=== PATIENT | male | born 1955 | race Caucasian/White ===

== ENCOUNTER 2016-09-18 07:43 | Emergency (ER) | payer MEDICAID ==
[2016-09-18] MEDS ORDERED: IPRATROPIUM/ALBUTEROL 3 ML NEB INH STA (08:20)
[2016-09-18] MEDS ORDERED: DEXAMETHASONE 10 MG/ML VIAL IVP STA (08:21)
[2016-09-18] MEDS ORDERED: DEXAMETHASONE 10 MG/ML VIAL ONE (08:27)
== END 2016-09-18 09:59 | disposition home or self-care (01) ==
DX: J44.1 Chronic obstructive pulmonary disease with (acute) exacerbation (principal); J45.901 Unspecified asthma with (acute) exacerbation; F17.200 Nicotine dependence, unspecified, uncomplicated
CPT/HCPCS: 36415; 71020; 80053; 83690; 83735; 83880; 84484; 85025; 93005; 93010; 94640; 96374; 99283; 99284; J7620

== ENCOUNTER 2021-07-18 15:29 | Outpatient (CLI) | payer MEDICAID | END 2021-07-18 15:30 | disposition EMS.NT | LOC: EMS 15:29 | DX: R53.1 Weakness (principal) ==

== ENCOUNTER 2021-07-19 17:33 | Outpatient (CLI) | payer MEDICARE, MEDICAID | END 2021-07-19 17:34 | disposition critical access hospital (66) | LOC: EMS 17:33 | DX: R41.0 Disorientation, unspecified (principal); R60.0 Localized edema | CPT/HCPCS: A0425; A0429; A0999 ==

== ENCOUNTER 2021-07-19 17:57 | Inpatient (IN) | payer MEDICARE, MEDICAID ==
[2021-07-19] MEDS ORDERED: SODIUM CHLORIDE 0.9% 1,000 ML IV STA ×2 (19:08)
[2021-07-19] MEDS ORDERED: THIAMINE INJ 100 MG, MAGNESIUM SULFATE 2 GM, MULTIVITAMIN 10 ML, FOLIC ACID INJ 1 MG in... IV ONE ×5 (19:08)
--- NOTE | 2021-07-19 19:08 | ED Physician Documentation ---
History of Present Illness - Stated complaint Stated Complaint: WAITING ON PLACEMENT - Chief complaint Chief Complaint: General - History obtained from History obtained from: Patient, EMS - History of Present Illness Timing: Today Pain level max: 0 Pain level now: 0 - Additonal information Additional information: Patient is a 66-year-old male brought in by EMS tonight. He lives at home alone and his sister had called for a hospice consult. When the hospice nurse arrived, they noticed that the patient was too weak to stand and take care of himself. They did not feel safe leaving him at home and so brought him here for further evaluation. Reportedly the patient has not seen a doctor for many years. Has a history of COPD but does not use oxygen or any medications. He apparently has been living off of [employer] for the past week or so. His sister has been checking on him and has noted that he has become increasingly weak. Review of Systems Unable to obtain: Confused Constitutional: denies: Fever GI: denies: Vomiting PD PAST MEDICAL HISTORY - Past Medical History Cardiovascular: None Respiratory: None Endocrine/Autoimmune: None - Past Surgical History Ortho: Amputation - Present Medications Home Medications: Ambulatory Orders Medication Instructions Recorded Confirmed Albuterol Sulfate [Proair Hfa 2 puffs IH QID #1 hfa.aer.ad 09/18/16 Inhaler] Azithromycin [Zithromax] 250 mg PO DAILY #6 tablet 09/18/16 dexAMETHasone [Decadron] 4 mg PO DAILY #10 tablet 09/18/16 - Allergies Allergies/Adverse Reactions: Allergies Allergy/AdvReac Type Severity Reaction Status Date / Time Penicillins Allergy Anaphylaxis Verified 09/18/16 07:50 - Social History Does the pt smoke?: Yes Smoking Status: Current every day smoker Does the pt drink ETOH?: Yes Does the pt have substance abuse?: No - Immunizations Immunizations: TDAP >10years/unknown - POLST Patient has POLST: No PD ED PE NORMAL - Vitals Vital signs reviewed: Yes - General General: No acute distress, Other (Alert, oriented to person and place but not to time. Slow to respond to questions. Often will stare into space prior to answering any questions.) - HEENT HEENT: PERRL, Other (Dry lips and tongue) - Cardiac Cardiac: RRR, Strong equal pulses - Respiratory Respiratory: No respiratory distress, Clear bilaterally - Abdomen Abdomen: Soft, Non tender, Non distended, Other (Mild erythema to the umbilicus. No drainage. No abscess) - Back Back: No spinal TTP - Derm Derm: Warm and dry, No rash - Extremities Extremities: No calf tenderness / cord, Other (1+ bilateral peripheral edema) - Neuro Neuro: Alert and oriented X 3 - Psych Psych: Normal mood, Normal affect Results - Vitals Vitals: Vital Signs - 24 hr 07/19/21 07/19/21 07/19/21 18:06 18:11 20:11 Temperature 36.5 C Heart Rate 112 H 76 80 Respiratory 24 18 16 Rate Blood Pressure 117/84 H 134/76 H 128/80 O2 Saturation 100 99 98 07/19/21 20:48 Temperature Heart Rate 81 Respiratory 18 Rate Blood Pressure 141/71 H O2 Saturation 99 Oxygen O2 Source Room air - Labs Labs: Laboratory Tests 07/19/21 07/19/21 07/19/21 19:18 19:18 19:18 WBC 6.0 RBC 3.98 L Hgb 12.8 L Hct 35.6 L MCV 89.4 MCH 32.2 H MCHC 36.0 RDW 15.4 H Plt Count 286 MPV 10.8 Neut # (Auto) 4.6 Lymph # (Auto) 0.6 L [place] # (Auto) 0.7 Eos # (Auto) 0.0 Baso # (Auto) 0.0 Absolute Nucleated RBC 0.00 Nucleated RBC % 0.0 PT INR APTT Sodium 133 L Potassium 4.8 Chloride 99 L Carbon Dioxide 18 L Anion Gap 16.0 H BUN 58 H Creatinine 2.2 H Estimated GFR (MDRD) 30 L Glucose 108 H Calcium 9.7 Total Bilirubin 1.5 H AST 80 H ALT 80 H Alkaline Phosphatase 61 Total Protein 7.4 Albumin 4.1 Globulin 3.3 Albumin/Globulin Ratio 1.2 Lipase 118 H TSH 3.44 Salicylates < 6.0 Acetaminophen < 10 L Ethyl Alcohol < 5.0 07/19/21 19:18 WBC RBC Hgb Hct MCV MCH MCHC RDW Plt Count MPV Neut # (Auto) Lymph # (Auto) [place] # (Auto) Eos # (Auto) Baso # (Auto) Absolute Nucleated RBC Nucleated RBC % PT 9.6 L INR 0.9 APTT 29.0 Sodium Potassium Chloride Carbon Dioxide Anion Gap BUN Creatinine Estimated GFR (MDRD) Glucose Calcium Total Bilirubin AST ALT Alkaline Phosphatase Total Protein Albumin Globulin Albumin/Globulin Ratio Lipase TSH Salicylates Acetaminophen Ethyl Alcohol PD MEDICAL DECISION MAKING - ED course Complexity details: reviewed results, re-evaluated patient, considered differential, d/w patient, d/w [facility] consultant ED course: 66-year-old male with what appears to be failure to thrive and significant dehydration. He was given a banana bag as well as IV fluids. He has what is presumed to be acute renal failure, though no labs are available as he has not been to a doctor in many years. He does have confusion and some metabolic acidosis, unclear if this is from the alcohol use or the dehydration or some other cause. The patient is mentally improved after fluids, but still is having difficulty concentrating and following a conversation. He becomes intermittently confused at times. Possible metabolic encephalopathy versus alcohol related encephalopathy? We will place the patient in observation for continued IV hydration and further evaluation. Patient will also need to ensure that he can be fed and tolerate oral intake. Likely will need social work as well. Hospice will plan on consulting tomorrow. Discussed with Dr. Guillen, hospitalist who accepts This document was made in part using voice recognition software. While efforts are made to proofread this document, sound alike and grammatical errors may occur. Departure - Departure Disposition: ED Place in Observation Clinical Impression: Renal insufficiency, Dehydration, Protein-calorie malnutrition, severe, Ketoacidosis Failure to thrive Qualifiers: Failure to thrive age range: in adult Qualified Code(s): R62.7 - Adult failure to thrive Condition: Stable
[2021-07-19 19:25] LABS: BASOPHILS % (AUTO) 0.2 %; EOSINOPHILS % (AUTO) 0.2 %; HCT - HEMATOCRIT 35.6 % (42.0-52.0); HGB - HEMOGLOBIN 12.8 g/dL (14.0-18.0); LYMPHOCYTES # (AUTO) 0.6 10^3/uL (1.5-3.5); LYMPHOCYTES % (AUTO) 10.7 %; MEAN CORPUSCULAR HEMOGLOBIN 32.2 pg (27.0-31.0); MEAN CORPUSCULAR VOLUME 89.4 fL (80.0-94.0); MEAN PLATELET VOLUME 10.8 fL (7.4-11.4); MONOCYTES # (AUTO) 0.7 10^3/uL (0.0-1.0); NEUTROPHILS # (AUTO) 4.6 10^3/uL (1.5-6.6); NEUTROPHILS % (AUTO) 76.6 %; PLT - PLATELET COUNT 286 10^3/uL (130-450); RED BLOOD COUNT 3.98 10^6/uL (4.70-6.10); RED CELL DISTRIBUTION WIDTH 15.4 % (12.0-15.0)
[2021-07-19 19:31] LABS: INR 0.9 (0.8-1.2); PT - PROTHROMBIN TIME 9.6 secs (9.9-12.6)
[2021-07-19] MEDS ORDERED: THIAMINE 100 MG/1 ML 2 ML MDV ONE (19:33)
[2021-07-19] MEDS ORDERED: MAGNESIUM SULFATE 1 GM/2 ML VIAL ONE (19:33)
[2021-07-19 19:43] LABS: ACETAMINOPHEN < 10 ug/mL (10-30); ALBUMIN 4.1 g/dL (3.2-5.5); ALBUMIN/GLOBULIN RATIO 1.2 (1.0-2.2); ALKALINE PHOSPHATASE 61 IU/L (42-121); ALT ALANINE AMINOTRANSFERASE 80 IU/L (10-60); AST ASPARTATE AMINOTRANSFERASE 80 IU/L (10-42); BILIRUBIN,TOTAL 1.5 mg/dL (0.2-1.0); BUN - BLOOD UREA NITROGEN 58 mg/dL (6-20); CALCIUM 9.7 mg/dL (8.5-10.3); CARBON DIOXIDE - CO2 18 mmol/L (21-32); CHLORIDE 99 mmol/L (101-111); CREATININE 2.2 mg/dL (0.6-1.2); ETOH - ETHANOL < 5.0 mg/dL; GFR - MDRD 30 (>89); GLUCOSE 108 mg/dL (70-100); LIPASE 118 U/L (22-51); POTASSIUM 4.8 mmol/L (3.5-5.0); SALICYLATE < 6.0 mg/dL; SODIUM 133 mmol/L (135-145); TOTAL PROTEIN 7.4 g/dL (6.7-8.2)
[2021-07-19] MEDS ORDERED: ONDANSETRON ODT 4 MG TABLET TL PRN (21:41)
[2021-07-19] MEDS ORDERED: ONDANSETRON 4 MG/2 ML VIAL IVP PRN (21:41)
[2021-07-19] MEDS ORDERED: SODIUM CHLORIDE FLUSH 0.9% 10 ML SYRINGE IVP PRN (21:41)
--- NOTE | 2021-07-19 21:46 | HISTORY & PHYSICAL EXAMINATION ---
Chief Complaint - Chief Complaint Chief Complaint: Someone brought me here <Richy Guillen - Last Filed: 07/19/21 22:28> History of Present Illness - Admitted From Admitted From:: Home - History Obtained From Records Reviewed: Jacquelin History obtained from: Patient, ER Physician, EMR <Richy Guillen - Last Filed: 07/19/21 22:28> - History of Present Illness HPI Comment/Other: This is a 66-year-old male with a history of COPD but not on oxygen or inhaler therapy who presented today via EMS due to increasing weakness and poor appetite. The emergency department physician informed me that the patient's family had made a referral to hospice on an outpatient basis. When the hospice nurse arrived today, it was noted that the patient was quite weak and there was concern that he was unable to take care of himself. It was felt that he was not safe at home alone and so he was brought to the emergency department for further evaluation. The emergency department physician told me the patient had been living off of [facility] for the past week. The patient himself tells me he is in the hospital but he is not sure why he is here. He states that someone brought him here but he is unsure who it is. He states he lives out in the [facility]. He feels confused over the past few days and has had decreased appetite over the past week. Reports no nausea, vomiting, abdominal pain. He states he has lost over 65 pounds. He has gotten weaker over the past few days and has had difficulty walking. He denies feeling depressed. He cannot explain to me why he has had a lack of appetite. He complains of urgency and hesitancy but no dysuria or hematuria. He feels like his bladder is full and he cannot fully urinate. He takes no medications. We discussed goals of care and he would like to be a DNR. (Richy Guillen) History - Past Medical History Cardiovascular: reports: None Respiratory: reports: COPD Endocrine/Autoimmune: reports: None - Past Surgical History Ortho: reports: Amputation - Family & Social History Family History Comment/Other: He reports no family history to his knowledge. Living arrangement: At home Living Situation: Alone Social History Notes: He reportedly lives alone in the [facility]. He continues to smoke and has smoked over a pack a day for about 40 years. He previously drank alcohol but states he has not drank for a few days. He used to predominately drink beer. - POLST Patient has POLST: No <Richy Guillen - Last Filed: 07/19/21 22:28> - Past Medical History Cardiovascular: reports: High cholesterol Respiratory: reports: COPD (lifelong smoker, used albuterol, breo ellipta, prednisone. Seen once 2016 and once 2020. left AMA) Endocrine/Autoimmune: reports: Other (Vitamin D deficiency) Musculoskeletal: reports: Osteoarthritis (with R shoulder and L hip pain) Other Past Medical History: chronic alcohol abuse with elevated LFTs - Past Surgical History Ortho: reports: Amputation (finger amputations age 1 & 4, sking grafting age 4) <Criselda Roca - Last Filed: 07/20/21 14:46> Meds/Allgy <Richy Guillen - Last Filed: 07/19/21 22:28> <Criselda Roca - Last Filed: 07/20/21 14:46> - Home Medications Home Medications: Ambulatory Orders Medication Instructions Recorded Confirmed No Known Home Medications 07/20/21 07/20/21 - Allergies Allergies/Adverse Reactions: Allergies Allergy/AdvReac Type Severity Reaction Status Date / Time Penicillins Allergy Anaphylaxis Verified 09/18/16 07:50 Review of Systems - Constitutional Constitutional: reports: Weakness, Poor appetite, Weight loss. denies: Fatigue, Fever, Chills - Cardiovascular Cariovascular: denies: Chest pain, Edema, Exertional dyspnea, Decr. exercise tolerance - Respiratory Respiratory: denies: Cough, SOB at rest, SOB with exertion - Gastrointestinal Gastrointestinal: reports: Poor appetite. denies: Abdominal pain, Nausea, Vomiting - Genitourinary Genitourinary: reports: Urgency. denies: Dysuria, Frequency, Hematuria - Musculoskeletal Musculoskeletal: reports: Muscle weakness. denies: Limited range of motion - Integumentary Integumentary: denies: Rash - Neurological Neurological: reports: General weakness. denies: Focal weakness - All Other Systems All Other Systems: reports: Reviewed and negative <Richy Guillen - Last Filed: 07/19/21 22:28> <Richy Guillen - Last Filed: 07/19/21 22:28> Prior Level of Functionality: He was previously living alone. (UrsulaRichy lagunas) Exam - Vital Signs Reviewed Vital Signs: Yes - Physical Exam General Appearance: positive: Other (Appears frail, thin, and disheveled.) Eyes Bilateral: positive: Conjunctivae nml ENT: positive: Dry mucous membranes. negative: No signs of dehydration Neck: positive: Nml inspection Respiratory: positive: No respiratory distress. negative: Wheezes, Rales Cardiovascular: positive: Regular rate & rhythm. negative: Tachycardia Abdomen: positive: No distention, Tenderness (Mild tenderness in suprapubic region.). negative: Guarding, Rebound Skin: positive: Warm, Dry Extremities: positive: No pedal edema, Other (There is significant muscular atrophy in his bilateral upper and lower extremities. 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 He has partial rotation of the second digit of his right hand.) Neurologic/Psychiatric: positive: Disoriented to time, Other (No focal deficits.). negative: Disoriented to person, Disoriented to place <Richy Guillen - Last Filed: 07/19/21 22:28> - Vital Signs Vital Signs: Vital Signs x48h Temp Pulse Pulse Pulse Pulse Resp BP 07/20/21 14:01 92 85 78 123/87 H 07/20/21 11:35 92 85 78 123/87 H 07/20/21 11:30 36.4 C L 75 18 07/20/21 08:00 36.5 C 90 16 BP BP BP Pulse Ox 07/20/21 14:01 130/82 H 133/65 H 07/20/21 11:35 130/82 H 133/65 H 07/20/21 11:30 139/65 H 99 07/20/21 08:00 137/72 H 100 Conclusion/Plan - Problem List (1) Altered mental status Conclusion/Plan: He does appear somewhat altered. He is oriented to self and location but not to year or month. He is a poor historian and admits to feeling confused over the past few days. This may be secondary to urinary retention, infection, alcoholism or potentially dementia. He has no focal deficits to suggest a strok e. We will check a bladder scan given his urgency and hesitancy to ensure there is no urinary retention. We will check a urinalysis given his urinary symptoms. We will treat him with thiamine and IV fluids. Check an ammonia level, vitamin b12 and folate. If there is no improvement then we will look to obtain a CT of the head. Qualifiers: Altered mental status type: disorientation Qualified Code(s): R41.0 - Disorientation, unspecified (2) Acute kidney injury Conclusion/Plan: This is likely secondary to decreased oral intake and hypovolemia. Most recent labs available to us are from 2017 when he had normal renal function. We will check bladder scan for a post void residual to ensure there is no urinary retention as he does complain of urgency and hesitancy. Will consider renal ultrasound. We will hydrate him with D5/half-normal saline. Avoid nephrotoxins. (3) Ketoacidosis Conclusion/Plan: He has an elevated anion gap acidosis with positive ketones which I suspect is likely due to starvation ketoacidosis. Less likely to be alcoholic acidosis but this is also in the differential. We will place him on D5 half-normal saline and recheck labs in the morning. Liquid diet as tolerated. (4) Failure to thrive Conclusion/Plan: Etiology of this is not clear but concern is for underlying depression or malignancy. We will encourage oral intake and consult nutrition. We will look to obtain a CT of the chest/abdomen/pelvis tomorrow if his renal function improves to evaluate for occult malignancy. director data will also be meeting with the patient tomorrow to discuss what entails of hospice as there was an outpatient referral. Qualifiers: Failure to thrive age range: in adult Qualified Code(s): R62.7 - Adult failure to thrive (5) Protein-calorie malnutrition, severe Conclusion/Plan: He meets criteria for severe protein calorie malnutrition. We will encourage oral intake and ensure supplements with meals. Nutrition consult. - Lab Results Lab results reviewed: Yes Fish Bones: 07/19/21 19:18 07/19/21 19:18 <Richy Guillen - Last Filed: 07/19/21 22:28> - Lab Results Fish Bones: 07/20/21 05:10 07/20/21 05:10 <Criselda Roca - Last Filed: 07/20/21 14:46> Core Measures - Anticipated LOS I expect patient to be DC'd or transferred within 96 hours.: Yes - DVT/VTE - Prophylaxis VTE/DVT Device ordered at admit?: Yes VTE/DVT Prophylaxis med ordered at admit?: No <Richy Guillen - Last Filed: 07/19/21 22:28> - Issues Hospital Issues and Management Plan: This 66-year-old male presents due to decreased oral intake and failure to thriv e found to have acute kidney injury. Will place in observation for IV hydration and for consideration of imaging to evaluate for occult malignancy. Consult social work to assist with disposition. (Richy Guillen)
[2021-07-19 22:09] LABS: MAGNESIUM 3.2 mg/dL (1.7-2.8); PHOSPHORUS 4.9 mg/dL (2.5-4.6)
[2021-07-19 22:10] LABS: KETONES, SERUM (ACETEST) SMALL (NEGATIVE)
[2021-07-19] MEDS: D5.45NS W/20 MEQ KCL 1,000 ML IV SCH (23:20)
[2021-07-19 23:34] LABS: GLUCOSE, URINE (UA) NEGATIVE (NEGATIVE); KETONES,URINE (UA) TRACE mg/dL (NEGATIVE); LEUKOCYTE ESTERASE, URINE NEGATIVE (NEGATIVE); MUDS CUTOFF CONCENTRATIONS CUTOFF CONC BELOW:; NITRITE,URINE NEGATIVE (NEGATIVE); OCCULT BLOOD,URINE TRACE-LYSE (NEGATIVE); PROTEIN,URINE NEGATIVE (NEGATIVE); UROBILINOGEN,URINE 0.2 (NORMAL) E.U./dL (NORMAL)
[2021-07-19 23:41] LABS: BILIRUBIN,URINE NEGATIVE (NEGATIVE); CLARITY,URINE CLEAR (CLEAR); ICTOTEST,URINE NEGATIVE
[2021-07-19 23:44] LABS: AMPHETAMINE SCREEN,URINE NEGATIVE (NEGATIVE); BARBITURATE SCREEN,UR NEGATIVE (NEGATIVE); BENZODIAZEPINES SCREEN, URINE NEGATIVE (NEGATIVE); COCAINE SCREEN URINE NEGATIVE (NEGATIVE); METHADONE SCREEN, URINE NEGATIVE (NEGATIVE); METHAMPHETAMINES SCREEN, URINE NEGATIVE (NEGATIVE); OPIATE SCREEN, URINE NEGATIVE (NEGATIVE); OXYCODONE SCREEN, URINE NEGATIVE (NEGATIVE); PROPOXYPHENE SCREEN, URINE NEGATIVE (NEGATIVE); THC CANNABINOID SCREEN, URINE NEGATIVE (NEGATIVE); TRICYCLIC ANTIDEPRESSANT,URINE NEGATIVE (NEGATIVE)
[2021-07-19 23:52] LABS: B. PARAPERTUSSIS- RESP PCR PAN NOT DETECTED; B. PERTUSSIS- RESP PCR PANEL NOT DETECTED; C. PNEUMONIAE- RESP PCR PANEL NOT DETECTED; CORONAVIRUS 229E-RESP PCR NOT DETECTED; CORONAVIRUS HKU1-RESP PCR NOT DETECTED; CORONAVIRUS NL63-RESP PCR NOT DETECTED; CORONAVIRUS OC43-RESP PCR NOT DETECTED; HUMAN METAPNEUMOVIRUS NOT DETECTED; INFLUENZA A- RESP PCR PANEL NOT DETECTED; INFLUENZA B - RESP PCR PANEL NOT DETECTED; M. PNEUMONIAE- RESP PCR PANEL NOT DETECTED; PARAINFLUENZA VIRUS 1 NOT DETECTED; PARAINFLUENZA VIRUS 2 NOT DETECTED; PARAINFLUENZA VIRUS 3 NOT DETECTED; PARAINFLUENZA VIRUS 4 NOT DETECTED; RHINOVIRUS/ENTEROVIRUS NOT DETECTED; RSV- RESP PCR PANEL NOT DETECTED; SARS-CoV-2 -RESP PCR PANEL NOT DETECTED
[2021-07-20] MEDS: TAMSULOSIN 0.4 MG CAPSULE PO SCH ×2 (00:08→21:24)
[2021-07-20] MEDS: SODIUM CHLORIDE FLUSH 0.9% 10 ML SYRINGE IVP SCH ×3 (00:08→17:09)
[2021-07-20 05:47] LABS: BASOPHILS % (AUTO) 0.1 %; EOSINOPHILS % (AUTO) 0.4 %; HCT - HEMATOCRIT 30.4 % (42.0-52.0); HGB - HEMOGLOBIN 10.9 g/dL (14.0-18.0); LYMPHOCYTES # (AUTO) 0.6 10^3/uL (1.5-3.5); MEAN CORPUSCULAR HEMOGLOBIN 32.5 pg (27.0-31.0); MEAN CORPUSCULAR HGB CONC 35.9 g/dL (32.0-36.0); MEAN CORPUSCULAR VOLUME 90.7 fL (80.0-94.0); MEAN PLATELET VOLUME 10.8 fL (7.4-11.4); MONOCYTES # (AUTO) 0.9 10^3/uL (0.0-1.0); MONOCYTES % (AUTO) 12.6 %; NEUTROPHILS # (AUTO) 5.5 10^3/uL (1.5-6.6); NEUTROPHILS % (AUTO) 77.5 %; PLT - PLATELET COUNT 252 10^3/uL (130-450); RED BLOOD COUNT 3.35 10^6/uL (4.70-6.10); RED CELL DISTRIBUTION WIDTH 15.7 % (12.0-15.0); WHITE BLOOD COUNT 7.1 x10^3/uL (4.8-10.8)
[2021-07-20 05:57] LABS: CALCIUM 8.7 mg/dL (8.5-10.3); CREATININE 1.6 mg/dL (0.6-1.2); MAGNESIUM 2.8 mg/dL (1.7-2.8); PHOSPHORUS 3.6 mg/dL (2.5-4.6)
[2021-07-20 06:23] LABS: FOLATE 11.07 ng/mL (5.90 - >24.8)
[2021-07-20] MEDS: D5.45NS W/20 MEQ KCL 1,000 ML IV SCH (06:38)
[2021-07-20] MEDS: ACETAMINOPHEN 325 MG TABLET PO PRN (06:58)
[2021-07-20] MEDS ORDERED: LACTATED RINGERS 1,000 ML IV SCH (07:00)
[2021-07-20] MEDS: THIAMINE 100 MG TABLET PO SCH (09:44)
[2021-07-20] MEDS: NICOTINE 14 MG PATCH TOP SCH (09:45)
--- NOTE | 2021-07-20 10:50 | PROVIDER PROGRESS NOTE ---
Subjective - Prog Note Date Prog Note Date: 07/20/21 - Subjective Pt reports feeling: No change Subjective: Patient reports feeling well today. He has been eating and resting well. Denies pain or discomfort. He knows that he is in the hospital but is unsure why stating that he came here "to bring another man in." He believes that he is currently in [place]. Current Medications - Current Medications Current Medications: Active Medications Acetaminophen (Acetaminophen 325 Mg Tablet) 650 mg PO Q4HR PRN PRN Reason: Pain 1 to 4 Last Admin: 07/20/21 06:58 Dose: 650 mg Lactated Ringer's (Lr) 1,000 mls @ 125 mls/hr IV .Q8H [facility] Stop: 07/20/21 14:59 Last Admin: 07/20/21 09:05 Dose: 125 mls/hr Multivitamins/Minerals (Multivitamin W/Minerals Tablet) 1 tab PO DAILYWM [facility] Nicotine (Nicotine 14 Mg Patch) 1 patch TOP DAILY [facility] Last Admin: 07/20/21 09:45 Dose: 1 patch Ondansetron HCl (Ondansetron Odt 4 Mg Tablet) 4 mg TL Q6HR PRN PRN Reason: Nausea / Vomiting Ondansetron HCl (Ondansetron 4 Mg/2 Ml Vial) 4 mg IVP Q6HR PRN PRN Reason: Nausea / Vomiting Sodium Chloride (Sodium Chloride Flush 0.9% 10 Ml Syringe) 10 ml IVP PRN PRN PRN Reason: NEEDED PER PROVIDER ORDERS Sodium Chloride (Sodium Chloride Flush 0.9% 10 Ml Syringe) 10 ml IVP 0100,0900,1700 [facility] Last Admin: 07/20/21 09:05 Dose: 10 ml Tamsulosin HCl (Tamsulosin 0.4 Mg Capsule) 0.4 mg PO HS [facility] Last Admin: 07/20/21 00:08 Dose: 0.4 mg Thiamine HCl (Thiamine 100 Mg Tablet) 100 mg PO DAILY [facility] Last Admin: 07/20/21 09:44 Dose: 100 mg No Known Home Medications 07/20/21 Objective - Vital Signs/Intake & Output Reviewed Vital Signs: Yes Vital Signs: Vital Signs x48h Temp Pulse Resp BP Pulse Ox 07/20/21 08:00 36.5 C 90 16 137/72 H 100 07/20/21 05:10 36.5 C 99 16 118/67 99 Intake & Output: Intake & Output 07/17/21 07/18/21 07/19/21 07/20/21 23:59 23:59 23:59 23:59 Intake Total 2257.70 1808.5 Output Total 1550 150 Balance 707.70 1658.5 - Objective General Appearance: positive: No acute distress, Alert, Other (Thin, cachectic male who appears older than stated age) Eyes Bilateral: positive: Normal inspection, PERRL, EOMI ENT: positive: ENT inspection nml, No signs of dehydration, Other (No teeth) Neck: positive: Nml inspection, No JVD, Trachea midline Respiratory: positive: Chest non-tender, No respiratory distress, Breath sounds nml. 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 Atrophy of extremities.) Neurologic/Psychiatric: positive: CN's nml (2-12), Sensation nml, Disoriented to place, Disoriented to time, Weakness, Other (He is easily distracted and unable to finish most thoughts). negative: Disoriented to person - Lab Results Fish Bones: 07/20/21 05:10 07/20/21 05:10 Other Labs: Lab Results x24hrs 07/20/21 07/20/21 07/20/21 Range/Units 05:10 05:10 05:10 WBC 7.1 (4.8-10.8) x10^3/uL RBC 3.35 L (4.70-6.10) 10^6/uL Hgb 10.9 L (14.0-18.0) g/dL Hct 30.4 L (42.0-52.0) % MCV 90.7 (80.0-94.0) fL MCH 32.5 H (27.0-31.0) pg MCHC 35.9 (32.0-36.0) g/dL RDW 15.7 H (12.0-15.0) % Plt Count 252 (130-450) 10^3/uL MPV 10.8 (7.4-11.4) fL Neut # (Auto) 5.5 (1.5-6.6) 10^3/uL Lymph # (Auto) 0.6 L (1.5-3.5) 10^3/uL Brule # (Auto) 0.9 (0.0-1.0) 10^3/uL Eos # (Auto) 0.0 (0.0-0.7) 10^3/uL Baso # (Auto) 0.0 (0.0-0.1) 10^3/uL Absolute Nucleated RBC 0.00 x10^3/uL Nucleated RBC % 0.0 /100WBC PT (9.9-12.6) secs INR (0.8-1.2) APTT (24.9-33.3) secs Sodium 136 (135-145) mmol/L Potassium 4.0 (3.5-5.0) mmol/L Chloride 105 (101-111) mmol/L Carbon Dioxide 22 (21-32) mmol/L Anion Gap 9.0 (6-13) BUN 52 H (6-20) mg/dL Creatinine 1.6 H (0.6-1.2) mg/dL Estimated GFR (MDRD) 43 L (>89) Glucose 124 H (70-100) mg/dL Calcium 8.7 (8.5-10.3) mg/dL Phosphorus 3.6 (2.5-4.6) mg/dL Magnesium 2.8 (1.7-2.8) mg/dL Total Bilirubin (0.2-1.0) mg/dL AST (10-42) IU/L ALT (10-60) IU/L Alkaline Phosphatase (42-121) IU/L Ammonia (7-35) umol/L Total Protein (6.7-8.2) g/dL Albumin (3.2-5.5) g/dL Globulin (2.1-4.2) g/dL Albumin/Globulin Ratio (1.0-2.2) Lipase (22-51) U/L Vitamin B12 772 (180-914) pg/mL Folate 11.07 (5.90 - >24.8) ng/mL TSH (0.34-5.60) uIU/mL Urine Color Urine Clarity (CLEAR) Urine pH (5.0-7.5) PH Ur Specific [place] (1.002-1.030) Urine Protein (NEGATIVE) mg/dL Urine Glucose (UA) (NEGATIVE) mg/dL Urine Ketones (NEGATIVE) mg/dL Urine Occult Blood (NEGATIVE) Urine Nitrite (NEGATIVE) Urine Bilirubin (NEGATIVE) Urine Urobilinogen (NORMAL) E.U./dL Ur Leukocyte Esterase (NEGATIVE) Ur Microscopic Review Urine Culture Comments Nasal Adenovirus (PCR) Nasal B. parapertussis DNA (PCR) Nasal Coronavir 229E PCR Nasal Coronavir HKU1 PCR Nasal Coronavir NL63 PCR Nasal Coronavir OC43 PCR Nasal Enterovir/Rhinovir PCR Nasal Influenza B PCR Nasal Influenza A PCR Nasal Parainfluen 1 PCR Nasal Parainfluen 2 PCR Nasal Parainfluen 3 PCR Nasal Parainfluen 4 PCR Nasal RSV (PCR) Nasal B.pertussis DNA PCR Nasal C.pneumoniae (PCR) [place] Human Metapneumo PCR Nasal M.pneumoniae (PCR) Nasal SARS-CoV-2 (PCR) Salicylates mg/dL Urine Opiates Screen (NEGATIVE) Ur Oxycodone Screen (NEGATIVE) Urine Methadone Screen (NEGATIVE) Ur Propoxyphene Screen (NEGATIVE) Acetaminophen (10-30) ug/mL Ur Barbiturates Screen (NEGATIVE) Ur Tricyclics Screen (NEGATIVE) Ur Phencyclidine Scrn (NEGATIVE) Ur Amphetamine Screen (NEGATIVE) U Methamphetamines Scrn (NEGATIVE) U Benzodiazepines Scrn (NEGATIVE) Urine Cocaine Screen (NEGATIVE) U Cannabinoids Screen (NEGATIVE) Ethyl Alcohol mg/dL Serum Ketones (NEGATIVE) 07/19/21 07/19/21 07/19/21 Range/Units 23:35 22:35 21:52 WBC (4.8-10.8) x10^3/uL RBC (4.70-6.10) 10^6/uL Hgb (14.0-18.0) g/dL Hct (42.0-52.0) % MCV (80.0-94.0) fL MCH (27.0-31.0) pg MCHC (32.0-36.0) g/dL RDW (12.0-15.0) % Plt Count (130-450) 10^3/uL MPV (7.4-11.4) fL Neut # (Auto) (1.5-6.6) 10^3/uL Lymph # (Auto) (1.5-3.5) 10^3/uL Brule # (Auto) (0.0-1.0) 10^3/uL Eos # (Auto) (0.0-0.7) 10^3/uL Baso # (Auto) (0.0-0.1) 10^3/uL Absolute Nucleated RBC x10^3/uL Nucleated RBC % /100WBC PT (9.9-12.6) secs INR (0.8-1.2) APTT (24.9-33.3) secs Sodium (135-145) mmol/L Potassium (3.5-5.0) mmol/L Chloride (101-111) mmol/L Carbon Dioxide (21-32) mmol/L Anion Gap (6-13) BUN (6-20) mg/dL Creatinine (0.6-1.2) mg/dL Estimated GFR (MDRD) (>89) Glucose (70-100) mg/dL Calcium (8.5-10.3) mg/dL Phosphorus (2.5-4.6) mg/dL Magnesium (1.7-2.8) mg/dL Total Bilirubin (0.2-1.0) mg/dL AST (10-42) IU/L ALT (10-60) IU/L Alkaline Phosphatase (42-121) IU/L Ammonia < 10.0 (7-35) umol/L Total Protein (6.7-8.2) g/dL Albumin (3.2-5.5) g/dL Globulin (2.1-4.2) g/dL Albumin/Globulin Ratio (1.0-2.2) Lipase (22-51) U/L Vitamin B12 (180-914) pg/mL Folate (5.90 - >24.8) ng/mL TSH (0.34-5.60) uIU/mL Urine Color DARK YELLOW Urine Clarity CLEAR (CLEAR) Urine pH 5.0 (5.0-7.5) PH Ur Specific [place] >=1.030 H (1.002-1.030) Urine Protein NEGATIVE (NEGATIVE) mg/dL Urine Glucose (UA) NEGATIVE (NEGATIVE) mg/dL Urine Ketones TRACE (NEGATIVE) mg/dL Urine Occult Blood TRACE-LYSE (NEGATIVE) Urine Nitrite NEGATIVE (NEGATIVE) Urine Bilirubin NEGATIVE (NEGATIVE) Urine Urobilinogen 0.2 (NORMAL) (NORMAL) E.U./dL Ur Leukocyte Esterase NEGATIVE (NEGATIVE) Ur Microscopic Review NOT INDICATED Urine Culture Comments NOT INDICATED Nasal Adenovirus (PCR) NOT DETECTED Nasal B. parapertussis DNA (PCR) NOT DETECTED Nasal Coronavir 229E PCR NOT DETECTED Nasal Coronavir HKU1 PCR NOT DETECTED Nasal Coronavir NL63 PCR NOT DETECTED Nasal Coronavir OC43 PCR NOT DETECTED Nasal Enterovir/Rhinovir PCR NOT DETECTED Nasal Influenza B PCR NOT DETECTED Nasal Influenza A PCR NOT DETECTED Nasal Parainfluen 1 PCR NOT DETECTED Nasal Parainfluen 2 PCR NOT DETECTED Nasal Parainfluen 3 PCR NOT DETECTED Nasal Parainfluen 4 PCR NOT DETECTED Nasal RSV (PCR) NOT DETECTED Nasal B.pertussis DNA PCR NOT DETECTED Nasal C.pneumoniae (PCR) NOT DETECTED [place] Human Metapneumo PCR NOT DETECTED Nasal M.pneumoniae (PCR) NOT DETECTED Nasal SARS-CoV-2 (PCR) NOT DETECTED Salicylates mg/dL Urine Opiates Screen NEGATIVE (NEGATIVE) Ur Oxycodone Screen NEGATIVE (NEGATIVE) Urine Methadone Screen NEGATIVE (NEGATIVE) Ur Propoxyphene Screen NEGATIVE (NEGATIVE) Acetaminophen (10-30) ug/mL Ur Barbiturates Screen NEGATIVE (NEGATIVE) Ur Tricyclics Screen NEGATIVE (NEGATIVE) Ur Phencyclidine Scrn NEGATIVE (NEGATIVE) Ur Amphetamine Screen NEGATIVE (NEGATIVE) U Methamphetamines Scrn NEGATIVE (NEGATIVE) U Benzodiazepines Scrn NEGATIVE (NEGATIVE) Urine Cocaine Screen NEGATIVE (NEGATIVE) U Cannabinoids Screen NEGATIVE (NEGATIVE) Ethyl Alcohol mg/dL Serum Ketones (NEGATIVE) 07/19/21 07/19/21 07/19/21 Range/Units 21:52 19:18 19:18 WBC (4.8-10.8) x10^3/uL RBC (4.70-6.10) 10^6/uL Hgb (14.0-18.0) g/dL Hct (42.0-52.0) % MCV (80.0-94.0) fL MCH (27.0-31.0) pg MCHC (32.0-36.0) g/dL RDW (12.0-15.0) % Plt Count (130-450) 10^3/uL MPV (7.4-11.4) fL Neut # (Auto) (1.5-6.6) 10^3/uL Lymph # (Auto) (1.5-3.5) 10^3/uL Brule # (Auto) (0.0-1.0) 10^3/uL Eos # (Auto) (0.0-0.7) 10^3/uL Baso # (Auto) (0.0-0.1) 10^3/uL Absolute Nucleated RBC x10^3/uL Nucleated RBC % /100WBC PT 9.6 L (9.9-12.6) secs INR 0.9 (0.8-1.2) APTT 29.0 (24.9-33.3) secs Sodium (135-145) mmol/L Potassium (3.5-5.0) mmol/L Chloride (101-111) mmol/L Carbon Dioxide (21-32) mmol/L Anion Gap (6-13) BUN (6-20) mg/dL Creatinine (0.6-1.2) mg/dL Estimated GFR (MDRD) (>89) Glucose (70-100) mg/dL Calcium (8.5-10.3) mg/dL Phosphorus 4.9 H (2.5-4.6) mg/dL Magnesium 3.2 H (1.7-2.8) mg/dL Total Bilirubin (0.2-1.0) mg/dL AST (10-42) IU/L ALT (10-60) IU/L Alkaline Phosphatase (42-121) IU/L Ammonia (7-35) umol/L Total Protein (6.7-8.2) g/dL Albumin (3.2-5.5) g/dL Globulin (2.1-4.2) g/dL Albumin/Globulin Ratio (1.0-2.2) Lipase (22-51) U/L Vitamin B12 (180-914) pg/mL Folate (5.90 - >24.8) ng/mL TSH 3.44 (0.34-5.60) uIU/mL Urine Color Urine Clarity (CLEAR) Urine pH (5.0-7.5) PH Ur Specific [place] (1.002-1.030) Urine Protein (NEGATIVE) mg/dL Urine Glucose (UA) (NEGATIVE) mg/dL Urine Ketones (NEGATIVE) mg/dL Urine Occult Blood (NEGATIVE) Urine Nitrite (NEGATIVE) Urine Bilirubin (NEGATIVE) Urine Urobilinogen (NORMAL) E.U./dL Ur Leukocyte Esterase (NEGATIVE) Ur Microscopic Review Urine Culture Comments Nasal Adenovirus (PCR) Nasal B. parapertussis DNA (PCR) Nasal Coronavir 229E PCR Nasal Coronavir HKU1 PCR Nasal Coronavir NL63 PCR Nasal Coronavir OC43 PCR Nasal Enterovir/Rhinovir PCR Nasal Influenza B PCR Nasal Influenza A PCR Nasal Parainfluen 1 PCR Nasal Parainfluen 2 PCR Nasal Parainfluen 3 PCR Nasal Parainfluen 4 PCR Nasal RSV (PCR) Nasal B.pertussis DNA PCR Nasal C.pneumoniae (PCR) [place] Human Metapneumo PCR Nasal M.pneumoniae (PCR) Nasal SARS-CoV-2 (PCR) Salicylates mg/dL Urine Opiates Screen (NEGATIVE) Ur Oxycodone Screen (NEGATIVE) Urine Methadone Screen (NEGATIVE) Ur Propoxyphene Screen (NEGATIVE) Acetaminophen (10-30) ug/mL Ur Barbiturates Screen (NEGATIVE) Ur Tricyclics Screen (NEGATIVE) Ur Phencyclidine Scrn (NEGATIVE) Ur Amphetamine Screen (NEGATIVE) U Methamphetamines Scrn (NEGATIVE) U Benzodiazepines Scrn (NEGATIVE) Urine Cocaine Screen (NEGATIVE) U Cannabinoids Screen (NEGATIVE) Ethyl Alcohol mg/dL Serum Ketones SMALL H (NEGATIVE) 07/19/21 07/19/21 Range/Units 19:18 19:18 WBC 6.0 (4.8-10.8) x10^3/uL RBC 3.98 L (4.70-6.10) 10^6/uL Hgb 12.8 L (14.0-18.0) g/dL Hct 35.6 L (42.0-52.0) % MCV 89.4 (80.0-94.0) fL MCH 32.2 H (27.0-31.0) pg MCHC 36.0 (32.0-36.0) g/dL RDW 15.4 H (12.0-15.0) % Plt Count 286 (130-450) 10^3/uL MPV 10.8 (7.4-11.4) fL Neut # (Auto) 4.6 (1.5-6.6) 10^3/uL Lymph # (Auto) 0.6 L (1.5-3.5) 10^3/uL Brule # (Auto) 0.7 (0.0-1.0) 10^3/uL Eos # (Auto) 0.0 (0.0-0.7) 10^3/uL Baso # (Auto) 0.0 (0.0-0.1) 10^3/uL Absolute Nucleated RBC 0.00 x10^3/uL Nucleated RBC % 0.0 /100WBC PT (9.9-12.6) secs INR (0.8-1.2) APTT (24.9-33.3) secs Sodium 133 L (135-145) mmol/L Potassium 4.8 (3.5-5.0) mmol/L Chloride 99 L (101-111) mmol/L Carbon Dioxide 18 L (21-32) mmol/L Anion Gap 16.0 H (6-13) BUN 58 H (6-20) mg/dL Creatinine 2.2 H (0.6-1.2) mg/dL Estimated GFR (MDRD) 30 L (>89) Glucose 108 H (70-100) mg/dL Calcium 9.7 (8.5-10.3) mg/dL Phosphorus (2.5-4.6) mg/dL Magnesium (1.7-2.8) mg/dL Total Bilirubin 1.5 H (0.2-1.0) mg/dL AST 80 H (10-42) IU/L ALT 80 H (10-60) IU/L Alkaline Phosphatase 61 (42-121) IU/L Ammonia (7-35) umol/L Total Protein 7.4 (6.7-8.2) g/dL Albumin 4.1 (3.2-5.5) g/dL Globulin 3.3 (2.1-4.2) g/dL Albumin/Globulin Ratio 1.2 (1.0-2.2) Lipase 118 H (22-51) U/L Vitamin B12 (180-914) pg/mL Folate (5.90 - >24.8) ng/mL TSH (0.34-5.60) uIU/mL Urine Color Urine Clarity (CLEAR) Urine pH (5.0-7.5) PH Ur Specific [place] (1.002-1.030) Urine Protein (NEGATIVE) mg/dL Urine Glucose (UA) (NEGATIVE) mg/dL Urine Ketones (NEGATIVE) mg/dL Urine Occult Blood (NEGATIVE) Urine Nitrite (NEGATIVE) Urine Bilirubin (NEGATIVE) Urine Urobilinogen (NORMAL) E.U./dL Ur Leukocyte Esterase (NEGATIVE) Ur Microscopic Review Urine Culture Comments Nasal Adenovirus (PCR) Nasal B. parapertussis DNA (PCR) Nasal Coronavir 229E PCR Nasal Coronavir HKU1 PCR Nasal Coronavir NL63 PCR Nasal Coronavir OC43 PCR Nasal Enterovir/Rhinovir PCR Nasal Influenza B PCR Nasal Influenza A PCR Nasal Parainfluen 1 PCR Nasal Parainfluen 2 PCR Nasal Parainfluen 3 PCR Nasal Parainfluen 4 PCR Nasal RSV (PCR) Nasal B.pertussis DNA PCR Nasal C.pneumoniae (PCR) [place] Human Metapneumo PCR Nasal M.pneumoniae (PCR) Nasal SARS-CoV-2 (PCR) Salicylates < 6.0 mg/dL Urine Opiates Screen (NEGATIVE) Ur Oxycodone Screen (NEGATIVE) Urine Methadone Screen (NEGATIVE) Ur Propoxyphene Screen (NEGATIVE) Acetaminophen < 10 L (10-30) ug/mL Ur Barbiturates Screen (NEGATIVE) Ur Tricyclics Screen (NEGATIVE) Ur Phencyclidine Scrn (NEGATIVE) Ur Amphetamine Screen (NEGATIVE) U Methamphetamines Scrn (NEGATIVE) U Benzodiazepines Scrn (NEGATIVE) Urine Cocaine Screen (NEGATIVE) U Cannabinoids Screen (NEGATIVE) Ethyl Alcohol < 5.0 mg/dL Serum Ketones (NEGATIVE) ABX Reporting Has patient been on IV antibiotics over the past 48 hours?: No Sepsis Event Note (H) - Evaluation Current Stage of Sepsis: Ruled out Assessment/Plan - Problem List (1) Altered mental status Impression: He continues to be confused today, oriented to self only. He knows that he is in the hospital but does not know the city. He is disoriented to time and event. This may be secondary to urinary retention, infection, alcoholism, or potentially dementia. He has no focal deficits to suggest a stroke. His ammonia, B12 and folate levels were normal. He has no significant electrolyte derangements. Toxicology screen unremarkable. He is afebrile, WBC normal and UA shows no signs of infection. He currently has a spangler and we will continue to hydrate him with IV fluids and monitor I/Os. He is also receiving tamsulosin for urinary retention. He has also received a multivitamin with thiamine as well as a potassium/dextrose/sodium chloride infusion If there is no improvement then we will consider a head CT Qualifiers: Altered mental status type: disorientation Qualified Code(s): R41.0 - Disorientation, unspecified (2) Acute kidney injury Impression: This is likely secondary to decreased oral intake and hypovolemia. His renal function is improving today, BUN 52, Cr 1.6, GFR 43. However, he is still having minimal urine output in his spangler. We will administer sodium bicarbonate 100 meq in dextrose 1,100 mls at 100 mls/hr IV to improver his kidney function so that we can give contrast dye for CT study tomorrow. Hydrated with 1000 mL LR at 125 mL/hr IV today Continue to monitor BMP and I/Os (3) Ketoacidosis Impression: He presented with an elevated anion gap acidosis with positive ketones, likely due to starvation ketoacidosis, possibly alcoholic ketoacidosis. He received D5 half-normal saline over night and anion gap has normalized at 9.0. Presently tolerating a normal diet. (4) Failure to thrive Impression: Etiology of this is not clear but concern is for underlying depression or malignancy. PT/OT consult today to assess mobility and level of function Continue to encourage oral intake. We will look to obtain a CT of the chest/abdomen/pelvis tomorrow if his renal function improves to evaluate for occult malignancy. We will work with social work and the family today to get a better history and formulate a plan for his care moving forward. director life insurance will also be meeting with the patient to discuss what entails of hospice as there was an outpatient referral. Qualifiers: Failure to thrive age range: in adult Qualified Code(s): R62.7 - Adult failure to thrive (5) Protein-calorie malnutrition, severe Impression: He meets criteria for severe protein calorie malnutrition. He is tolerating a normal diet. We will continue to administer PO multivitamin and thiamine. (6) Dehydration Impression: Patient presented with severe dehydration. This appears to be resolving after receiving IV fluids and PO intake, kidney function is improving but urine output is still low. Continue to receive IV fluids
--- NOTE | 2021-07-20 12:11 | PHARMACY PROGRESS NOTE ---
- Best Possible Medication History Admit Date and Time: 07/19/212140 Processed by: Pharmacy Medication History completed: Yes Patient Interview: Pt unable to participate Secondary Source(s): Physician records, Insurance records As the person ultimately responsible for medication therapy, providers are able to order a medication from an existing home medication list in [facility] via the "Reconcile Routine" prior to Confirmation of that medication by application support intern. Such practice is discouraged except when the physician, in their clinical judgment, deems that a medical need exists for a medication without regard to previous use.
[2021-07-20] MEDS ORDERED: SODIUM BICARBONATE 8.4% 50 MEQ/50 ML VIAL ONE (15:56)
[2021-07-20] MEDS: SODIUM BICARBONATE 100 MEQ in DEXTROSE 5% 1,000 ML IV SCH (15:57)
--- NOTE | 2021-07-20 16:21 | XRAY Report ---
PROCEDURE: Chest 1 View X-Ray INDICATIONS: weight loss, smoker TECHNIQUE: One view of the chest was acquired. COMPARISON: Chest x-ray 09/18/2016 FINDINGS: Surgical changes and devices: None. Lungs and pleura: No pneumothorax. Lungs are clear. Lungs are hyperinflated with flattening of the hemidiaphragms. Costophrenic angles are present. Mediastinum: Mediastinal contours appear normal. Heart size is normal. Bones and chest wall: No suspicious bony lesions. Overlying soft tissues appear unremarkable. IMPRESSION: Hyperinflation with costophrenic angle blunting and hemidiaphragm flattening most suggestive of COPD. No consolidations. Costophrenic angle blunting is likely manufacturers service representative of trace scarring versus min imal effusions. Reviewed by: Tyesha Delvalle MD on 07/20/2021 4:20 PM PST Approved by: Tyesha Delvalle MD on 07/20/2021 4:20 PM [facility] Station ID: [id number]
[2021-07-21] MEDS: SODIUM CHLORIDE FLUSH 0.9% 10 ML SYRINGE IVP SCH ×3 (02:33→18:45)
[2021-07-21] MEDS: SODIUM BICARBONATE 100 MEQ in DEXTROSE 5% 1,000 ML IV SCH ×2 (03:13→16:24)
[2021-07-21 05:41] LABS: BASOPHILS % (AUTO) 0.2 %; EOSINOPHILS # (AUTO) 0.1 10^3/uL (0.0-0.7); EOSINOPHILS % (AUTO) 1.1 %; HCT - HEMATOCRIT 29.3 % (42.0-52.0); HGB - HEMOGLOBIN 10.2 g/dL (14.0-18.0); LYMPHOCYTES # (AUTO) 0.5 10^3/uL (1.5-3.5); LYMPHOCYTES % (AUTO) 9.2 %; MEAN CORPUSCULAR HEMOGLOBIN 31.8 pg (27.0-31.0); MEAN CORPUSCULAR HGB CONC 34.8 g/dL (32.0-36.0); MEAN CORPUSCULAR VOLUME 91.3 fL (80.0-94.0); MEAN PLATELET VOLUME 10.5 fL (7.4-11.4); MONOCYTES # (AUTO) 0.8 10^3/uL (0.0-1.0); NEUTROPHILS % (AUTO) 75.1 %; PLT - PLATELET COUNT 230 10^3/uL (130-450); RED BLOOD COUNT 3.21 10^6/uL (4.70-6.10); RED CELL DISTRIBUTION WIDTH 15.9 % (12.0-15.0); WHITE BLOOD COUNT 5.4 x10^3/uL (4.8-10.8)
[2021-07-21 05:52] LABS: CALCIUM 8.3 mg/dL (8.5-10.3); CREATININE 1.1 mg/dL (0.6-1.2); PHOSPHORUS 2.8 mg/dL (2.5-4.6); POTASSIUM 4.3 mmol/L (3.5-5.0)
[2021-07-21] MEDS: THIAMINE 100 MG TABLET PO SCH (08:01)
[2021-07-21] MEDS: polyethylene glycoL 3350 17 GM PACKET PO SCH (08:01)
[2021-07-21] MEDS: MULTIVITAMIN W/MINERALS TABLET PO SCH (08:01)
[2021-07-21] MEDS: NICOTINE 14 MG PATCH TOP SCH (08:02)
[2021-07-21] MEDS ORDERED: IOVERSOL 320 100 ML VIAL IVP ONE ×2 (08:18→11:51)
[2021-07-21] MEDS ORDERED: IOPAMIDOL-300 50 ML VIAL ONE (08:20)
--- NOTE | 2021-07-21 08:44 | PROVIDER PROGRESS NOTE ---
Subjective - Prog Note Date Prog Note Date: 07/21/21 Prog Note Time: 11:00 - Subjective Pt reports feeling: Improved Subjective: Patient reports that he is feeling better today. He reports feeling a little short of breath and stressed out about being here but denies chest or abdominal pain. He says that he "just found out about this bullshit" and realized that he is in the hospital. He would like to go home. He says that his mom is walking around the halls looking for him. He does not know what city he is in or what month it is. He does not know how he ended up here. He reports the he had egg noodles for breakfast and they were very good. Current Medications - Current Medications Current Medications: Active Medications Acetaminophen (Acetaminophen 325 Mg Tablet) 650 mg PO Q4HR PRN PRN Reason: Pain 1 to 4 Last Admin: 07/20/21 06:58 Dose: 650 mg Sodium Bicarbonate 100 meq/ (Dextrose) 1,100 mls @ 100 mls/hr IV .Q11H [facility] Last Admin: 07/21/21 03:13 Dose: 100 mls/hr Multivitamins/Minerals (Multivitamin W/Minerals Tablet) 1 tab PO DAILYWM [facility] Last Admin: 07/21/21 08:01 Dose: 1 tab Nicotine (Nicotine 14 Mg Patch) 1 patch TOP DAILY [facility] Last Admin: 07/21/21 08:02 Dose: 1 patch Ondansetron HCl (Ondansetron Odt 4 Mg Tablet) 4 mg TL Q6HR PRN PRN Reason: Nausea / Vomiting Ondansetron HCl (Ondansetron 4 Mg/2 Ml Vial) 4 mg IVP Q6HR PRN PRN Reason: Nausea / Vomiting Polyethylene Glycol (Polyethylene Glycol 3350 17 Gm Packet) 17 gm PO DAILY [facility] Last Admin: 07/21/21 08:01 Dose: 17 gm Sodium Chloride (Sodium Chloride Flush 0.9% 10 Ml Syringe) 10 ml IVP PRN PRN PRN Reason: NEEDED PER PROVIDER ORDERS Sodium Chloride (Sodium Chloride Flush 0.9% 10 Ml Syringe) 10 ml IVP 0100,0900,1700 [facility] Last Admin: 07/21/21 08:02 Dose: Not Given Tamsulosin HCl (Tamsulosin 0.4 Mg Capsule) 0.4 mg PO HS [facility] Last Admin: 07/20/21 21:24 Dose: 0.4 mg Thiamine HCl (Thiamine 100 Mg Tablet) 100 mg PO DAILY [facility] Last Admin: 07/21/21 08:01 Dose: 100 mg No Known Home Medications 07/20/21 Objective - Vital Signs/Intake & Output Vital Signs: Vital Signs x48h Temp Pulse Resp BP BP Pulse Ox 07/21/21 07:51 36.4 C L 87 19 120/68 95 07/21/21 02:33 38.1 C H 07/21/21 01:19 36.3 C L 93 16 118/72 99 Intake & Output: Intake & Output 07/18/21 07/19/21 07/20/21 07/21/21 23:59 23:59 23:59 23:59 Intake Total 2257.70 3755.500 1100 Output Total 1550 375 250 Balance 707.70 3380.500 850 - Objective General Appearance: positive: Alert, Mild distress, Other (Cachectic, mildly short of breath male with severe atrophy who appears older than stated age. He glances down the humphries periodically.) Eyes Bilateral: positive: Normal inspection, PERRL, EOMI ENT: positive: ENT inspection nml, No signs of dehydration, Other (No teeth) Neck: positive: Nml inspection, No JVD, Trachea midline Respiratory: positive: Chest non-tender, Breath sounds nml. negative: Wheezes, Rales, Rhonchi Cardiovascular: positive: Regular rate & rhythm, No murmur, No gallop Peripheral Pulses: 2+ Radial (R), 2+ Radial (L), 2+ Dorsalis pedis (R), 2+ Dorsalis pedis (L) Abdomen: positive: Non-tender, Nml bowel sounds, No distention Skin: positive: Color nml, Warm, Dry, Other (Ecchymosis on bilateral upper extremities. He has a non-tender, firm mobile mass on his forhead, approx 2 cm. He also has an abraision on his left knee.). negative: Decubitus Extremities: positive: Pedal edema, Other (Severe atrophy of all extremities. 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 negative: Disoriented to person - Lab Results Fish Bones: 07/21/21 05:15 07/21/21 05:15 Other Labs: Lab Results x24hrs 07/21/21 07/21/21 Range/Units 05:15 05:15 WBC 5.4 (4.8-10.8) x10^3/uL RBC 3.21 L (4.70-6.10) 10^6/uL Hgb 10.2 L (14.0-18.0) g/dL Hct 29.3 L (42.0-52.0) % MCV 91.3 (80.0-94.0) fL MCH 31.8 H (27.0-31.0) pg MCHC 34.8 (32.0-36.0) g/dL RDW 15.9 H (12.0-15.0) % Plt Count 230 (130-450) 10^3/uL MPV 10.5 (7.4-11.4) fL Neut # (Auto) 4.0 (1.5-6.6) 10^3/uL Lymph # (Auto) 0.5 L (1.5-3.5) 10^3/uL [place] # (Auto) 0.8 (0.0-1.0) 10^3/uL Eos # (Auto) 0.1 (0.0-0.7) 10^3/uL Baso # (Auto) 0.0 (0.0-0.1) 10^3/uL Absolute Nucleated RBC 0.00 x10^3/uL Nucleated RBC % 0.0 /100WBC Sodium 134 L (135-145) mmol/L Potassium 4.3 (3.5-5.0) mmol/L Chloride 100 L (101-111) mmol/L Carbon Dioxide 26 (21-32) mmol/L Anion Gap 8.0 (6-13) BUN 48 H (6-20) mg/dL Creatinine 1.1 (0.6-1.2) mg/dL Estimated GFR (MDRD) 67 L (>89) Glucose 107 H (70-100) mg/dL Calcium 8.3 L (8.5-10.3) mg/dL Phosphorus 2.8 (2.5-4.6) mg/dL Magnesium 2.0 (1.7-2.8) mg/dL - Diagnostic Imaging Diagnostic Imaging Results: positive: See rad report ABX Reporting Has patient been on IV antibiotics over the past 48 hours?: No Sepsis Event Note (H) - Evaluation Current Stage of Sepsis: Ruled out Assessment/Plan - Problem List (1) Altered mental status Impression: He continues to be confused today with poor short term memory, oriented to self only. He knows that he is in the hospital but does not know the city. He is disoriented to time and event. He also seems to be slightly paranoid today. He has a family history of mental health issues and substance abuse. His sister reports that he has been living in a trailer in the [facility] eating sardines and drinking alcohol. His altered mental status may be secondary to urinary retention, infection, alcoholism, dementia or an underlying mental health disorder. He has generalized weakness but no focal deficits to suggest a stroke. His ammonia, B12 and folate levels were normal. He has no significant el ectrolyte derangements. Toxicology screen unremarkable. He is afebrile, WBC normal and UA shows no signs of infection. He currently has a spangler and we will continue to hydrate him with IV fluids and monitor I/Os. He is also receiving tamsulosin for urinary retention. Continue to administer multivitamin with thiamine Consider psych consult. Qualifiers: Altered mental status type: disorientation Qualified Code(s): R41.0 - Disorientation, unspecified (2) Failure to thrive Impression: Etiology of this is not clear but concern is for underlying depression or malignancy. He is non-ambulatory with severe weakness and atrophy His mother reports that he has been having issues with his hips so X-ray obtained, no acute process. Renal function has improved so CT of the abdomen/pelvis today to evaluate for occult malignancy, none found. Continue to encourage oral intake. We will continue to work with the patient, his family and social work today to come up with a plan for care following this admission. SNF recommended but patient is refusing despite being unable to care for self. Hospice consult today. Qualifiers: Failure to thrive age range: in adult Qualified Code(s): R62.7 - Adult failure to thrive (3) Acute kidney injury Impression: This is likely secondary to decreased oral intake and hypovolemia. His renal function is improving today after D5 and sodium bicarbonate administration yesterday, BUN 48, Cr 1.1, GFR 67. This is adequate to receive contrast dye for a CT study today. He is still having minimal urine output in his spangler. Continue to administer sodium bicarbonate 100 meq in D5 today Continue to monitor BMP and I/Os (4) Ketoacidosis Impression: He initially presented with an elevated anion gap acidosis with positive ketones, likely due to starvation ketoacidosis. This has resolved, anion gap 8.0 today. He is tolerating a normal diet. (5) Protein-calorie malnutrition, severe Impression: He meets criteria for severe protein calorie malnutrition. He is tolerating a normal diet. We will continue to administer PO multivitamin and thiamine. (6) Dehydration Impression: Resolved, kidney function improving although spangler output is still minimal, patient has received IV fluids and is tolerating a normal PO diet. (7) COPD (chronic obstructive pulmonary disease) Impression: Patient has a previous diagnosis of COPD. He is not on oxygen or medications. His chest x-ray shows evidence of emphysema. O2 saturation 95% on room air. He is mildly short of breath but does not appear to be in an acute exacerbation. Qualifiers: COPD type: emphysema
--- NOTE | 2021-07-21 09:39 | XRAY Report ---
PROCEDURE: Hips 2V BILAT INDICATIONS: bilateral hip pain, can't walk TECHNIQUE: AP view of the pelvis. Lateral views of the both hips were acquired. COMPARISON: August 22, 2013 FINDINGS: BONES/JOINTS: No acute, displaced fracture. No widening of the pubic symphysis. The sacroiliac joints are symmetric. The femoral heads are normal ly seated within the acetabulum. SOFT TISSUES: No focal abnormality. A urinary bladder catheter projects over the central pelvis. IMPRESSION: 1.No acute osseous abnormality. If the patient is unable to bear weight, consider CT imaging. Reviewed by: Judson Benitez MD on 07/21/2021 9:38 AM [facility] Approved by: Judson Benitez MD on 07/21/2021 9:38 AM [facility] Station ID: [id number]
[2021-07-21] MEDS ORDERED: IOPAMIDOL-300 50 ML VIAL PO ONE (11:51)
--- NOTE | 2021-07-21 12:33 | CT Report ---
PROCEDURE: Abdomen/Pelvis W INDICATIONS: abnormal weight loss CONTRAST: IV CONTRAST: Optiray 320 ml: 100 PO CONTRAST: Isovue 300 ml50 TECHNIQUE: After the administration of oral and intravenous contrast, 5 mm thick sections acquired from the diap hragms to the symphysis. 5 mm thick coronal and sagittal reformats were acquired. For radiation dos e reduction, the following was used: automated exposure control, adjustment of mA and/or kV accordin g to patient size. COMPARISON: None. FINDINGS: Image quality: Excellent. ABDOMEN: Lung bases: Emphysematous changes are seen bilaterally. Small bilateral pleural effusions with atelec tasis of the adjacent lung bases. Heart size is normal. Solid organs: Focal fatty infiltration is seen adjacent to the falciform ligament. A low-attenuation in the right hepatic lobe is most likely a cyst. Numerous small calcified gallstones are seen in the dependent portions of the gallbladder. No acute pericholecystic inflammatory changes. Biliary system is non dilated. Pancreas enhances normally. Spleen appears mildly small. No adrenal nodules. Kidn eys demonstrate normal size and enhancement, without hydronephrosis. Peritoneum and bowel: Bowel loops demonstrate normal wall thickness and caliber. Mild stool burden i s seen throughout the colon. A small amount of ascites is seen throughout the abdomen and pelvis. No pneumoperitoneum. Nodes and vessels: No retroperitoneal or mesenteric adenopathy by size criteria. Aorta and inferior vena cava are normal in size. Moderate aortic atherosclerotic calcifications. Miscellaneous: No ventral hernias. Diffuse soft tissue anasarca is seen. PELVIS: Genitourinary: The bladder is compressed by Hopper catheter and contains air. The bladder bledsoe appear diffusely thickened, which may be partially related to underdistention, but chronic bilateral obstru ction or cystitis could appear similarly. Miscellaneous: No inguinal hernias or adenopathy. Bones: No suspicious bony lesions. No vertebral body compression fractures. Chronic healed fractur e of the left inferior pubic ramus and left superior pubic ramus. IMPRESSION: 1.Cholelithiasis without signs of acute cholecystitis. 2.Bladder is decompressed by a Hopper catheter. Diffuse bladder wall thickening may be secondary to un derdistention versus possibly chronic bladder outlet obstruction or cystitis. 3.Signs of volume overload including diffuse soft tissue anasarca, small bilateral pleural effusions, and a small volume of ascites throughout the abdomen and pelvis. 4.Emphysematous changes in the included lung bases. Reviewed by: Torey Currie MD on 07/21/2021 12:32 PM PST Approved by: Torey Currie MD on 07/21/2021 12:32 PM PST Station ID: [id number]
[2021-07-21] MEDS: IPRATROPIUM/ALBUTEROL 3 ML NEB INH SCH (19:09)
[2021-07-21] MEDS: TAMSULOSIN 0.4 MG CAPSULE PO SCH (20:39)
[2021-07-22] MEDS: SODIUM BICARBONATE 100 MEQ in DEXTROSE 5% 1,000 ML IV SCH (00:12)
[2021-07-22] MEDS: SODIUM CHLORIDE FLUSH 0.9% 10 ML SYRINGE IVP SCH ×3 (00:25→20:14)
[2021-07-22 05:43] LABS: BASOPHILS % (AUTO) 0.2 %; EOSINOPHILS # (AUTO) 0.1 10^3/uL (0.0-0.7); EOSINOPHILS % (AUTO) 1.2 %; HCT - HEMATOCRIT 30.1 % (42.0-52.0); HGB - HEMOGLOBIN 10.5 g/dL (14.0-18.0); LYMPHOCYTES # (AUTO) 0.8 10^3/uL (1.5-3.5); LYMPHOCYTES % (AUTO) 16.3 %; MEAN CORPUSCULAR HEMOGLOBIN 31.3 pg (27.0-31.0); MEAN CORPUSCULAR HGB CONC 34.9 g/dL (32.0-36.0); MEAN CORPUSCULAR VOLUME 89.6 fL (80.0-94.0); MEAN PLATELET VOLUME 10.6 fL (7.4-11.4); MONOCYTES # (AUTO) 0.9 10^3/uL (0.0-1.0); MONOCYTES % (AUTO) 17.5 %; NEUTROPHILS # (AUTO) 3.3 10^3/uL (1.5-6.6); NEUTROPHILS % (AUTO) 64.6 %; PLT - PLATELET COUNT 240 10^3/uL (130-450); RED BLOOD COUNT 3.36 10^6/uL (4.70-6.10); RED CELL DISTRIBUTION WIDTH 15.9 % (12.0-15.0); WHITE BLOOD COUNT 5.1 x10^3/uL (4.8-10.8)
[2021-07-22 05:56] LABS: CALCIUM 8.5 mg/dL (8.5-10.3); CREATININE 0.7 mg/dL (0.6-1.2); MAGNESIUM 1.6 mg/dL (1.7-2.8); PHOSPHORUS 2.5 mg/dL (2.5-4.6)
[2021-07-22] MEDS: DOCUSATE SODIUM 250 MG CAPSULE PO SCH (08:26)
[2021-07-22] MEDS: SENNA 8.6 MG TABLET PO SCH (08:26)
[2021-07-22] MEDS: polyethylene glycoL 3350 17 GM PACKET PO SCH (08:26)
[2021-07-22] MEDS: THIAMINE 100 MG TABLET PO SCH (08:26)
[2021-07-22] MEDS: MULTIVITAMIN W/MINERALS TABLET PO SCH (08:26)
[2021-07-22] MEDS: NICOTINE 14 MG PATCH TOP SCH (08:26)
[2021-07-22] MEDS: IPRATROPIUM/ALBUTEROL 3 ML NEB INH SCH ×4 (08:30→19:38)
[2021-07-22] MEDS: ACETAMINOPHEN 325 MG TABLET PO PRN (13:32)
[2021-07-22] MEDS: MAGNESIUM OXIDE 400 MG TABLET PO SCH (13:33)
--- NOTE | 2021-07-22 13:56 | PROVIDER PROGRESS NOTE ---
Subjective - Prog Note Date Prog Note Date: 07/22/21 Prog Note Time: 13:54 - Subjective Pt reports feeling: Improved Subjective: He is cheerful, alert. Knows that he is in a healthcare facility but not which one. Eating 100% of his meals. He is cooperating with physical therapy but is profoundly weak. He does not have the truncal stability to sit up on his own, transfer his legs to the side of the bed or to stand. But he is working with PT and getting better. He does not have any insight and stoutly maintains that he was getting up all night long to urinate. Nursing confirms that he does not have the strength to do that. He denies any abdominal pain, cough, and the shortness of breath he had yesterday has resolved. I started him on DuoNeb. Current Medications - Current Medications Current Medications: Active Medications Acetaminophen (Acetaminophen 325 Mg Tablet) 650 mg PO Q4HR PRN PRN Reason: Pain 1 to 4 Last Admin: 07/22/21 13:32 Dose: 650 mg Albuterol/Ipratropium (Ipratropium/Albuterol 3 Ml Neb) 3 ml INH RTQID [facility] Last Admin: 07/22/21 13:12 Dose: 3 ml Docusate Sodium (Docusate Sodium 250 Mg Capsule) 250 - 500 mg PO DAILY [facility] Last Admin: 07/22/21 08:26 Dose: 250 mg Magnesium Oxide (Magnesium Oxide 400 Mg Tablet) 400 mg PO DAILYWM [facility] Last Admin: 07/22/21 13:33 Dose: 400 mg Multivitamins/Minerals (Multivitamin W/Minerals Tablet) 1 tab PO DAILYWM [facility] Last Admin: 07/22/21 08:26 Dose: 1 tab Nicotine (Nicotine 14 Mg Patch) 1 patch TOP DAILY [facility] Last Admin: 07/22/21 08:26 Dose: 1 patch Ondansetron HCl (Ondansetron Odt 4 Mg Tablet) 4 mg TL Q6HR PRN PRN Reason: Nausea / Vomiting Ondansetron HCl (Ondansetron 4 Mg/2 Ml Vial) 4 mg IVP Q6HR PRN PRN Reason: Nausea / Vomiting Polyethylene Glycol (Polyethylene Glycol 3350 17 Gm Packet) 17 gm PO DAILY [facility] Last Admin: 07/22/21 08:26 Dose: 17 gm Senna (Senna 8.6 Mg Tablet) 8.6 - 17.2 mg PO DAILY [facility] Last Admin: 07/22/21 08:26 Dose: 8.6 mg Sodium Chloride (Sodium Chloride Flush 0.9% 10 Ml Syringe) 10 ml IVP PRN PRN PRN Reason: NEEDED PER PROVIDER ORDERS Sodium Chloride (Sodium Chloride Flush 0.9% 10 Ml Syringe) 10 ml IVP 0100,0900,1700 [facility] Last Admin: 07/22/21 08:27 Dose: Not Given Tamsulosin HCl (Tamsulosin 0.4 Mg Capsule) 0.4 mg PO HS [facility] Last Admin: 07/21/21 20:39 Dose: 0.4 mg Thiamine HCl (Thiamine 100 Mg Tablet) 100 mg PO DAILY [facility] Last Admin: 07/22/21 08:26 Dose: 100 mg No Known Home Medications 07/20/21 Objective - Vital Signs/Intake & Output Reviewed Vital Signs: Yes Vital Signs: Vital Signs x48h Temp Pulse Pulse Resp BP Pulse Ox 07/22/21 13:00 112 H 18 07/22/21 11:29 121 H 92 07/22/21 08:30 102 H 18 07/22/21 07:45 36.5 C 90 20 145/82 H 97 Intake & Output: Intake & Output 07/19/21 07/20/21 07/21/21 07/22/21 23:59 23:59 23:59 23:59 Intake Total 2257.70 3755.500 3370.000 3001.66 Output Total 3042 832 3155 1125 Balance 707.70 3380.500 7824.037 5578.66 - Objective General Appearance: positive: No acute distress, Alert, Other (43 kg male who is 5 foot 9 inches tall, long torres roman, lanky long torres hair in a male pattern baldness patient with cachexia) Eyes Bilateral: positive: PERRL, EOMI ENT: positive: Other (No teeth. No dentures. He is eating a mechanical soft diet) Neck: positive: No JVD. negative: Stiff neck Respiratory: positive: No respiratory distress, Other (Yesterday he was mildly tachypneic with the effort speaking during the exam, today he is laughing spontaneously without shortness of breath and speaking normally without shortness of breath). negative: Wheezes, Rales, Rhonchi Cardiovascular: positive: Regular rate & rhythm, Systolic murmur. negative: Gallop/S4, Friction rub Abdomen: positive: Non-tender, No organomegaly, Nml bowel sounds, No distention Skin: positive: Warm, Dry Extremities: positive: Full ROM, No pedal edema, Other (Yesterday his left heel pad was quite tender. Lifting the heel off the bed relieves the pain. There is no skin breakdown. Today he says that the pain is better but he cannot say why) Neurologic/Psychiatric: positive: CN's nml (2-12), Disoriented to place (At times), Disoriented to time (all the time). negative: Motor nml (profound bilateral leg weakness. he can move his legs on the bed but can't lift them.) - Lab Results Fish Bones: 07/22/21 04:48 07/22/21 04:48 Other Labs: Lab Results x24hrs 07/22/21 07/22/21 Range/Units 04:48 04:48 WBC 5.1 (4.8-10.8) x10^3/uL RBC 3.36 L (4.70-6.10) 10^6/uL Hgb 10.5 L (14.0-18.0) g/dL Hct 30.1 L (42.0-52.0) % MCV 89.6 (80.0-94.0) fL MCH 31.3 H (27.0-31.0) pg MCHC 34.9 (32.0-36.0) g/dL RDW 15.9 H (12.0-15.0) % Plt Count 240 (130-450) 10^3/uL MPV 10.6 (7.4-11.4) fL Neut # (Auto) 3.3 (1.5-6.6) 10^3/uL Lymph # (Auto) 0.8 L (1.5-3.5) 10^3/uL [place] # (Auto) 0.9 (0.0-1.0) 10^3/uL Eos # (Auto) 0.1 (0.0-0.7) 10^3/uL Baso # (Auto) 0.0 (0.0-0.1) 10^3/uL Absolute Nucleated RBC 0.00 x10^3/uL Nucleated RBC % 0.0 /100WBC Sodium 133 L (135-145) mmol/L Potassium 4.0 (3.5-5.0) mmol/L Chloride 93 L (101-111) mmol/L Carbon Dioxide 31 (21-32) mmol/L Anion Gap 9.0 (6-13) BUN 33 H (6-20) mg/dL Creatinine 0.7 (0.6-1.2) mg/dL Estimated GFR (MDRD) 112 (>89) Glucose 108 H (70-100) mg/dL Calcium 8.5 (8.5-10.3) mg/dL Phosphorus 2.5 (2.5-4.6) mg/dL Magnesium 1.6 L (1.7-2.8) mg/dL ABX Reporting Has patient been on IV antibiotics over the past 48 hours?: No Sepsis Event Note (H) - Evaluation Current Stage of Sepsis: Ruled out Assessment/Plan - Problem List (1) Failure to thrive Impression: Impression: Etiology of this is not clear but concern was for underlying depression or malignancy. We have found no cancer, only COPD with normal RA sats and responds to simple duoneb. He did have bladder retention requiring spangler and CT confirms chronic bladder changes from retention. He continues to be non-ambulatory with severe weakness and atrophy on exam. Mentally he is slightly paranoid and feels his family is conspiring against him, even his mom. He wants to be left alone and wants to at home at the end but has no terminal illness that would cause soon. His mother reports that he has been having issues with his hips so X-ray obtained, no acute process. Renal function has improved so CT of the abdomen/pelvis to evaluate for occult malignancy done and none found. 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 Plan: Continue to encourage oral intake. We will continue to work with the patient, his family and social work today to come up with a plan for care following this admission. SNF recommended but patient is refusing despite being unable to care for self. He is wanting to work w PT just not at a SNF. We are meeting with his mom and sister Nolvia tomorrow to go over future plan for him. assistant center director reviewed his case and feels he is not a candidate for hospice right now. Maybe start with Palliative care and transition when needed. He is medically stable now as of today and we need to move forward with the correct discharge disposition for him. Qualifiers: Failure to thrive age range: in adult Qualified Code(s): R62.7 - Adult failure to thrive (3) Acute kidney injury resolved. Impression: This is likely secondary to decreased oral intake and hypovolemia. His renal function is improving after D5 and sodium bicarbonate administration to help prevent dye related RADHA Laboratory Tests 07/20/21 07/21/21 07/22/21 05:10 05:15 04:48 Creatinine 1.6 H 1.1 0.7 IVF stopped last night. Continue to monitor BMP and I/Os (4) Ketoacidosis resolved. Impression: He initially presented with an elevated anion gap acidosis with positive keton es, likely due to starvation ketoacidosis. This has resolved, anion gap 8.0 today. He is tolerating a normal diet. (5) Protein-calorie malnutrition, severe Impression: He meets criteria for severe protein calorie malnutrition. He is tolerating a normal diet. We will continue to administer PO multivitamin and thiamine. He is doing well here in that eating 100% of food. Social work trying to tease out why he wasn't eating at home. Lack of access to food? Did RADHA cause anorexia? Alcoholism? (6) Dehydration resolved Impression: Resolved, kidney function improving although spangler output is still minimal, patient has received IV fluids and is tolerating a normal PO diet. (7) COPD (chronic obstructive pulmonary disease) Impression: Patient has a previous diagnosis of COPD. He is not on oxygen or medications. His chest x-ray shows evidence of emphysema. O2 saturation 95% on room air. He is mildly short of breath but does not appear to be in an acute exacerbation. Duoneb started yesterday with good results. Less wheezing and less tachypnea today. Qualifiers: COPD type: emphysema (8) Cognitive deficit He remains mildly confused with poor short term memory, oriented to self only. Occasionally now knows he's in the hospital which makes him mad. he doesn't want to be here but then he forgets and he's fine for hours. He has a family history of mental health issues and substance abuse. His sister reports that he has been living in a trailer that does not have running water, in the [place], eating sardines and drinking alcohol. He walks about 25 feet to a [facility]. His altered mental status may be secondary to urinary retention, infection, alcoholism, dementia or an underlying mental health disorder. He has generalized weakness but no focal deficits to suggest a stroke. His ammonia, B12 and folate levels were normal. He has no significant electrolyte derangements. Toxicology screen unremarkable. He is afebrile, WBC normal and UA shows no signs of infection. On exam, very weak. he can't sit up on his own. Will as for cognitive eval with speech therapy since occupational therapy is not available right now. Qualifiers: Altered mental status type: disorientation Qualified Code(s): R41.0 - Disorientation, unspecified Qualifiers: Qualified Code(s): R62.7 - Adult failure to thrive
[2021-07-22] MEDS: TAMSULOSIN 0.4 MG CAPSULE PO SCH (20:14)
[2021-07-23] MEDS: SODIUM CHLORIDE FLUSH 0.9% 10 ML SYRINGE IVP SCH ×4 (01:15→23:52)
[2021-07-23 05:20] LABS: BASOPHILS % (AUTO) 0.4 %; EOSINOPHILS % (AUTO) 0.8 %; HCT - HEMATOCRIT 30.1 % (42.0-52.0); HGB - HEMOGLOBIN 10.5 g/dL (14.0-18.0); LYMPHOCYTES # (AUTO) 0.9 10^3/uL (1.5-3.5); LYMPHOCYTES % (AUTO) 18.1 %; MEAN CORPUSCULAR HEMOGLOBIN 31.9 pg (27.0-31.0); MEAN CORPUSCULAR HGB CONC 34.9 g/dL (32.0-36.0); MEAN CORPUSCULAR VOLUME 91.5 fL (80.0-94.0); MEAN PLATELET VOLUME 10.6 fL (7.4-11.4); MONOCYTES # (AUTO) 1.1 10^3/uL (0.0-1.0); MONOCYTES % (AUTO) 21.2 %; NEUTROPHILS % (AUTO) 59.1 %; PLT - PLATELET COUNT 232 10^3/uL (130-450); RED BLOOD COUNT 3.29 10^6/uL (4.70-6.10); WHITE BLOOD COUNT 5.1 x10^3/uL (4.8-10.8)
[2021-07-23 05:41] LABS: CALCIUM 8.8 mg/dL (8.5-10.3); CREATININE 0.8 mg/dL (0.6-1.2); MAGNESIUM 1.6 mg/dL (1.7-2.8); PHOSPHORUS 2.5 mg/dL (2.5-4.6); POTASSIUM 3.9 mmol/L (3.5-5.0)
[2021-07-23] MEDS: IPRATROPIUM/ALBUTEROL 3 ML NEB INH SCH ×3 (07:31→15:14)
[2021-07-23] MEDS: DOCUSATE SODIUM 250 MG CAPSULE PO SCH (08:01)
[2021-07-23] MEDS: MULTIVITAMIN W/MINERALS TABLET PO SCH (08:01)
[2021-07-23] MEDS: NICOTINE 14 MG PATCH TOP SCH (08:01)
[2021-07-23] MEDS: SENNA 8.6 MG TABLET PO SCH (08:01)
[2021-07-23] MEDS: polyethylene glycoL 3350 17 GM PACKET PO SCH (08:01)
[2021-07-23] MEDS: THIAMINE 100 MG TABLET PO SCH (08:02)
[2021-07-23] MEDS: MAGNESIUM OXIDE 400 MG TABLET PO SCH (08:02)
--- NOTE | 2021-07-23 08:46 | PROVIDER PROGRESS NOTE ---
Subjective - Prog Note Date Prog Note Date: 07/23/21 Prog Note Time: 17:00 - Subjective Pt reports feeling: Improved (Feeling stronger), Worse (More SOB this afternoon) Subjective: Around noon, Mr. Monroy stated he was feeling better. At 16:30 he stated he was feeling short of breath and said, "this happens now and then. Let me catch my breath a minute." He described it as not being able to get enough air. He is also achy all over. When asked about specific sites he said, "you name it, I got it," but denies headache. He "ate pretty good" today. He had a bowel movement today that he described as hard and painful. Nursing staff affirmed he has had two very small, hard BMs today, with stool visible in the vault. He denies cu rrent abdominal pain. He does not know where he is and could not name the location of his home. He does not know the current year. Current Medications - Current Medications Current Medications: Active Medications Acetaminophen (Acetaminophen 325 Mg Tablet) 650 mg PO Q4HR PRN PRN Reason: Pain 1 to 4 Last Admin: 07/22/21 13:32 Dose: 650 mg Albuterol (Albuterol Neb 2.5 Mg/3 Ml) 2.5 mg INH RTQ4H PRN PRN Reason: Wheezing Albuterol/Ipratropium (Ipratropium/Albuterol 3 Ml Neb) 3 ml INH RTQID [facility] Last Admin: 07/23/21 15:14 Dose: Not Given Azithromycin (Azithromycin 250 Mg Tablet) 250 mg PO DAILY [facility] Docusate Sodium (Docusate Sodium 250 Mg Capsule) 250 - 500 mg PO DAILY [facility] Last Admin: 07/23/21 08:01 Dose: 250 mg Guaifenesin (Guaifenesin 600 Mg Tablet) 600 mg PO BID [facility] Magnesium Oxide (Magnesium Oxide 400 Mg Tablet) 400 mg PO DAILYWM [facility] Last Admin: 07/23/21 08:02 Dose: 400 mg Methylprednisolone (Methylprednisolone 4 Mg Tablet) 20 mg PO ONCE ONE Stop: 07/24/21 12:01 Methylprednisolone (Methylprednisolone 4 Mg Tablet) 16 mg PO ONCE ONE Stop: 07/25/21 09:01 Methylprednisolone (Methylprednisolone 4 Mg Tablet) 12 mg PO ONCE ONE Stop: 07/26/21 08:01 Methylprednisolone (Methylprednisolone 4 Mg Tablet) 8 mg PO ONCE ONE Stop: 07/27/21 08:01 Methylprednisolone (Methylprednisolone 4 Mg Tablet) 4 mg PO ONCE ONE Stop: 07/28/21 08:01 Multivitamins/Minerals (Multivitamin W/Minerals Tablet) 1 tab PO DAILYWM [facility] Last Admin: 07/23/21 08:01 Dose: 1 tab Nicotine (Nicotine 14 Mg Patch) 1 patch TOP DAILY [facility] Last Admin: 07/23/21 08:01 Dose: 1 patch Ondansetron HCl (Ondansetron Odt 4 Mg Tablet) 4 mg TL Q6HR PRN PRN Reason: Nausea / Vomiting Ondansetron HCl (Ondansetron 4 Mg/2 Ml Vial) 4 mg IVP Q6HR PRN PRN Reason: Nausea / Vomiting Polyethylene Glycol (Polyethylene Glycol 3350 17 Gm Packet) 17 gm PO DAILY [facility] Last Admin: 07/23/21 08:01 Dose: 17 gm Senna (Senna 8.6 Mg Tablet) 8.6 - 17.2 mg PO DAILY [facility] Last Admin: 07/23/21 08:01 Dose: 8.6 mg Sodium Chloride (Sodium Chloride Flush 0.9% 10 Ml Syringe) 10 ml IVP PRN PRN PRN Reason: NEEDED PER PROVIDER ORDERS Sodium Chloride (Sodium Chloride Flush 0.9% 10 Ml Syringe) 10 ml IVP 0100,0900 ,1700 [facility] Last Admin: 07/23/21 17:17 Dose: 10 ml Tamsulosin HCl (Tamsulosin 0.4 Mg Capsule) 0.4 mg PO HS [facility] Last Admin: 07/22/21 20:14 Dose: 0.4 mg Thiamine HCl (Thiamine 100 Mg Tablet) 100 mg PO DAILY [facility] Last Admin: 07/23/21 08:02 Dose: 100 mg No Known Home Medications 07/20/21 Objective - Vital Signs/Intake & Output Reviewed Vital Signs: Yes Vital Signs: Vital Signs x48h Temp Pulse Pulse Resp BP Pulse Ox 07/23/21 07:47 36.4 C L 100 18 124/81 H 94 07/23/21 07:32 101 H 14 Intake & Output: Intake & Output 07/20/21 07/21/21 07/22/21 07/23/21 23:59 23:59 23:59 23:59 Intake Total 3755.500 3370.000 3521.66 730 Output Total 375 6121 7803 8930 Balance 3380.500 7803.951 9603.66 -345 - Objective General Appearance: positive: Mild distress, Other (thin cachectic white male lo oks much older than stated age.) Eyes Bilateral: positive: Normal inspection, PERRL, EOMI ENT: positive: Other (edentulous) Neck: positive: No JVD, Trachea midline. negative: Stiff neck Respiratory: positive: Rhonchi, Other (Increased work of breathing. Breath sounds diminished throughout on inspiration. Deep rattling on expiration throughout.). negative: Wheezes, Rales Cardiovascular: positive: Regular rate & rhythm, No murmur, No gallop Peripheral Pulses: 2+ Radial (R), 2+ Radial (L) Abdomen: positive: Non-tender, No organomegaly, Nml bowel sounds, No distention Skin: positive: Color nml, No rash, Warm, Dry, Other (Small, painless, non- erythematous lump on forehead.) Extremities: positive: No pedal edema Neurologic/Psychiatric: positive: CN's nml (2-12) (Grossly), Mood/affect nml, Disoriented to place, Disoriented to time, Weakness (Unable to stand without assistance.). negative: Facial droop, Slurred/abnml speech - Lab Results Fish Bones: 07/23/21 04:32 07/23/21 04:32 Other Labs: Lab Results x24hrs 07/23/21 07/23/21 Range/Units 04:32 04:32 WBC 5.1 (4.8-10.8) x10^3/uL RBC 3.29 L (4.70-6.10) 10^6/uL Hgb 10.5 L (14.0-18.0) g/dL Hct 30.1 L (42.0-52.0) % MCV 91.5 (80.0-94.0) fL MCH 31.9 H (27.0-31.0) pg MCHC 34.9 (32.0-36.0) g/dL RDW 16.0 H (12.0-15.0) % Plt Count 232 (130-450) 10^3/uL MPV 10.6 (7.4-11.4) fL Neut # (Auto) 3.0 (1.5-6.6) 10^3/uL Lymph # (Auto) 0.9 L (1.5-3.5) 10^3/uL [place] # (Auto) 1.1 H (0.0-1.0) 10^3/uL Eos # (Auto) 0.0 (0.0-0.7) 10^3/uL Baso # (Auto) 0.0 (0.0-0.1) 10^3/uL Absolute Nucleated RBC 0.00 x10^3/uL Nucleated RBC % 0.0 /100WBC Sodium 134 L (135-145) mmol/L Potassium 3.9 (3.5-5.0) mmol/L Chloride 93 L (101-111) mmol/L Carbon Dioxide 33 H (21-32) mmol/L Anion Gap 8.0 (6-13) BUN 29 H (6-20) mg/dL Creatinine 0.8 (0.6-1.2) mg/dL Estimated GFR (MDRD) 96 (>89) Glucose 100 (70-100) mg/dL Calcium 8.8 (8.5-10.3) mg/dL Phosphorus 2.5 (2.5-4.6) mg/dL Magnesium 1.6 L (1.7-2.8) mg/dL Sepsis Event Note (H) - Evaluation Current Stage of Sepsis: Ruled out Assessment/Plan - Problem List (1) Failure to thrive Impression: Plan: Mother and sister visited today and spoke with patient and provider about Mr. Monroy's wishes and ultimately signed a POLST form stating patient is DNR with comfort care only. Patient is amenable to rehabbing at a SNF to regain strength, which is being handled by social work. Qualifiers: Failure to thrive age range: in adult Qualified Code(s): R62.7 - Adult failure to thrive Qualifiers: Failure to thrive age range: in adult Qualified Code(s): R62.7 - Adult failure to thrive (2) COPD (chronic obstructive pulmonary disease) Impression: He experienced an exacerbation for a couple hours today, with diminished breath sounds and diffuse rhonchi. Refused nebulizer treatment and SOB resolved. Duonebs and albuterol ordered, along with medrol dose pack and azithromycin. Will continue to monitor and give nebs as tolerated. Qualifiers: COPD type: emphysema Emphysema type: unspecified Qualified Code(s): J43.9 - Emphysema, unspecified (3) Altered mental status Impression: He is still very confused, unable to give details about where he lives, what the current year is, and other details about his current admission. He does not remember meeting me prior to today. 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 This may be his baseline. Qualifiers: Altered mental status type: disorientation Qualified Code(s): R41.0 - Disorientation, unspecified (4) Acute kidney injury Impression: resolved. Impression: This is likely secondary to decreased oral intake and hypovolemia. His renal function is improving after D5 and sodium bicarbonate administration to help prevent dye related RADHA Laboratory Tests 07/20/21 07/21/21 07/22/21 07/23/21 05:10 05:15 04:48 Creatinine 1.6 H 1.1 0.7 0.8 IVF stopped last night. Continue to monitor BMP and I/Os (5) Protein-calorie malnutrition, severe Impression: Impression: He meets criteria for severe protein calorie malnutrition. He is tolerating a normal diet. We will continue to administer PO multivitamin and thiamine. He is doing well here in that eating 100% of food. Social work trying to tease out why he wasn't eating at home. Lack of access to food? Did RADHA cause anorexia? Alcoholism? (6) Dehydration Impression: resolved (7) Ketoacidosis Impression: resolved
--- NOTE | 2021-07-23 13:23 | PROVIDER PROGRESS NOTE ---
Subjective - Prog Note Date Prog Note Date: 07/23/21 Prog Note Time: 13:20 - Subjective Pt reports feeling: Improved Objective - Vital Signs/Intake & Output Vital Signs: Vital Signs x48h Temp Pulse Pulse Resp BP Pulse Ox 07/23/21 11:20 114 H 18 07/23/21 07:47 36.4 C L 100 18 124/81 H 94 07/23/21 07:32 101 H 14 Intake & Output: Intake & Output 07/20/21 07/21/21 07/22/21 07/23/21 23:59 23:59 23:59 23:59 Intake Total 3755.500 3370.000 3521.66 730 Output Total 375 1375 2175 1075 Balance 3380.500 6558.516 5865.66 -345 - Lab Results Fish Bones: 07/23/21 04:32 07/23/21 04:32 Other Labs: Lab Results x24hrs 07/23/21 07/23/21 Range/Units 04:32 04:32 WBC 5.1 (4.8-10.8) x10^3/uL RBC 3.29 L (4.70-6.10) 10^6/uL Hgb 10.5 L (14.0-18.0) g/dL Hct 30.1 L (42.0-52.0) % MCV 91.5 (80.0-94.0) fL MCH 31.9 H (27.0-31.0) pg MCHC 34.9 (32.0-36.0) g/dL RDW 16.0 H (12.0-15.0) % Plt Count 232 (130-450) 10^3/uL MPV 10.6 (7.4-11.4) fL Neut # (Auto) 3.0 (1.5-6.6) 10^3/uL Lymph # (Auto) 0.9 L (1.5-3.5) 10^3/uL [place] # (Auto) 1.1 H (0.0-1.0) 10^3/uL Eos # (Auto) 0.0 (0.0-0.7) 10^3/uL Baso # (Auto) 0.0 (0.0-0.1) 10^3/uL Absolute Nucleated RBC 0.00 x10^3/uL Nucleated RBC % 0.0 /100WBC Sodium 134 L (135-145) mmol/L Potassium 3.9 (3.5-5.0) mmol/L Chloride 93 L (101-111) mmol/L Carbon Dioxide 33 H (21-32) mmol/L Anion Gap 8.0 (6-13) BUN 29 H (6-20) mg/dL Creatinine 0.8 (0.6-1.2) mg/dL Estimated GFR (MDRD) 96 (>89) Glucose 100 (70-100) mg/dL Calcium 8.8 (8.5-10.3) mg/dL Phosphorus 2.5 (2.5-4.6) mg/dL Magnesium 1.6 L (1.7-2.8) mg/dL Sepsis Event Note (H) - Evaluation Current Stage of Sepsis: Ruled out Assessment/Plan - Problem List (1) Failure to thrive Qualifiers: Qualified Code(s): R62.7 - Adult failure to thrive
[2021-07-23] MEDS ORDERED: ALBUTEROL NEB 2.5 MG/3 ML INH ONE (16:52)
[2021-07-23] MEDS ORDERED: ALBUTEROL NEB 2.5 MG/3 ML INH PRN (16:52)
[2021-07-23] MEDS ORDERED: methylPREDNISolone 4 MG TABLET PO ONE (17:00)
--- NOTE | 2021-07-23 17:00 | ADVANCE CARE PLANNING NOTE ---
Advance Care Planning - Planning Encounter Date: 07/23/21 Time: 12:30 Purpose: Confirm care goals and CODE STATUS with his DURABLE POWER OF MOTORBOAT MECHANIC INBOARD, mom Parties in Attendance: Mother Jean Varner at [phone], Sister Nolvia Pedro at [phone], Hospitalist Patient Decisional Capacity of the Patient: MOCA Evaluation done shows 05/19. He is oriented to person, place 50% of the time, and not oriented to date universally. - Diagnosis for Encounter (1) Failure to thrive Qualifiers: Failure to thrive age range: in adult Qualified Code(s): R62.7 - Adult failure to thrive Summary: 66-year-old male with slight paranoid and delusional thought process (he is convinced his family is out to hurt him, and that his mom is out to control him) that lives alone in his own one-room trailer/camper. No running water. Sejal wise is about 25 feet away from home. Severe alcoholic, has chronic pelvic pain since a work-related injury many years ago. Walks very slowly. In the last few months has deteriorated with increasing alcohol intake, and been refusing to eat. Has been very insistent that people leave alone and that "he wants to ". This resulted in a severely malnourished, cachectic, disoriented, dehydrated elderly gentleman. Hospice has been consulted and when the hospice nurse came to the home she called ambulance and he was brought to the hospital. - Encounter Subjective/Patient's Story: This gentleman lives on his mother's property in a 1 room "camper" that has no running water. A sejal potty is about 25 feet away from the front door. He is a alcoholic of longstanding duration. 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 Mom states that he was not insured at that time, and the learning and development officer of the business was not insured as well. As such the patient could not get much medical help. It was too onerous to come up with payment. He did get his right shoulder fixed. But ever since then he walks slowly and carefully with bilateral hip pain and low back pain. He has always been a very fiercely independent individual. Has consistently stated to his mom, and sisters that he wants to be left alone. He never wants to live in an assisted living facility. He states that if it is "my time to , it is my time to and let me go". In the last few months he has been spending more more time at home. Was drinking quite a bit. Refusing to eat well. Was living on cans of sardines and crackers. It got to the point that he could not leave his trailer. Other people were having to go to the grocery store form and bring him food. In the last few weeks has not drank at all. He does not recall going through withdrawal. But he was getting weaker and weaker. Getting harder and harder for him to ambulate and leave the camper. He was also not getting any baths. In the week before admission he could not get out of bed at all. Was confused, delirious, combative. Angry at his sisters and telling them to "leave him alone". To stop "telling me what to do". In March of last year, mom did try and get a formal power of claims attorney but he would have nothing to do with it. He does designate her as his DURABLE POWER OF MOTORBOAT MECHANIC INBOARD and that she is allowed to help him make medical decisions and to make medical decisions for him when he cannot stay conscious. But he does not want her or anyone to have power of claims attorney. He is situation was finally so dire, that his sisters were desperate. They wanted to honor his wishes of DO NOT RESUSCITATE. But at the same time they knew that they could not take care of him. Mom is frail and elderly and even though she lives on the property, needs her own help as well. She recently returned from rehab at a [facility] facility for care due to shingles. One of his sisters, Nolvia, finally asked for a hospice consult. When the hospice nurse came to the nurse to do his first evaluation she found him living in poor conditions. There was no formal diagnosis of what his terminal illness was. He had not seen a primary care provider in years. I have looked at his medical record and noted that he went to the walk-in clinic for COPD exacerbation but he would leave AMA because he did not want to wait. Hospice felt that they could not do an adequate intake and that the situation was not safe to this gentleman and as such called an ambulance and he was brought to our ER. Sister Nolvia, and mom are here today to have a family conference. They are very clear that they want to honor his wishes of minimal medical procedures. The patient has also told them that he never wants to be admitted to the hospital. He tells me today that he likes it here, that he likes the nurses, he likes to care, but he does not want to be in the hospital ever again. Mom and sister are also clearly communicating to me and social service coordinator that they cannot take care of him in his camper, nor does any family member have the finances to contribute to his care at a half-way. Objective/Medical Story: This is a 66-year-old male with a history of COPD but not on oxygen or inhaler therapy who presented today via EMS due to increasing weakness and poor appetite. The emergency department physician informed me that the patient's family had made a referral to hospice on an outpatient basis. When the hospice nurse arrived today, it was noted that the patient was quite weak and there was concern that he was unable to take care of himself. It was felt that he was not safe at home alone and so he was brought to the emergency department for further evaluation. The emergency department physician told me the patient had been living off of [facility] for the past week. The patient himself tells me he is in the hospital but he is not sure why he is here. He states that someone brought him here but he is unsure who it is. He states he lives out in the [facility] near [place]. He feels confused over the past few days and has had decreased appetite over the past week. Reports no nausea, vomiting, abdominal pain. He states he has lost over 65 pounds. He has gotten weaker over the past few days and has had difficulty walking. He denies feeling depressed. He cannot explain to me why he has had a lack of appetite. He complains of urgency and hesitancy but no dysuria or hematuria. He feels like his bladder is full and he cannot fully urinate. He takes no medications. We discussed goals of care and he would like to be a DNR. - Past Medical History Cardiovascular: reports: None Respiratory: reports: COPD Endocrine/Autoimmune: reports: None - Past Surgical History Ortho: reports: Amputation The patient had a Hopper catheter placed in his bladder was decompressed. He was started on IV fluids for dehydration and acute kidney injury and his BUN and creatinine have really returned to normal. Since the moment he has been in [facility] he is eating 100% of his food, 3 times a day. Gradually improving alertness. He was severely disheveled, dirty, malodorous. With food and a bath he has much improved his appearance. He continues to be a cachectic, slender elderly gentleman. Edentulous. Occasionally wheezing and occasional respiratory distress from COPD that responds to albuterol. He is so weak that he could not sit up nor did he have truncal stability. In the last 2 days he has now been able to sit up in bed with the help of physical therapy. Yesterday he was able to stand to pivot to turn into a chair. For the last week prior to admission he was not able to get out of bed at all. Mom states the had a fall on the job many years ago which resulted in pelvic fractures and chronic hip, sacral pain. He agrees with the history as stated by mom and sister. But gets lost in time frames and thinks some things happened last week but happened years ago. He is also suspicious of having to sign anything. Goals of Care: His goal is to remain as independent as possible in his own home. However family feels that is not a realistic goal. His second goal is to minimize hospitalizations, procedures, interventions by any medical dosimetrist, and not to be resuscitated. They feel they can honor that. Plan: 1. A POLST form was filled out for him today. His mom has included him in the conversation as a point of respect for him. She has signed his POLST form for DO NOT RESUSCITATE with focus on comfort measures treatment as verbally stated and reiterated by him with this visit. He says that he agrees with all of this but refuses to sign the POLST form. He says he just does not understand what is in this paper and he does not want to sign it in case he cannot understand it. 2. Mom and sister are in agreement for a plan for discharge to [facility] facility for physical rehabilitation. The patient, at this moment in time, is supportive of this idea as well. He states that he is already gotten better in the few days he has been here and would like to continue to get better and feel better. 3. In order for us to transfer him to a fpc facility, social work feels that we need to plan for a discharge from the fpc facility for rehab. We need to plan for long-term stay in a fpc facility due to his disabilities and lack cognitive abilities. Both mom and sister are amenable to this. The patient is not sure and is again getting suspicious of this conversation. 4. Social work will meet with home and community services on July 25 to evaluate him for possible Medicaid bed placement and funds availability. Family is agreeable to this. We have warned him that sometimes it comes down to negotiated rates. [place] this but understand that this may be his only option. Code Status: Do Not Attempt Resuscitation Time spent on advance care plannin minutes
[2021-07-23] MEDS ORDERED: MAGNESIUM HYDROXIDE 2,400 MG/30 ML UDC PO ONE (19:16)
[2021-07-23] MEDS: TAMSULOSIN 0.4 MG CAPSULE PO SCH (20:10)
[2021-07-23] MEDS: guaiFENesin 600 MG TABLET PO SCH (20:10)
[2021-07-23] MEDS ORDERED: ZINC OXIDE 20% OINT 30 GM TUBE TOP PRN (22:37)
[2021-07-24 05:14] LABS: HCT - HEMATOCRIT 29.2 % (42.0-52.0); HGB - HEMOGLOBIN 10.2 g/dL (14.0-18.0); LYMPHOCYTES # (AUTO) 0.3 10^3/uL (1.5-3.5); LYMPHOCYTES % (AUTO) 6.8 %; MEAN CORPUSCULAR HEMOGLOBIN 32.1 pg (27.0-31.0); MEAN CORPUSCULAR HGB CONC 34.9 g/dL (32.0-36.0); MEAN CORPUSCULAR VOLUME 91.8 fL (80.0-94.0); MEAN PLATELET VOLUME 10.8 fL (7.4-11.4); MONOCYTES # (AUTO) 0.4 10^3/uL (0.0-1.0); MONOCYTES % (AUTO) 9.1 %; NEUTROPHILS % (AUTO) 83.7 %; PLT - PLATELET COUNT 267 10^3/uL (130-450); RED BLOOD COUNT 3.18 10^6/uL (4.70-6.10); RED CELL DISTRIBUTION WIDTH 16.4 % (12.0-15.0); WHITE BLOOD COUNT 4.7 x10^3/uL (4.8-10.8)
[2021-07-24 05:31] LABS: CREATININE 0.8 mg/dL (0.6-1.2); MAGNESIUM 1.7 mg/dL (1.7-2.8); PHOSPHORUS 3.5 mg/dL (2.5-4.6); POTASSIUM 4.1 mmol/L (3.5-5.0)
[2021-07-24] MEDS: IPRATROPIUM/ALBUTEROL 3 ML NEB INH SCH ×3 (07:17→16:09)
[2021-07-24] MEDS: polyethylene glycoL 3350 17 GM PACKET PO SCH (07:50)
[2021-07-24] MEDS: NICOTINE 14 MG PATCH TOP SCH (07:50)
[2021-07-24] MEDS: MULTIVITAMIN W/MINERALS TABLET PO SCH (07:51)
[2021-07-24] MEDS: MAGNESIUM OXIDE 400 MG TABLET PO SCH (07:51)
[2021-07-24] MEDS: guaiFENesin 600 MG TABLET PO SCH ×2 (07:51→20:32)
[2021-07-24] MEDS: DOCUSATE SODIUM 250 MG CAPSULE PO SCH (07:51)
[2021-07-24] MEDS: THIAMINE 100 MG TABLET PO SCH (07:52)
[2021-07-24] MEDS: SENNA 8.6 MG TABLET PO SCH (07:52)
[2021-07-24] MEDS: SODIUM CHLORIDE FLUSH 0.9% 10 ML SYRINGE IVP SCH ×2 (07:52→16:48)
[2021-07-24] MEDS: AZITHROMYCIN 250 MG TABLET PO SCH (08:06)
[2021-07-24] MEDS ORDERED: methylPREDNISolone 4 MG TABLET PO ONE (12:00)
--- NOTE | 2021-07-24 14:14 | PROVIDER PROGRESS NOTE ---
Subjective - Prog Note Date Prog Note Date: 07/24/21 Prog Note Time: 14:13 - Subjective Pt reports feeling: Worse (Experiencing new substernal chest pain) Subjective: Per nursing staff, this morning Mr. Monroy was agitated and confused, saying, "I'm gonna kill him." (Shiavm - a friend). He could not elaborate why. He states he did not sleep well. He endorses mild shortness of breath and new substernal chest pain. Current Medications - Current Medications Current Medications: Active Medications Acetaminophen (Acetaminophen 325 Mg Tablet) 650 mg PO Q4HR PRN PRN Reason: Pain 1 to 4 Last Admin: 07/22/21 13:32 Dose: 650 mg Albuterol (Albuterol Neb 2.5 Mg/3 Ml) 2.5 mg INH RTQ4H PRN PRN Reason: Wheezing Albuterol/Ipratropium (Ipratropium/Albuterol 3 Ml Neb) 3 ml INH RTQID [facility] Last Admin: 07/24/21 11:23 Dose: 3 ml Azithromycin (Azithromycin 250 Mg Tablet) 250 mg PO DAILY [facility] Last Admin: 07/24/21 08:06 Dose: 250 mg Docusate Sodium (Docusate Sodium 250 Mg Capsule) 250 - 500 mg PO DAILY [facility] Last Admin: 07/24/21 07:51 Dose: 250 mg Guaifenesin (Guaifenesin 600 Mg Tablet) 600 mg PO BID [facility] Last Admin: 07/24/21 07:51 Dose: 600 mg Magnesium Oxide (Magnesium Oxide 400 Mg Tablet) 400 mg PO DAILYWM [facility] Last Admin: 07/24/21 07:51 Dose: 400 mg Methylprednisolone (Methylprednisolone 4 Mg Tablet) 16 mg PO ONCE ONE Stop: 07/25/21 08:01 Methylprednisolone (Methylprednisolone 4 Mg Tablet) 12 mg PO ONCE ONE Stop: 07/26/21 08:01 Methylprednisolone (Methylprednisolone 4 Mg Tablet) 8 mg PO ONCE ONE Stop: 07/27/21 08:01 Methylprednisolone (Methylprednisolone 4 Mg Tablet) 4 mg PO ONCE ONE Stop: 07/28/21 08:01 Multi-Ingredient Ointment (Zinc Oxide 20% Oint 30 Gm Tube) 1 applic TOP PRN PRN PRN Reason: Skin Care Last Admin: 07/23/21 23:52 Dose: 1 applic Multivitamins/Minerals (Multivitamin W/Minerals Tablet) 1 tab PO DAILYWM [facility] Last Admin: 07/24/21 07:51 Dose: 1 tab Nicotine (Nicotine 14 Mg Patch) 1 patch TOP DAILY [facility] Last Admin: 07/24/21 07:50 Dose: 1 patch Ondansetron HCl (Ondansetron Odt 4 Mg Tablet) 4 mg TL Q6HR PRN PRN Reason: Nausea / Vomiting Ondansetron HCl (Ondansetron 4 Mg/2 Ml Vial) 4 mg IVP Q6HR PRN PRN Reason: Nausea / Vomiting Polyethylene Glycol (Polyethylene Glycol 3350 17 Gm Packet) 17 gm PO DAILY [facility] Last Admin: 07/24/21 07:50 Dose: 17 gm Senna (Senna 8.6 Mg Tablet) 8.6 - 17.2 mg PO DAILY [facility] Last Admin: 07/24/21 07:52 Dose: 8.6 mg Sodium Chloride (Sodium Chloride Flush 0.9% 10 Ml Syringe) 10 ml IVP PRN PRN PRN Reason: NEEDED PER PROVIDER ORDERS Sodium Chloride (Sodium Chloride Flush 0.9% 10 Ml Syringe) 10 ml IVP 0100,0900,1700 [facility] Last Admin: 07/24/21 07:52 Dose: 10 ml Tamsulosin HCl (Tamsulosin 0.4 Mg Capsule) 0.4 mg PO HS [facility] Last Admin: 07/23/21 20:10 Dose: 0.4 mg Thiamine HCl (Thiamine 100 Mg Tablet) 100 mg PO DAILY [facility] Last Admin: 07/24/21 07:52 Dose: 100 mg No Known Home Medications 07/20/21 Objective - Vital Signs/Intake & Output Reviewed Vital Signs: Yes Vital Signs: Vital Signs x48h Temp Pulse Pulse Resp BP Pulse Ox 07/24/21 11:23 100 16 07/24/21 07:30 36.4 C L 119 H 20 154/84 H 95 07/24/21 07:18 114 H 20 Intake & Output: Intake & Output 07/21/21 07/22/21 07/23/21 07/24/21 23:59 23:59 23:59 23:59 Intake Total 3370.000 3521.66 2030 1740 Output Total 1375 2175 2275 1200 Balance 0937.233 7031.66 245 540 - Objective General Appearance: positive: No acute distress, Anxious Eyes Bilateral: positive: PERRL, EOMI, Conjunctivae nml, No scleral icterus ENT: positive: No signs of dehydration Neck: positive: No JVD, Trachea midline. negative: Stiff neck Respiratory: positive: No respiratory distress, Other (Nose breathing with decreased breath sounds bilaterally with extended expiration.). negative: Wheezes, Rales, Rhonchi Cardiovascular: positive: Regular rate & rhythm, No murmur, No gallop Peripheral Pulses: 2+ Radial (R), 2+ Radial (L) Abdomen: positive: Non-tender, Nml bowel sounds, No distention Back: positive: Nml inspection Skin: positive: No rash, Warm, Dry, Pallor (Likely due to lack of recent sun exposure.) Extremities: positive: Nml appearance (Missing L 3rd and 4th fingers and distal R 2nd finger.), No pedal edema Neurologic/Psychiatric: positive: CN's nml (2-12) (Grossly), Disoriented to place, Disoriented to time, Weakness. negative: Facial droop, Slurred/abnml speech Comments/Other: Hopper catheter in place. - Lab Results Fish Bones: 07/24/21 04:26 07/24/21 04:26 Other Labs: Lab Results x24hrs 07/24/21 07/24/21 Range/Units 04:26 04:26 WBC 4.7 L (4.8-10.8) x10^3/uL RBC 3.18 L (4.70-6.10) 10^6/uL Hgb 10.2 L (14.0-18.0) g/dL Hct 29.2 L (42.0-52.0) % MCV 91.8 (80.0-94.0) fL MCH 32.1 H (27.0-31.0) pg MCHC 34.9 (32.0-36.0) g/dL RDW 16.4 H (12.0-15.0) % Plt Count 267 (130-450) 10^3/uL MPV 10.8 (7.4-11.4) fL Neut # (Auto) 4.0 (1.5-6.6) 10^3/uL Lymph # (Auto) 0.3 L (1.5-3.5) 10^3/uL [place] # (Auto) 0.4 (0.0-1.0) 10^3/uL Eos # (Auto) 0.0 (0.0-0.7) 10^3/uL Baso # (Auto) 0.0 (0.0-0.1) 10^3/uL Absolute Nucleated RBC 0.00 x10^3/uL Nucleated RBC % 0.0 /100WBC Sodium 136 (135-145) mmol/L Potassium 4.1 (3.5-5.0) mmol/L Chloride 95 L (101-111) mmol/L Carbon Dioxide 31 (21-32) mmol/L Anion Gap 10.0 (6-13) BUN 30 H (6-20) mg/dL Creatinine 0.8 (0.6-1.2) mg/dL Estimated GFR (MDRD) 96 (>89) Glucose 137 H (70-100) mg/dL Calcium 9.0 (8.5-10.3) mg/dL Phosphorus 3.5 (2.5-4.6) mg/dL Magnesium 1.7 (1.7-2.8) mg/dL Sepsis Event Note (H) - Evaluation Current Stage of Sepsis: Ruled out Assessment/Plan - Problem List (1) Failure to thrive Impression: Mr. Monroy is still eating 100% of his meals and spending extended time sitting up in his chair. Social work still planning discharge to rehab facility. Qualifiers: Failure to thrive age range: in adult Qualified Code(s): R62.7 - Adult failure to thrive (2) COPD (chronic obstructive pulmonary disease) Impression: Breath sounds much better today without obvious rhonchi. Still complaining of mild shortness of breath. Receiving medrol and duonebs with albuterol prn. O2 sats. maintaining above 95% on room air. Will continue the same and monitor of exacerbation. Qualifiers: COPD type: emphysema Emphysema type: unspecified Qualified Code(s): J43.9 - Emphysema, unspecified (3) Chest pain at rest Impression: At 10:00, Mr. Monroy endorsed substernal chest pain. Unable to determine character, intensity, radiation, secondary to pt. getting distracted. He has been tachy, as high as 120, improving to 96 in the afternoon. EKG read was sinus tachycardia without evidence of current ischemia/infarction. Pain resolved with 650 mg acetaminophen. Will continue to monitor HR, BP and pain. Need to determine patient's wishes in event of acute PA. 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 He could be hallucinating. He does not recognize my student who has spoken with him several times today. Today, Mr. Monroy was able to state his full name and day and month of , but missed his year by one. Will continue to monitor. Qualifiers: Altered mental status type: disorientation Qualified Code(s): R41.0 - Disorientation, unspecified (5) Acute kidney injury Impression: Resolved (6) Protein-calorie malnutrition, severe Impression: He meets criteria for severe protein calorie malnutrition. He is tolerating a normal diet. We will continue to administer PO multivitamin and thiamine. He is doing well here in that eating 100% of food. Social work still trying to tease out why he wasn't eating at home. (7) Dehydration Impression: Resolved (8) Ketoacidosis Impression: Resolved
[2021-07-24] MEDS: ACETAMINOPHEN 325 MG TABLET PO PRN (16:35)
[2021-07-24] MEDS: TAMSULOSIN 0.4 MG CAPSULE PO SCH (20:31)
[2021-07-25] MEDS ORDERED: methylPREDNISolone 4 MG TABLET PO ONE (08:00)
[2021-07-25] MEDS: IPRATROPIUM/ALBUTEROL 3 ML NEB INH SCH ×4 (08:33→18:52)
[2021-07-25] MEDS: SODIUM CHLORIDE FLUSH 0.9% 10 ML SYRINGE IVP SCH ×3 (08:33→17:00)
[2021-07-25] MEDS: polyethylene glycoL 3350 17 GM PACKET PO SCH (08:34)
[2021-07-25] MEDS: THIAMINE 100 MG TABLET PO SCH (08:34)
[2021-07-25] MEDS: guaiFENesin 600 MG TABLET PO SCH ×2 (08:34→21:12)
[2021-07-25] MEDS: MAGNESIUM OXIDE 400 MG TABLET PO SCH (08:34)
[2021-07-25] MEDS: MULTIVITAMIN W/MINERALS TABLET PO SCH (08:34)
[2021-07-25] MEDS: DOCUSATE SODIUM 250 MG CAPSULE PO SCH (08:34)
[2021-07-25] MEDS: SENNA 8.6 MG TABLET PO SCH (08:34)
[2021-07-25] MEDS: AZITHROMYCIN 250 MG TABLET PO SCH (08:34)
[2021-07-25] MEDS: NICOTINE 14 MG PATCH TOP SCH (08:35)
--- NOTE | 2021-07-25 13:44 | PROVIDER PROGRESS NOTE ---
Subjective - Prog Note Date Prog Note Date: 07/25/21 Prog Note Time: 13:28 - Subjective Pt reports feeling: Improved Subjective: Mr. Monroy is a 66-year-old male with a history of COPD who is now day 7 of admission after ED arrival via EMS. Hospice had been called by family for a consult on him and found him too weak and confused to take care of himself, but without a terminal diagnosis and need for their services. He had been living in a trailer in the [facility] without running water subsisting on [employer]. Today he is feeling better. He states he slept well and is feeling a little stronger every day. He is breathing well and has refused nebulizer treatments today because "I don't need 'em". He initially endorsed substernal chest pain, but denied it five minutes later and refused acetaminophen for the same. He had a small, hard bowel movement today. He notes it was difficult and painful to pass. We spoke about removing his spangler catheter and he believes he will be able to manage urinal use tomorrow and prefers to wait to pull it until then. He endorses slight dizziness and lightheadedness. He denies shortness of breath, abdominal pain, vision changes, fever, chills. Current Medications - Current Medications Current Medications: Active Medications Acetaminophen (Acetaminophen 325 Mg Tablet) 650 mg PO Q4HR PRN PRN Reason: Pain 1 to 4 Last Admin: 07/24/21 16:35 Dose: 650 mg Albuterol (Albuterol Neb 2.5 Mg/3 Ml) 2.5 mg INH RTQ4H PRN PRN Reason: Wheezing Albuterol/Ipratropium (Ipratropium/Albuterol 3 Ml Neb) 3 ml INH RTQID [facility] Last Admin: 07/25/21 08:33 Dose: Not Given Azithromycin (Azithromycin 250 Mg Tablet) 250 mg PO DAILY [facility] Last Admin: 07/25/21 08:34 Dose: 250 mg Docusate Sodium (Docusate Sodium 250 Mg Capsule) 250 - 500 mg PO DAILY [facility] Last Admin: 07/25/21 08:34 Dose: 250 mg Guaifenesin (Guaifenesin 600 Mg Tablet) 600 mg PO BID [facility] Last Admin: 07/25/21 08:34 Dose: 600 mg Magnesium Oxide (Magnesium Oxide 400 Mg Tablet) 400 mg PO DAILYWM [facility] Last Admin: 07/25/21 08:34 Dose: 400 mg Methylprednisolone (Methylprednisolone 4 Mg Tablet) 12 mg PO ONCE ONE Stop: 07/26/21 08:01 Methylprednisolone (Methylprednisolone 4 Mg Tablet) 8 mg PO ONCE ONE Stop: 07/27/21 08:01 Methylprednisolone (Methylprednisolone 4 Mg Tablet) 4 mg PO ONCE ONE Stop: 07/28/21 08:01 Multi-Ingredient Ointment (Zinc Oxide 20% Oint 30 Gm Tube) 1 applic TOP PRN PRN PRN Reason: Skin Care Last Admin: 07/23/21 23:52 Dose: 1 applic Multivitamins/Minerals (Multivitamin W/Minerals Tablet) 1 tab PO DAILYWM [facility] Last Admin: 07/25/21 08:34 Dose: 1 tab Nicotine (Nicotine 14 Mg Patch) 1 patch TOP DAILY [facility] Last Admin: 07/25/21 08:35 Dose: 1 patch Ondansetron HCl (Ondansetron Odt 4 Mg Tablet) 4 mg TL Q6HR PRN PRN Reason: Nausea / Vomiting Ondansetron HCl (Ondansetron 4 Mg/2 Ml Vial) 4 mg IVP Q6HR PRN PRN Reason: Nausea / Vomiting Polyethylene Glycol (Polyethylene Glycol 3350 17 Gm Packet) 17 gm PO DAILY [facility] Last Admin: 07/25/21 08:34 Dose: 17 gm Senna (Senna 8.6 Mg Tablet) 8.6 - 17.2 mg PO DAILY [facility] Last Admin: 07/25/21 08:34 Dose: 8.6 mg Sodium Chloride (Sodium Chloride Flush 0.9% 10 Ml Syringe) 10 ml IVP PRN PRN PRN Reason: NEEDED PER PROVIDER ORDERS Sodium Chloride (Sodium Chloride Flush 0.9% 10 Ml Syringe) 10 ml IVP 0100,0900,1700 [facility] Last Admin: 07/25/21 08:37 Dose: 10 ml Tamsulosin HCl (Tamsulosin 0.4 Mg Capsule) 0.4 mg PO [facility] Last Admin: 07/24/21 20:31 Dose: 0.4 mg Thiamine HCl (Thiamine 100 Mg Tablet) 100 mg PO DAILY [facility] Last Admin: 07/25/21 08:34 Dose: 100 mg No Known Home Medications 07/20/21 Objective - Vital Signs/Intake & Output Reviewed Vital Signs: Yes Vital Signs: Vital Signs x48h Temp Pulse Resp BP Pulse Ox 07/25/21 08:00 36.8 C 95 18 144/81 H 92 Intake & Output: Intake & Output 07/22/21 07/23/21 07/24/21 07/25/21 23:59 23:59 23:59 23:59 Intake Total 3521.66 2030 2450 600 Output Total 2175 2275 1950 915 Balance 1346.66 -245 500 -315 - Objective General Appearance: positive: No acute distress, Alert Eyes Bilateral: positive: Normal inspection, PERRL, EOMI ENT: positive: No signs of dehydration Neck: positive: No JVD, Trachea midline. negative: Stiff neck Respiratory: positive: No respiratory distress, Other (Breath sounds diminished throughout without adventitious sounds.) Cardiovascular: positive: No murmur, No gallop, Tachycardia Abdomen: positive: Non-tender, Nml bowel sounds, No distention. negative: Guarding Back: positive: Nml inspection Skin: positive: No rash, Warm, Dry, Pallor (Likely from lack of sun exposure.) Extremities: positive: Full ROM, No pedal edema, Other (Globally atrophic. Missing 3rd and 4th fingers L hand.). negative: Joint swelling Neurologic/Psychiatric: positive: CN's nml (2-12) (Grossly), Mood/affect nml, Disoriented to place, Disoriented to time. negative: Facial droop, Slurred/abnml speech - Lab Results Fish Bones: 07/24/21 04:26 07/24/21 04:26 Sepsis Event Note (H) - Evaluation Current Stage of Sepsis: Ruled out Assessment/Plan - Problem List (1) Failure to thrive Impression: Mr. Monroy is still eating 100% of his meals and spending extended time sitting up in his chair. Social work still planning discharge to rehab facility. Qualifiers: Failure to thrive age range: in adult Qualified Code(s): R62.7 - Adult failure to thrive (2) COPD (chronic obstructive pulmonary disease) Impression: Denies SOB today and refusing duonebs. Continuing medrol dose pack duonebs with albuterol prn. O2 sats. maintaining above 92% on room air. Will continue the same and monitor for exacerbation. Qualifiers: COPD type: emphysema Emphysema type: unspecified Qualified Code(s): J43.9 - Emphysema, unspecified (3) Altered mental status Impression: He remains confused but now answering appropriately to more questions. He has not been agitated or paranoid today. Today, Mr. Monroy was able to state his full name and birthday without mistakes. Will continue to monitor. Qualifiers: Altered mental status type: disorientation Qualified Code(s): R41.0 - Disor ientation, unspecified (4) Chest pain at rest Impression: Endorsed then denied chest pain 5 minutes later. Refused acetaminophen. Not associated with SOB. He remains tachy, as high as 117. EKG yesterday showed sinus tach without evidence of ischemia or infarction. Will continue to monitor. (5) Acute kidney injury Impression: Resolved
[2021-07-25] MEDS: TAMSULOSIN 0.4 MG CAPSULE PO SCH (21:12)
[2021-07-26] MEDS: SODIUM CHLORIDE FLUSH 0.9% 10 ML SYRINGE IVP SCH ×3 (01:46→17:08)
[2021-07-26] MEDS: IPRATROPIUM/ALBUTEROL 3 ML NEB INH SCH ×4 (07:06→19:09)
[2021-07-26] MEDS ORDERED: methylPREDNISolone 4 MG TABLET PO ONE (08:00)
[2021-07-26 08:06] LABS: BASOPHILS % (AUTO) 0.2 %; EOSINOPHILS # (AUTO) 0.1 10^3/uL (0.0-0.7); EOSINOPHILS % (AUTO) 0.9 %; HCT - HEMATOCRIT 28.9 % (42.0-52.0); HGB - HEMOGLOBIN 10.2 g/dL (14.0-18.0); LYMPHOCYTES # (AUTO) 1.1 10^3/uL (1.5-3.5); LYMPHOCYTES % (AUTO) 12.1 %; MEAN CORPUSCULAR HEMOGLOBIN 32.4 pg (27.0-31.0); MEAN CORPUSCULAR HGB CONC 35.3 g/dL (32.0-36.0); MEAN CORPUSCULAR VOLUME 91.7 fL (80.0-94.0); MEAN PLATELET VOLUME 9.6 fL (7.4-11.4); MONOCYTES # (AUTO) 1.7 10^3/uL (0.0-1.0); MONOCYTES % (AUTO) 18.7 %; NEUTROPHILS # (AUTO) 6.2 10^3/uL (1.5-6.6); NEUTROPHILS % (AUTO) 67.8 %; PLT - PLATELET COUNT 260 10^3/uL (130-450); RED BLOOD COUNT 3.15 10^6/uL (4.70-6.10); RED CELL DISTRIBUTION WIDTH 17.1 % (12.0-15.0); WHITE BLOOD COUNT 9.1 x10^3/uL (4.8-10.8)
[2021-07-26 08:13] LABS: CALCIUM 8.7 mg/dL (8.5-10.3); CREATININE 0.8 mg/dL (0.6-1.2); POTASSIUM 3.6 mmol/L (3.5-5.0)
[2021-07-26 08:37] LABS: PLATELET ESTIMATE, MANUAL NORMAL (130-450,000) (NORMAL); PLATELET MORPHOLOGY NORMAL APPEARANCE (NORMAL); RBC MORPHOLOGY (MULTIPLE) NORMAL APPEARANCE (NORMAL); SLIDE REVIEW? Indicated; WBC MORPHOLOGY (MULTIPLE) NORMAL APPEARANCE (NORMAL)
[2021-07-26] MEDS: polyethylene glycoL 3350 17 GM PACKET PO SCH (10:03)
[2021-07-26] MEDS: THIAMINE 100 MG TABLET PO SCH (10:04)
[2021-07-26] MEDS: ACETAMINOPHEN 325 MG TABLET PO PRN ×2 (10:04→20:32)
[2021-07-26] MEDS: MAGNESIUM OXIDE 400 MG TABLET PO SCH (10:04)
[2021-07-26] MEDS: DOCUSATE SODIUM 250 MG CAPSULE PO SCH (10:05)
[2021-07-26] MEDS: AZITHROMYCIN 250 MG TABLET PO SCH (10:05)
[2021-07-26] MEDS: SENNA 8.6 MG TABLET PO SCH (10:05)
[2021-07-26] MEDS: guaiFENesin 600 MG TABLET PO SCH ×2 (10:05→20:28)
[2021-07-26] MEDS: PANTOPRAZOLE 40 MG TABLET PO SCH (10:06)
[2021-07-26] MEDS: MULTIVITAMIN W/MINERALS TABLET PO SCH (10:06)
[2021-07-26] MEDS: NICOTINE 14 MG PATCH TOP SCH (10:07)
--- NOTE | 2021-07-26 10:36 | XRAY Report ---
PROCEDURE: Chest 1 View X-Ray INDICATIONS: sob TECHNIQUE: One view of the chest was acquired. COMPARISON: and 09/18/2016 FINDINGS: Surgical changes and devices: None. Lungs and pleura: Persistent hyperaeration. Increased blunting of the bilateral costophrenic angles l ikely representing small bilateral pleural effusions. No focal consolidations. No pneumothorax. Mediastinum: Mediastinal contours appear normal. Heart size is normal. Bones and chest wall: No suspicious bony lesions. Overlying soft tissues appear unremarkable. IMPRESSION: Small bilateral pleural effusions. Redemonstration of chronic obstructive pulmonary physiology. No fo quinten consolidation. Reviewed by: Gómez Lu MD on 07/26/2021 10:34 AM [facility] Approved by: Gómez Lu MD on 07/26/2021 10:34 AM [facility] Station ID: [id number]
--- NOTE | 2021-07-26 10:44 | PROVIDER PROGRESS NOTE ---
Assessment/Plan - Problem List (1) Failure to thrive Qualifiers: Failure to thrive age range: in adult Qualified Code(s): R62.7 - Adult failure to thrive Assessment/Plan: 07/26 Improved, patient continue to eat 100% of his meals. Patient has no comp laints. Continue PT and OT for patient, continue consult with social work for disposition planning. Social work still planning discharge to rehab facility. social media editor hope pt have Covid 19 vaccination for d/c planning. Called pt's sibling Nolvia, she report pt has no COVID-19 vaccination, she think pt might have Covid 19 vaccination at ER "because my brother had needle point at his arm." I called pharmacy, check if pt had Covid 19 vaccination, otherwise pt may have Cade Covid 19 vaccination. (2) COPD (chronic obstructive pulmonary disease) Impression: 07/26 Patient has 92% oxygen saturation on room air, patient did show mild shortness of breathing When he answered questions. Unfortunately patient still declined to have treatment for his COPD. Repeated chest x-ray show COPD without significant acute process. continue taper Of steroid. continue duonebs with albuterol. For O2 sats, maintaining above 92% on room air. (3) Altered mental status Impression: stable, He remains confused but now answering appropriately to more questions. He has not been agitated or paranoid today Today. (4) Chest pain at rest resolved. pt denies any chest pain or discomfortable. (5) Acute kidney injury Impression: Resolved - Current Meds Current Meds: Current Medications Generic Name Dose Route Start Last Admin Trade Name Tomiq PRN Reason Stop Dose Admin Acetaminophen 650 mg 07/19/21 21:41 07/26/21 10:04 Acetaminophen 325 Mg Tablet PO 650 mg Q4HR PRN Administration Pain 1 to 4 Albuterol/Ipratropium 3 ml 07/21/21 19:00 07/26/21 07:06 Ipratropium/Albuterol 3 Ml Neb INH Not Given RTQID PACO Azithromycin 250 mg 07/24/21 09:00 07/26/21 10:05 Azithromycin 250 Mg Tablet PO 250 mg DAILY [facility] Administration Docusate Sodium 250 - 500 mg 07/22/21 09:00 07/26/21 10:05 Docusate Sodium 250 Mg Capsule PO 250 mg DAILY [facility] Administration Guaifenesin 600 mg 07/23/21 21:00 07/26/21 10:05 Guaifenesin 600 Mg Tablet PO 600 mg BID PACO Administration Magnesium Oxide 400 mg 07/22/21 13:00 07/26/21 10:04 Magnesium Oxide 400 Mg Tablet PO 400 mg DAILYWM [facility] Administration Multi-Ingredient Ointment 1 applic 07/23/21 22:37 07/23/21 23:52 Zinc Oxide 20% Oint 30 Gm Tube TOP 1 applic PRN PRN Administration Skin Care Multivitamins/Minerals 1 tab 07/21/21 08:00 07/26/21 10:06 Multivitamin W/Minerals Tablet PO 1 tab DAILYWM [facility] Administration Nicotine 1 patch 07/20/21 09:00 07/26/21 10:07 Nicotine 14 Mg Patch TOP 1 patch DAILY [facility] Administration Pantoprazole Sodium 40 mg 07/26/21 08:00 07/26/21 10:06 Pantoprazole 40 Mg Tablet PO 40 mg QDAC [facility] Administration Polyethylene Glycol 17 gm 07/21/21 09:00 07/26/21 10:03 Polyethylene Glycol 3350 17 Gm Packet PO 17 gm DAILY [facility] Administration Senna 8.6 - 17.2 mg 07/22/21 09:00 07/26/21 10:05 Senna 8.6 Mg Tablet PO 8.6 mg DAILY [facility] Administration Sodium Chloride 10 ml 07/20/21 01:00 07/26/21 10:07 Sodium Chloride Flush 0.9% 10 Ml Syringe IVP 10 ml 0100,0900,1700 [facility] Administration Tamsulosin HCl 0.4 mg 07/19/21 23:45 07/25/21 21:12 Tamsulosin 0.4 Mg Capsule PO 0.4 mg HS [facility] Administration Thiamine HCl 100 mg 07/20/21 09:00 07/26/21 10:04 Thiamine 100 Mg Tablet PO 100 mg DAILY [facility] Administration - Lab Result Fish Bone Diagrams: 07/26/21 07:59 07/26/21 07:59 - Additional Planning My Orders: My Active Orders 07/26/21 Pharmacy Consult [CONS] Routine 07/26/21 08:00 Pantoprazole [Protonix] 40 mg PO QDAC 07/26/21 10:04 Hopper Discontinuation [RC] ONCE 07/26/21 11:00 Enoxaparin [Lovenox] 40 mg SUBQ DAILY Subjective - Subjective Patient Reports: Resting Comfortably Objective Vital Signs: Vital Signs - 24 hr 07/25/21 07/25/21 07/25/21 15:50 16:44 23:49 Temperature 36.6 C 36.6 C Heart Rate 104 H Heart Rate [ 121 H 112 H Brachial] Respiratory 20 18 18 Rate Blood Pressure 148/86 H 144/76 H [Right Brachial artery] O2 Saturation 95 92 07/26/21 08:10 Temperature 37.1 C Heart Rate Heart Rate [ 99 Brachial] Respiratory 18 Rate Blood Pressure 135/78 H [Right Brachial artery] O2 Saturation 92 Oxygen O2 Source Room air I&O (Last 24 Hrs): Intake and Output Totals x24h 07/24/21 07/25/21 07/26/21 23:59 23:59 23:59 Intake Total 2450 1430 1090 Output Total 1950 1915 975 Balance 500 -485 115 General: Alert, Cooperative, No acute distress HEENT: Atraumatic Neck: Supple Lymphatic: no adenopathy Neuro: Alert, Non Focal Cardiovascular: Regular rate, Normal S1, Normal S2 Respiratory: Chest non-tender, No respiratory distress Abdomen: Normal bowel sounds, Soft Extremities: Normal pulses - Results Results: Laboratory Results WBC 9.1 x10^3/uL (4.8-10.8) 07/26/21 07:59 RBC 3.15 10^6/uL (4.70-6.10) L 07/26/21 07:59 Hgb 10.2 g/dL (14.0-18.0) L 07/26/21 07:59 Hct 28.9 % (42.0-52.0) L 07/26/21 07:59 MCV 91.7 fL (80.0-94.0) 07/26/21 07:59 MCH 32.4 pg (27.0-31.0) H 07/26/21 07:59 MCHC 35.3 g/dL (32.0-36.0) 07/26/21 07:59 RDW 17.1 % (12.0-15.0) H 07/26/21 07:59 Plt Count 260 10^3/uL (130-450) 07/26/21 07:59 MPV 9.6 fL (7.4-11.4) 07/26/21 07:59 Neut # (Auto) 6.2 10^3/uL (1.5-6.6) 07/26/21 07:59 Lymph # (Auto) 1.1 10^3/uL (1.5-3.5) L 07/26/21 07:59 [place] # (Auto) 1.7 10^3/uL (0.0-1.0) H 07/26/21 07:59 Eos # (Auto) 0.1 10^3/uL (0.0-0.7) 07/26/21 07:59 Baso # (Auto) 0.0 10^3/uL (0.0-0.1) 07/26/21 07:59 Absolute Nucleated RBC 0.00 x10^3/uL 07/26/21 07:59 Nucleated RBC % 0.0 /100WBC 07/26/21 07:59 Manual Slide Review Indicated 07/26/21 07:59 WBC Morphology NORMAL APPEARANCE (NORMAL) 07/26/21 07:59 Platelet Estimate NORMAL (130-450,000) (NORMAL) 07/26/21 07:59 Platelet Morphology NORMAL APPEARANCE (NORMAL) 07/26/21 07:59 RBC Morph Micro Appear NORMAL APPEARANCE (NORMAL) 07/26/21 07:59 PT 9.6 secs (9.9-12.6) L 07/19/21 19:18 INR 0.9 (0.8-1.2) 07/19/21 19:18 APTT 29.0 secs (24.9-33.3) 07/19/21 19:18 Sodium 135 mmol/L (135-145) 07/26/21 07:59 Potassium 3.6 mmol/L (3.5-5.0) 07/26/21 07:59 Chloride 97 mmol/L (101-111) L 07/26/21 07:59 Carbon Dioxide 30 mmol/L (21-32) 07/26/21 07:59 Anion Gap 8.0 (6-13) 07/26/21 07:59 BUN 28 mg/dL (6-20) H 07/26/21 07:59 Creatinine 0.8 mg/dL (0.6-1.2) 07/26/21 07:59 Estimated GFR (MDRD) 96 (>89) 07/26/21 07:59 Glucose 92 mg/dL (70-100) 07/26/21 07:59 Calcium 8.7 mg/dL (8.5-10.3) 07/26/21 07:59 Phosphorus 3.5 mg/dL (2.5-4.6) 07/24/21 04:26 Magnesium 1.7 mg/dL (1.7-2.8) 07/24/21 04:26 Total Bilirubin 1.5 mg/dL (0.2-1.0) H 07/19/21 19:18 AST 80 IU/L (10-42) H 07/19/21 19:18 ALT 80 IU/L (10-60) H 07/19/21 19:18 Alkaline Phosphatase 61 IU/L (42-121) 07/19/21 19:18 Ammonia < 10.0 umol/L (7-35) 07/19/21 21:52 Total Protein 7.4 g/dL (6.7-8.2) 07/19/21 19:18 Albumin 4.1 g/dL (3.2-5.5) 07/19/21 19:18 Globulin 3.3 g/dL (2.1-4.2) 07/19/21 19:18 Albumin/Globulin Ratio 1.2 (1.0-2.2) 07/19/21 19:18 Lipase 118 U/L (22-51) H 07/19/21 19:18 Vitamin B12 772 pg/mL (180-914) 07/20/21 05:10 Folate 11.07 ng/mL (5.90 - >24.8) 07/20/21 05:10 TSH 3.44 uIU/mL (0.34-5.60) 07/19/21 19:18 Urine Color DARK YELLOW 07/19/21 23:35 Urine Clarity CLEAR (CLEAR) 07/19/21 23:35 Urine pH 5.0 PH (5.0-7.5) 07/19/21 23:35 Ur Specific Switzer >=1.030 (1.002-1.030) H 07/19/21 23:35 Urine Protein NEGATIVE mg/dL (NEGATIVE) 07/19/21 23:35 Urine Glucose (UA) NEGATIVE mg/dL (NEGATIVE) 07/19/21 23:35 Urine Ketones TRACE mg/dL (NEGATIVE) 07/19/21 23:35 Urine Occult Blood TRACE-LYSE (NEGATIVE) 07/19/21 23:35 Urine Nitrite NEGATIVE (NEGATIVE) 07/19/21 23:35 Urine Bilirubin NEGATIVE (NEGATIVE) 07/19/21 23:35 Urine Urobilinogen 0.2 (NORMAL) E.U./dL (NORMAL) 07/19/21 23:35 Ur Leukocyte Esterase NEGATIVE (NEGATIVE) 07/19/21 23:35 Ur Microscopic Review NOT INDICATED 07/19/21 23:35 Urine Culture Comments NOT INDICATED 07/19/21 23:35 Nasal Adenovirus (PCR) NOT DETECTED 07/19/21 22:35 Nasal B. parapertussis DNA (PCR) NOT DETECTED 07/19/21 22:35 Nasal Coronavir 229E PCR NOT DETECTED 07/19/21 22:35 Nasal Coronavir HKU1 PCR NOT DETECTED 07/19/21 22:35 Nasal Coronavir NL63 PCR NOT DETECTED 07/19/21 22:35 Nasal Coronavir OC43 PCR NOT DETECTED 07/19/21 22:35 Nasal Enterovir/Rhinovir PCR NOT DETECTED 07/19/21 22:35 Nasal Influenza B PCR NOT DETECTED 07/19/21 22:35 Nasal Influenza A PCR NOT DETECTED 07/19/21 22:35 Nasal Parainfluen 1 PCR NOT DETECTED 07/19/21 22:35 Nasal Parainfluen 2 PCR NOT DETECTED 07/19/21 22:35 Nasal Parainfluen 3 PCR NOT DETECTED 07/19/21 22:35 Nasal Parainfluen 4 PCR NOT DETECTED 07/19/21 22:35 Nasal RSV (PCR) NOT DETECTED 07/19/21 22:35 Nasal B.pertussis DNA PCR NOT DETECTED 07/19/21 22:35 Nasal C.pneumoniae (PCR) NOT DETECTED 07/19/21 22:35 Ky Human Metapneumo PCR NOT DETECTED 07/19/21 22:35 Nasal M.pneumoniae (PCR) NOT DETECTED 07/19/21 22:35 Nasal SARS-CoV-2 (PCR) NOT DETECTED 07/19/21 22:35 Salicylates < 6.0 mg/dL 07/19/21 19:18 Urine Opiates Screen NEGATIVE (NEGATIVE) 07/19/21 23:35 Ur Oxycodone Screen NEGATIVE (NEGATIVE) 07/19/21 23:35 Urine Methadone Screen NEGATIVE (NEGATIVE) 07/19/21 23:35 Ur Propoxyphene Screen NEGATIVE (NEGATIVE) 07/19/21 23:35 Acetaminophen < 10 ug/mL (10-30) L 07/19/21 19:18 Ur Barbiturates Screen NEGATIVE (NEGATIVE) 07/19/21 23:35 Ur Tricyclics Screen NEGATIVE (NEGATIVE) 07/19/21 23:35 Ur Phencyclidine Scrn NEGATIVE (NEGATIVE) 07/19/21 23:35 Ur Amphetamine Screen NEGATIVE (NEGATIVE) 07/19/21 23:35 U Methamphetamines Scrn NEGATIVE (NEGATIVE) 07/19/21 23:35 U Benzodiazepines Scrn NEGATIVE (NEGATIVE) 07/19/21 23:35 Urine Cocaine Screen NEGATIVE (NEGATIVE) 07/19/21 23:35 U Cannabinoids Screen NEGATIVE (NEGATIVE) 07/19/21 23:35 Ethyl Alcohol < 5.0 mg/dL 07/19/21 19:18 Serum Ketones SMALL (NEGATIVE) H 07/19/21 21:52 Sepsis Event Note (H) - Evaluation Current Stage of Sepsis: Ruled out ABX Reporting Has patient been on IV antibiotics over the past 48 hours?: Yes Current Medications - Current Medications Current Medications: Active Medications Acetaminophen (Acetaminophen 325 Mg Tablet) 650 mg PO Q4HR PRN PRN Reason: Pain 1 to 4 Last Admin: 07/26/21 10:04 Dose: 650 mg Albuterol (Albuterol Neb 2.5 Mg/3 Ml) 2.5 mg INH RTQ4H PRN PRN Reason: Wheezing Albuterol/Ipratropium (Ipratropium/Albuterol 3 Ml Neb) 3 ml INH RTQID [facility] Last Admin: 07/26/21 07:06 Dose: Not Given Azithromycin (Azithromycin 250 Mg Tablet) 250 mg PO DAILY [facility] Last Admin: 07/26/21 10:05 Dose: 250 mg Docusate Sodium (Docusate Sodium 250 Mg Capsule) 250 - 500 mg PO DAILY [facility] Last Admin: 07/26/21 10:05 Dose: 250 mg Enoxaparin Sodium (Enoxaparin 40 Mg/0.4 Ml Syringe) 40 mg SUBQ DAILY [facility] Guaifenesin (Guaifenesin 600 Mg Tablet) 600 mg PO BID [facility] Last Admin: 07/26/21 10:05 Dose: 600 mg Magnesium Oxide (Magnesium Oxide 400 Mg Tablet) 400 mg PO DAILYWM [facility] Last Admin: 07/26/21 10:04 Dose: 400 mg Methylprednisolone (Methylprednisolone 4 Mg Tablet) 8 mg PO ONCE ONE Stop: 07/27/21 08:01 Methylprednisolone (Methylprednisolone 4 Mg Tablet) 4 mg PO ONCE ONE Stop: 07/28/21 08:01 Multi-Ingredient Ointment (Zinc Oxide 20% Oint 30 Gm Tube) 1 applic TOP PRN PRN PRN Reason: Skin Care Last Admin: 07/23/21 23:52 Dose: 1 applic Multivitamins/Minerals (Multivitamin W/Minerals Tablet) 1 tab PO DAILYWM [facility] Last Admin: 07/26/21 10:06 Dose: 1 tab Nicotine (Nicotine 14 Mg Patch) 1 patch TOP DAILY [facility] Last Admin: 07/26/21 10:07 Dose: 1 patch Ondansetron HCl (Ondansetron Odt 4 Mg Tablet) 4 mg TL Q6HR PRN PRN Reason: Nausea / Vomiting Ondansetron HCl (Ondansetron 4 Mg/2 Ml Vial) 4 mg IVP Q6HR PRN PRN Reason: Nausea / Vomiting Pantoprazole Sodium (Pantoprazole 40 Mg Tablet) 40 mg PO QDAC [facility] Last Admin: 07/26/21 10:06 Dose: 40 mg Polyethylene Glycol (Polyethylene Glycol 3350 17 Gm Packet) 17 gm PO DAILY [facility] Last Admin: 07/26/21 10:03 Dose: 17 gm Senna (Senna 8.6 Mg Tablet) 8.6 - 17.2 mg PO DAILY [facility] Last Admin: 07/26/21 10:05 Dose: 8.6 mg Sodium Chloride (Sodium Chloride Flush 0.9% 10 Ml Syringe) 10 ml IVP PRN PRN PRN Reason: NEEDED PER PROVIDER ORDERS Sodium Chloride (Sodium Chloride Flush 0.9% 10 Ml Syringe) 10 ml IVP 0100,0900,1700 [facility] Last Admin: 07/26/21 10:07 Dose: 10 ml Tamsulosin HCl (Tamsulosin 0.4 Mg Capsule) 0.4 mg PO HS [facility] Last Admin: 07/25/21 21:12 Dose: 0.4 mg Thiamine HCl (Thiamine 100 Mg Tablet) 100 mg PO DAILY [facility] Last Admin: 07/26/21 10:04 Dose: 100 mg No Known Home Medications 07/20/21
[2021-07-26] MEDS: ENOXAPARIN 40 MG/0.4 ML SYRINGE SUBQ SCH (11:53)
[2021-07-26] MEDS ORDERED: COVID-19 VAC,AD26(JANSSEN)/PF 0.5 ML SYRINGE IM ONE (13:00)
[2021-07-26 17:22] LABS: B. PARAPERTUSSIS- RESP PCR PAN NOT DETECTED; B. PERTUSSIS- RESP PCR PANEL NOT DETECTED; C. PNEUMONIAE- RESP PCR PANEL NOT DETECTED; CORONAVIRUS 229E-RESP PCR NOT DETECTED; CORONAVIRUS HKU1-RESP PCR NOT DETECTED; CORONAVIRUS NL63-RESP PCR NOT DETECTED; CORONAVIRUS OC43-RESP PCR NOT DETECTED; HUMAN METAPNEUMOVIRUS NOT DETECTED; INFLUENZA A- RESP PCR PANEL NOT DETECTED; INFLUENZA B - RESP PCR PANEL NOT DETECTED; M. PNEUMONIAE- RESP PCR PANEL NOT DETECTED; PARAINFLUENZA VIRUS 1 NOT DETECTED; PARAINFLUENZA VIRUS 2 NOT DETECTED; PARAINFLUENZA VIRUS 3 NOT DETECTED; PARAINFLUENZA VIRUS 4 NOT DETECTED; RHINOVIRUS/ENTEROVIRUS NOT DETECTED; RSV- RESP PCR PANEL NOT DETECTED; SARS-CoV-2 -RESP PCR PANEL NOT DETECTED
[2021-07-26] MEDS: TAMSULOSIN 0.4 MG CAPSULE PO SCH (20:28)
[2021-07-27] MEDS: ACETAMINOPHEN 325 MG TABLET PO PRN (00:45)
[2021-07-27] MEDS: IPRATROPIUM/ALBUTEROL 3 ML NEB INH SCH ×2 (07:08→11:33)
[2021-07-27 07:24] VITALS: BP 149/90
--- NOTE | 2021-07-27 07:34 | Discharge Plan ---
"Discharge Plan for SNF / [facility] - Discharge Plan And Transition Orders Problem Reviewed?: Yes Disposition: 03 SNF DC/Xfer Condition: Stable Allergies and Adverse Reactions: Allergies Allergy/AdvReac Type Severity Reaction Status Date / Time Penicillins Allergy Anaphylaxis Verified 09/18/16 07:50 Health Concerns: failure to thrive/dehydration, COPD, dementia/confused, urinary retention Plan of Treatment: pt can eat by himself and ate 100% his Glaze Carrier soft diet in hospital, please keep hydration for pt as well. pt has hx of COPD, pt is prescribed taper of medrol and another two dosage of Azithromycin, Albuterol and Ipratropium PRN. Pt has 100% O2 sats on room air now. Pt has hx of dementia and chronic confusion. pt may continue to have nurse care and skin care as well. Pt still present urinary retention. Now pt has Hopper. Pt may have Hopper care, and followup with urologist. Pt is prescribed Flomax. pt had Cade's Covid 19 vaccination on 07/26/21 Care Goals: Stabilization and improvement of patient's medical conditions Assessment: Medical team and I called pt's sister on yesterday for pt's care plan, answered her questions. - SNF / [facility] Transition Orders Admit to (Facility): [facility] Under the care of (Name): Medical Provider of [facility] Discharge Diagnosis: failure to thrive, COPD, dementia/altered mental status, RADHA, urinary retention. Medicare Certification Statement: I certify that [facility] care is medically necessary on a continuing basis for any of the conditions for which she/he is receiving care during hospitalization. Notify PCP of admission and forward orders to primary provider for signature. Weight on admission and: Weekly Call PCP immediately if weight increases by: 2 kg Other Notification Orders: Call PCP immediately if patient develops dyspnea, chest pain/tightness or edema. House Bowel Program: Yes Additional Bowel Program Orders: If no BM after 2 days, nurse may give M.O.M. 30ml PO PRN and/or ducolax Supp 1 ID and/or IQRA 250mg P.O., and/or senna 1-2 tabs PO. On day 3 nurse may give repeat above order until residents constipation is resolved. Annual Influenza Vaccine (between Jan 19 and August 18): Yes Two-step PPD per [place] [id number] or approved exception documents: Yes Treatments & Other Orders: pt can eat by himself and ate 100% his Glaze Carrier soft diet in hospital, please keep hydration for pt as well. pt has hx of COPD, pt is prescribed taper of medrol and another two dosage of Azithromycin, Albuterol and Ipratropium PRN. Pt has 100% O2 sats on room air now. Pt has hx of dementia and chronic confusion. pt may continue to have nurse care and skin care as well. Pt still present urinary retention. Now pt has Hopper. Pt may have Hopper care, and followup with urologist. Pt is prescribed Flomax. pt had Cade's Covid 19 vaccination on 07/26/21 Medication Orders: PLEASE REFER TO THE DISCHARGE MEDICATION LIST. Insulin Orders?: No - Medications New Prescriptions: Ipratropium [Atrovent] 1 puffs INH Q6H PRN #1 inh PRN Reason: Shortness Of Air/Wheezing Tamsulosin [Flomax] 0.4 mg PO HS #30 cap Albuterol Sulfate [Proair Hfa Inhaler] 2 puffs INH Q4H PRN #1 inh PRN Reason: Shortness Of Air/Wheezing Multivitamin W/Minerals [Theragran M] 1 tab PO DAILYWM #30 tablet Thiamine [Vitamin B-1] 100 mg PO DAILY #30 tablet Azithromycin [Zithromax] 250 mg PO DAILY #2 tablet - Diet Type: Geriatric Texture: Regular Liquids: Thin May have monthly special meal: Yes - Therapies | Activity Therapy: Evaluation | Treat if indicated: PT, OT Rehabilitation Potential: Maximize functional status Activity: Activity as Tolerated"
[2021-07-27] MEDS: MULTIVITAMIN W/MINERALS TABLET PO SCH (07:48)
[2021-07-27] MEDS: MAGNESIUM OXIDE 400 MG TABLET PO SCH (07:48)
[2021-07-27] MEDS: PANTOPRAZOLE 40 MG TABLET PO SCH (07:48)
[2021-07-27] MEDS: THIAMINE 100 MG TABLET PO SCH (07:49)
[2021-07-27] MEDS: guaiFENesin 600 MG TABLET PO SCH (07:49)
[2021-07-27] MEDS: AZITHROMYCIN 250 MG TABLET PO SCH (07:49)
[2021-07-27] MEDS: ENOXAPARIN 40 MG/0.4 ML SYRINGE SUBQ SCH (07:51)
[2021-07-27] MEDS: DOCUSATE SODIUM 250 MG CAPSULE PO SCH (07:52)
[2021-07-27] MEDS: NICOTINE 14 MG PATCH TOP SCH (07:52)
[2021-07-27] MEDS: SENNA 8.6 MG TABLET PO SCH (07:53)
[2021-07-27] MEDS: polyethylene glycoL 3350 17 GM PACKET PO SCH (07:53)
[2021-07-27] MEDS ORDERED: methylPREDNISolone 4 MG TABLET PO ONE ×2 (08:00→12:00)
--- NOTE | 2021-07-27 09:19 | DISCHARGE SUMMARY ---
Discharge Summary Admit Date: 07/19/21 Discharge Date: 07/27/21 Discharging Provider: Nigel Krishna Primary Care Provider: Yunior Head Condition at Discharge: Stable Discharge Disposition: SNF DC/Xfer Discharge [facility] Name: [facility] - DIAGNOSES Discharge Diagnoses with Status of Each Condition: (1) Failure to thrive improved. pt ate 100% of his meal at hospital. (2) COPD (chronic obstructive pulmonary disease) pt has 100% O2 sat on room air without acute respiratory distress. pt is prescribed Albuterol, Atrovent PRN, taper down of Medrol, and two dosage of Azithromycin to finish the treatment course. Patient may follow-up with regional driver as outpatient. (3) dementia with confused stable, pt remains confused but now answering appropriately to more questions. He has not been agitated or paranoid. (4) urinary retention Patient had Hopper catheter now, patient is a prescript of Flomax, patient may follow-up with urologist as outpatient (5) Acute kidney injury Resolved. Patient may keep hydration at SNF (6)weakness Patient had PT and OT evaluation and treatment, patient is to DC to the SNF per recommendation. - HPI History of Present Illness: refer from Dr. Guillen's HPI on 07/19/21 This is a 66-year-old male with a history of COPD but not on oxygen or inhaler therapy who presented today via EMS due to increasing weakness and poor appetite. The emergency department physician informed me that the patient's family had made a referral to hospice on an outpatient basis. When the hospice nurse arrived today, it was noted that the patient was quite weak and there was concern that he was unable to take care of himself. It was felt that he was not safe at home alone and so he was brought to the emergency department for further evaluation. The emergency department physician told me the patient had been living off of [employer] and [employer] for the past week. The patient himself tells me he is in the hospital but he is not sure why he is here. He states that someone brought him here but he is unsure who it is. He states he lives out in the [facility] near [place]. He feels confused over the past few days and has had decreased appetite over the past week. Reports no nausea, vomiting, abdominal pain. He states he has lost over 65 pounds. He has gotten weaker over the past few days and has had difficulty walking. He denies feeling depressed. He cannot explain to me why he has had a lack of appetite. He complains of urgency and hesitancy but no dysuria or hematuria. He feels like his bladder is full and he cannot fully urinate. He takes no medications. We discussed goals of care and he would like to be a DNR. (Richy Guillen) - ALLERGIES Allergies/Adverse Reactions: Allergies Allergy/AdvReac Type Severity Reaction Status Date / Time Penicillins Allergy Anaphylaxis Verified 09/18/16 07:50 - MEDICATIONS Home Medications: Ambulatory Orders Medication Instructions Recorded Confirmed Albuterol Sulfate [Proair Hfa 2 puffs INH Q4H PRN #1 inh 07/27/21 Inhaler] Azithromycin [Zithromax] 250 mg PO DAILY #2 tablet 07/27/21 Ipratropium [Atrovent] 1 puffs INH Q6H PRN #1 inh 07/27/21 Multivitamin W/Minerals [Theragran 1 tab PO DAILYWM #30 tablet 07/27/21 M] Tamsulosin [Flomax] 0.4 mg PO HS #30 cap 07/27/21 Thiamine [Vitamin B-1] 100 mg PO DAILY #30 tablet 07/27/21 methylPREDNISolone [Medrol] 2 mg PO 0800 1 Days #1 tablet 07/27/21 methylPREDNISolone [Medrol] 4 mg PO 0800 1 Days #1 tablet 07/27/21 - PHYSICAL EXAM AT DISCHARGE General Appearance: positive: No acute distress, Alert. negative: Lethargic Eyes Bilateral: positive: Normal inspection, No lid inflammation ENT: positive: ENT inspection nml, No signs of dehydration. negative: Purulent nasal drainage Neck: positive: Nml inspection, Trachea midline. negative: Tracheal deviation Respiratory: positive: Chest non-tender, No respiratory distress. negative: Wheezes, Rales Cardiovascular: positive: Regular rate & rhythm. negative: Tachycardia, Bradycardia, Systolic murmur Peripheral Pulses: positive: 2+ Abdomen: positive: Non-tender, Nml bowel sounds, No distention. negative: Tenderness Back: positive: Nml inspection Skin: positive: Color nml, Warm, Dry. negative: Cyanosis Extremities: positive: Non-tender, Full ROM, Nml appearance Neurologic/Psychiatric: positive: Motor nml, Sensation nml. negative: Weakness, Sensory loss, Facial droop, Slurred/abnml speech - LABS Result Diagrams: 07/26/21 07:59 07/26/21 07:59 - SEPSIS Current Stage of Sepsis: Ruled out - FOLLOW UP Follow Up: pt can eat by himself and ate 100% his Apron Trimmer soft diet in hospital, please keep hydration for pt as well. pt has hx of COPD, pt is prescribed taper of medrol and another two dosage of Azithromycin, Albuterol and Ipratropium PRN. Pt has 100% O2 sats on room air now. Pt has hx of dementia and chronic confusion. pt may continue to have nurse care and skin care as well. Pt still present urinary retention. Now pt has Hopper. Pt may have Hopper care, and followup with urologist. Pt is prescribed Flomax. pt had Cade's Covid 19 vaccination on 07/26/21 - TIME SPENT Time Spent in Discharge (Minutes): 30
[2021-07-28] MEDS ORDERED: methylPREDNISolone 4 MG TABLET PO ONE (08:00)
== END 2021-07-27 14:10 | DRG 640 ==
LOC: EDUNIT# → ED 17:57 → MS2 21:41 → OBSVTOIN 07-20 13:57
PROVIDERS: ADMIT Internal Medicine; ATTEND Nurse Practitioner Gerontology
DX: R62.7 Adult failure to thrive (principal); E43 Unspecified severe protein-calorie malnutrition; Z68.1 Body mass index [BMI] 19.9 or less, adult; N17.9 Acute kidney failure, unspecified; E87.2 Acidosis; J43.9 Emphysema, unspecified; F03.90 Unspecified dementia, unspecified severity, without behavioral disturbance, psychotic disturbance, mood disturbance, and anxiety; R33.9 Retention of urine, unspecified; R39.11 Hesitancy of micturition; R53.1 Weakness; J44.9 Chronic obstructive pulmonary disease, unspecified; F17.210 Nicotine dependence, cigarettes, uncomplicated; Z20.822 Contact with and (suspected) exposure to COVID-19; R39.15 Urgency of urination; R63.0 Anorexia; R41.0 Disorientation, unspecified; Z89.012 Acquired absence of left thumb; M62.59 Muscle wasting and atrophy, not elsewhere classified, multiple sites; E86.0 Dehydration; T73.0XXA Starvation, initial encounter; X58.XXXA Exposure to other specified factors, initial encounter; E86.1 Hypovolemia; Z66 Do not resuscitate; F10.20 Alcohol dependence, uncomplicated; M25.551 Pain in right hip; M25.552 Pain in left hip; M54.50 Low back pain, unspecified; R07.9 Chest pain, unspecified; R00.0 Tachycardia, unspecified
CPT/HCPCS: 36415; 71045; 73521; 74177; 80048; 80053; 80306; 80307; 81003; 82009; 82140; 82607; 82746; 83690; 83735; 84100; 84443; 85025; 85610; 85730; 87631; 91303; 92523; 93005; 94640; 96361; 96365; 97110; 97162; 97164; 97166; 97168; 97530; 99283; 99285; A9270; G0378; G0480; J1650; J3411; J7120; J7509; Q9967; 0202U; 80320; 80329; 81001; 87086

== ENCOUNTER 2021-07-27 14:15 | Outpatient (CLI) | payer MEDICARE, MEDICAID | END 2021-07-27 23:59 | disposition home or self-care (01) | LOC: EMS 14:15 | PROVIDERS: ATTEND Nurse Practitioner Gerontology | DX: R62.7 Adult failure to thrive (principal); J44.9 Chronic obstructive pulmonary disease, unspecified; Z74.01 Bed confinement status | CPT/HCPCS: A0425; A0428 ==

== ENCOUNTER 2021-08-04 20:19 | Outpatient (CLI) | payer MEDICARE, MEDICAID | END 2021-08-04 20:20 | disposition critical access hospital (66) | LOC: EMS 20:19 | DX: R46.89 Other symptoms and signs involving appearance and behavior (principal); R53.1 Weakness | CPT/HCPCS: A0425; A0429 ==

== ENCOUNTER 2021-08-04 20:24 | Emergency (ER) | payer MEDICARE, MEDICAID ==
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
[2021-08-04 21:11] LABS: BASOPHILS % (AUTO) 0.4 %; EOSINOPHILS # (AUTO) 0.1 10^3/uL (0.0-0.7); EOSINOPHILS % (AUTO) 0.9 %; HCT - HEMATOCRIT 29.1 % (42.0-52.0); LYMPHOCYTES # (AUTO) 0.9 10^3/uL (1.5-3.5); LYMPHOCYTES % (AUTO) 12.2 %; MEAN CORPUSCULAR HEMOGLOBIN 32.2 pg (27.0-31.0); MEAN CORPUSCULAR HGB CONC 34.4 g/dL (32.0-36.0); MEAN CORPUSCULAR VOLUME 93.6 fL (80.0-94.0); MEAN PLATELET VOLUME 9.3 fL (7.4-11.4); MONOCYTES # (AUTO) 1.2 10^3/uL (0.0-1.0); MONOCYTES % (AUTO) 15.5 %; NEUTROPHILS # (AUTO) 5.4 10^3/uL (1.5-6.6); NEUTROPHILS % (AUTO) 70.6 %; PLT - PLATELET COUNT 434 10^3/uL (130-450); RED BLOOD COUNT 3.11 10^6/uL (4.70-6.10); RED CELL DISTRIBUTION WIDTH 18.2 % (12.0-15.0); WHITE BLOOD COUNT 7.6 x10^3/uL (4.8-10.8)
[2021-08-04 21:12] LABS: MUDS CUTOFF CONCENTRATIONS CUTOFF CONC BELOW:
[2021-08-04 21:15] LABS: BILIRUBIN,URINE NEGATIVE (NEGATIVE); GLUCOSE, URINE (UA) NEGATIVE (NEGATIVE); KETONES,URINE (UA) NEGATIVE (NEGATIVE); LEUKOCYTE ESTERASE, URINE SMALL (NEGATIVE); NITRITE,URINE NEGATIVE (NEGATIVE); OCCULT BLOOD,URINE MODERATE (NEGATIVE); PH,URINE 7.5 PH (5.0-7.5); PROTEIN,URINE 30 mg/dL (NEGATIVE); UROBILINOGEN,URINE 0.2 (NORMAL) E.U./dL (NORMAL)
[2021-08-04 21:17] LABS: CLARITY,URINE CLEAR (CLEAR)
[2021-08-04 21:22] LABS: BACTERIA,URINE Moderate /HPF (None Seen); RBC,URINE 0-5 /HPF (0-5); SQUAMOUS EPITHELIAL CELL,UR NONE SEEN (<= Few)
[2021-08-04 21:25] LABS: ALBUMIN 3.2 g/dL (3.2-5.5); ALKALINE PHOSPHATASE 78 IU/L (42-121); ALT ALANINE AMINOTRANSFERASE 31 IU/L (10-60); AST ASPARTATE AMINOTRANSFERASE 34 IU/L (10-42); BILIRUBIN,TOTAL 0.4 mg/dL (0.2-1.0); BUN - BLOOD UREA NITROGEN 22 mg/dL (6-20); CALCIUM 8.7 mg/dL (8.5-10.3); CARBON DIOXIDE - CO2 26 mmol/L (21-32); CHLORIDE 99 mmol/L (101-111); CREATININE 0.6 mg/dL (0.6-1.2); ETOH - ETHANOL < 5.0 mg/dL; GFR - MDRD 134 (>89); GLUCOSE 117 mg/dL (70-100); LIPASE 91 U/L (22-51); POTASSIUM 3.5 mmol/L (3.5-5.0); SODIUM 137 mmol/L (135-145); TOTAL PROTEIN 6.4 g/dL (6.7-8.2)
[2021-08-04 21:25] LABS: AMPHETAMINE SCREEN,URINE NEGATIVE (NEGATIVE); BARBITURATE SCREEN,UR NEGATIVE (NEGATIVE); BENZODIAZEPINES SCREEN, URINE NEGATIVE (NEGATIVE); COCAINE SCREEN URINE NEGATIVE (NEGATIVE); METHADONE SCREEN, URINE NEGATIVE (NEGATIVE); METHAMPHETAMINES SCREEN, URINE NEGATIVE (NEGATIVE); OPIATE SCREEN, URINE NEGATIVE (NEGATIVE); OXYCODONE SCREEN, URINE NEGATIVE (NEGATIVE); PROPOXYPHENE SCREEN, URINE NEGATIVE (NEGATIVE); THC CANNABINOID SCREEN, URINE NEGATIVE (NEGATIVE); TRICYCLIC ANTIDEPRESSANT,URINE NEGATIVE (NEGATIVE)
--- NOTE | 2021-08-04 21:37 | XRAY Report ---
PROCEDURE: Chest 1 View X-Ray INDICATIONS: chest pain TECHNIQUE: One view of the chest was acquired. COMPARISON: 07/26/2021. FINDINGS: Surgical changes and devices: None. Lungs and pleura: Trace right-sided pleural fluid collection which is decreased in size compared to . Left-sided pleural fluid collection has resolved. Focal opacity noted in the right lung bas e which may represent atelectasis or pneumonia. Lungs hyperinflated chest and COPD. Mediastinum: Mediastinal contours appear normal. Heart size is normal. Bones and chest wall: No suspicious bony lesions. Overlying soft tissues appear unremarkable. IMPRESSION: Focal opacity in the right lung base which could represent atelectasis or pneumonia. Trace right-side d pleural fluid collection is decreased in size. Reviewed by: Beckie Butler MD, PhD on 08/04/2021 9:36 PM PDT Approved by: Beckie Butler MD, PhD on 08/04/2021 9:36 PM PDT Station ID: [id number]
[2021-08-05] MEDS ORDERED: CIPROFLOXACIN 400 MG/200 ML 400 MG/200 ML BAG IV STA (05:19)
[2021-08-05] MEDS ORDERED: OLANZapine ODT 5 MG TABLET TL STA (05:43)
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
[2021-08-05 20:37] VITALS: BP 160/114
[2021-08-05] MEDS ORDERED: OLANZapine ODT 5 MG TABLET TL SCH (21:00)
[2021-08-05] MEDS ORDERED: CIPROFLOXACIN 250 MG TABLET PO SCH (21:00)
[2021-08-06] MEDS ORDERED: OLANZapine ODT 5 MG TABLET TL STA (00:30)
[2021-08-06] MEDS ORDERED: SERTRALINE 50 MG TABLET PO SCH (09:00)
== END 2021-08-06 08:44 | disposition home or self-care (01) ==
LOC: EDUNIT# → ED 20:24
DX: T83.511A Infection and inflammatory reaction due to indwelling urethral catheter, initial encounter (principal); Y73.8 Miscellaneous gastroenterology and urology devices associated with adverse incidents, not elsewhere classified; N30.01 Acute cystitis with hematuria; F03.91 Unspecified dementia, unspecified severity, with behavioral disturbance
CPT/HCPCS: 36415; 71045; 80053; 80306; 81001; 83690; 84443; 85025; 87077; 87086; 87181; 96365; 99281; 99284; A9270; G0426; G0480; Q3014; 80320; 81003; 90836

== ENCOUNTER 2021-08-06 08:44 | Outpatient (CLI) | payer MEDICARE, MEDICAID | END 2021-08-06 08:45 | disposition home or self-care (01) | LOC: EMS 08:44 | PROVIDERS: ATTEND Emergency Medicine | DX: R41.0 Disorientation, unspecified (principal); N39.0 Urinary tract infection, site not specified; R46.89 Other symptoms and signs involving appearance and behavior | CPT/HCPCS: A0425; A0428 ==

== ENCOUNTER 2021-09-01 19:08 | Outpatient (CLI) | payer MEDICARE, MEDICAID ==
[2021-09-01 20:24] LABS: BILIRUBIN,URINE NEGATIVE (NEGATIVE); GLUCOSE, URINE (UA) NEGATIVE (NEGATIVE); KETONES,URINE (UA) NEGATIVE (NEGATIVE); LEUKOCYTE ESTERASE, URINE SMALL (NEGATIVE); NITRITE,URINE POSITIVE (NEGATIVE); OCCULT BLOOD,URINE LARGE (NEGATIVE); PROTEIN,URINE 100 mg/dL (NEGATIVE); UROBILINOGEN,URINE 0.2 (NORMAL) E.U./dL (NORMAL)
[2021-09-01 20:26] LABS: CLARITY,URINE CLEAR (CLEAR)
[2021-09-01 20:35] LABS: BACTERIA,URINE Rare /HPF (None Seen); SQUAMOUS EPITHELIAL CELL,UR RARE Squamous (<= Few)
== END 2021-09-01 23:59 | disposition home or self-care (01) ==
LOC: LAB.R 19:08
DX: N39.0 Urinary tract infection, site not specified (principal); N13.0 Hydronephrosis with ureteropelvic junction obstruction; R33.9 Retention of urine, unspecified
CPT/HCPCS: 81001; 81003; 87077; 87086

== ENCOUNTER 2021-09-02 16:17 | Outpatient (CLI) | payer MEDICARE, MEDICAID | END 2021-09-02 16:18 | disposition critical access hospital (66) | LOC: EMS 16:17 | DX: R41.82 Altered mental status, unspecified (principal); S09.90XA Unspecified injury of head, initial encounter; W06.XXXA Fall from bed, initial encounter; Y92.122 Bedroom in nursing home as the place of occurrence of the external cause | CPT/HCPCS: A0425; A0429 ==

== ENCOUNTER 2021-09-02 16:24 | Observation (INO) | payer MEDICARE, MEDICAID ==
[2021-09-02] MEDS ORDERED: NALOXONE 0.4 MG/ML VIAL IVP STA (16:29)
--- NOTE | 2021-09-02 16:32 | ED Physician Documentation ---
PD HPI ALTERED MENTAL STATUS - Stated complaint Stated Complaint: GLF - History obtained from History obtained from: EMS - Additional information Additional information: 66-year-old gentleman with history of COPD, alcoholic encephalopathy presents by ambulance from SNF. Reportedly his recent baseline is pretty much bedbound with some level of confusion and Hopper in place. He fell out of bed, unwitnessed potentially hitting his head and now is quite altered. He is unable to provide a history, all of the history is from chart review and EMS. He is DNR/DNI according to paperwork. Review of Systems Unable to obtain: AMS PD PAST MEDICAL HISTORY - Past Medical History Cardiovascular: None Respiratory: COPD Neuro: Dementia Endocrine/Autoimmune: None Musculoskeletal: Osteoarthritis - Past Surgical History Ortho: Amputation - Present Medications Home Medications: Ambulatory Orders Medication Instructions Recorded Confirmed Albuterol Sulfate [Proair Hfa 2 puffs INH Q4H PRN #1 inh 07/27/21 09/02/21 Inhaler] Ipratropium [Atrovent] 1 puffs INH Q6H PRN #1 inh 07/27/21 09/02/21 Multivitamin W/Minerals [Theragran 1 tab PO DAILYWM #30 tablet 07/27/21 09/02/21 M] Tamsulosin [Flomax] 0.4 mg PO HS #30 cap 07/27/21 09/02/21 Thiamine [Vitamin B-1] 100 mg PO DAILY #30 tablet 07/27/21 09/02/21 polyethylene glycoL 3350 [Miralax] 17 gm PO DAILY PRN 08/04/21 09/02/21 OLANZapine ODT [Zyprexa Odt] 5 mg TL HS #30 tablet 08/06/21 09/02/21 Sertraline [Zoloft] 50 mg PO DAILY #30 tablet 08/06/21 09/02/21 Acetaminophen [Tylenol] 650 mg PO Q6H PRN 09/02/21 09/02/21 Divalproex [Stephie Pacheco] 250 mg PO BID 09/02/21 09/02/21 Nicotine 14 mg Patch [Nicoderm] 1 each TOP Q24H 09/02/21 09/02/21 diazePAM [Valium] 5 mg PO BID PRN 09/02/21 09/02/21 hydroCHLOROthiazide [Hydrodiuril] 25 mg PO DAILY 09/02/21 09/02/21 - Allergies Allergies/Adverse Reactions: Allergies Allergy/AdvReac Type Severity Reaction Status Date / Time Influenza Virus Vaccines Allergy Unknown Verified 09/02/21 16:35 Penicillins Allergy Anaphylaxis Verified 09/02/21 16:35 - Social History Does the pt smoke?: Yes Smoking Status: Current every day smoker Does the pt drink ETOH?: Yes Does the pt have substance abuse?: No - Immunizations Immunizations: TDAP >10years/unknown - POLST Patient has POLST: No PD ED PE NORMAL - Vitals Vital signs reviewed: Yes - General General: Other (He is laying in bed in no distress, breathing comfortably.) - HEENT HEENT: Other (Pupils are equally round and reactive, he is not following commands so unable to check extraocular movements) - Neck Neck: No bony TTP (But maintained in a c-collar pending imaging given altered mental status) - Cardiac Cardiac: RRR, No murmur - Respiratory Respiratory: No respiratory distress, Clear bilaterally - Abdomen Abdomen: Normal bowel sounds, Soft, Non tender - Male Male : Other (Hopper in place) - Back Back: No CVA TTP, No spinal TTP - Derm Derm: Normal color, Warm and dry - Extremities Extremities: No edema, No calf tenderness / cord - Neuro Eye Opening: None Motor: Withdraws to Pain Verbal: None GCS Score: 6 Results - Vitals Vitals: Vital Signs - 24 hr 09/02/21 09/02/21 16:30 17:00 Temperature 35.8 C L 36.5 C Heart Rate 92 92 Respiratory 12 12 Rate Blood Pressure 136/87 H 122/77 O2 Saturation 98 97 Oxygen O2 Source Room air - Labs Labs: Laboratory Tests 09/02/21 09/02/21 09/02/21 16:33 16:33 16:33 WBC 7.6 RBC 3.46 L Hgb 11.1 L Hct 31.8 L MCV 91.9 MCH 32.1 H MCHC 34.9 RDW 14.3 Plt Count 406 MPV 9.2 Neut # (Auto) 4.7 Lymph # (Auto) 1.3 L Addison # (Auto) 1.4 H Eos # (Auto) 0.2 Baso # (Auto) 0.0 Absolute Nucleated RBC 0.00 Nucleated RBC % 0.0 PT INR Sodium 125 L Potassium 3.7 Chloride 80 L* Carbon Dioxide 32 Anion Gap 13.0 BUN 35 H Creatinine 0.6 Estimated GFR (MDRD) 134 Glucose 87 Calcium 9.7 Total Bilirubin 0.3 AST 28 ALT 21 Alkaline Phosphatase 74 Total Protein 7.2 Albumin 3.7 Globulin 3.5 Albumin/Globulin Ratio 1.1 Lipase 197 H TSH 3.71 Urine Color Urine Clarity Urine pH Ur Specific Empire Urine Protein Urine Glucose (UA) Urine Ketones Urine Occult Blood Urine Nitrite Urine Bilirubin Urine Urobilinogen Ur Leukocyte Esterase Urine RBC Urine WBC Ur Squamous Epith Cells Urine Crystals Urine Bacteria Ur Microscopic Review Urine Culture Comments Last Dose Date Last Dose Time Salicylates < 6.0 Urine Opiates Screen Ur Oxycodone Screen Urine Methadone Screen Ur Propoxyphene Screen Acetaminophen < 10 L Ur Barbiturates Screen Valproic Acid Ur Tricyclics Screen Ur Phencyclidine Scrn Ur Amphetamine Screen U Methamphetamines Scrn U Benzodiazepines Scrn Urine Cocaine Screen U Cannabinoids Screen Ethyl Alcohol < 5.0 SARS-CoV-2 (PCR) 09/02/21 09/02/21 09/02/21 16:33 16:33 16:49 WBC RBC Hgb Hct MCV MCH MCHC RDW Plt Count MPV Neut # (Auto) Lymph # (Auto) Addison # (Auto) Eos # (Auto) Baso # (Auto) Absolute Nucleated RBC Nucleated RBC % PT 10.9 INR 1.0 Sodium Potassium Chloride Carbon Dioxide Anion Gap BUN Creatinine Estimated GFR (MDRD) Glucose Calcium Total Bilirubin AST ALT Alkaline Phosphatase Total Protein Albumin Globulin Albumin/Globulin Ratio Lipase TSH Urine Color YELLOW Urine Clarity CLOUDY Urine pH >=9.0 H Ur Specific Empire 1.010 Urine Protein 100 H Urine Glucose (UA) NEGATIVE Urine Ketones NEGATIVE Urine Occult Blood LARGE H Urine Nitrite NEGATIVE Urine Bilirubin NEGATIVE Urine Urobilinogen 0.2 (NORMAL) Ur Leukocyte Esterase SMALL H Urine RBC TNTC H Urine WBC 6-10 H Ur Squamous Epith Cells FEW Squamous Urine Crystals 26-50 Triple Phos Urine Bacteria Moderate H Ur Microscopic Review INDICATED Urine Culture Comments INDICATED Last Dose Date Not Reportable Last Dose Time Not Reportable Salicylates Urine Opiates Screen NEGATIVE Ur Oxycodone Screen NEGATIVE Urine Methadone Screen NEGATIVE Ur Propoxyphene Screen NEGATIVE Acetaminophen Ur Barbiturates Screen NEGATIVE Valproic Acid 52.3 Ur Tricyclics Screen NEGATIVE Ur Phencyclidine Scrn NEGATIVE Ur Amphetamine Screen NEGATIVE U Methamphetamines Scrn NEGATIVE U Benzodiazepines Scrn POSITIVE H Urine Cocaine Screen NEGATIVE U Cannabinoids Screen NEGATIVE Ethyl Alcohol SARS-CoV-2 (PCR) 09/02/21 17:26 WBC RBC Hgb Hct MCV MCH MCHC RDW Plt Count MPV Neut # (Auto) Lymph # (Auto) Addison # (Auto) Eos # (Auto) Baso # (Auto) Absolute Nucleated RBC Nucleated RBC % PT INR Sodium Potassium Chloride Carbon Dioxide Anion Gap BUN Creatinine Estimated GFR (MDRD) Glucose Calcium Total Bilirubin AST ALT Alkaline Phosphatase Total Protein Albumin Globulin Albumin/Globulin Ratio Lipase TSH Urine Color Urine Clarity Urine pH Ur Specific Empire Urine Protein Urine Glucose (UA) Urine Ketones Urine Occult Blood Urine Nitrite Urine Bilirubin Urine Urobilinogen Ur Leukocyte Esterase Urine RBC Urine WBC Ur Squamous Epith Cells Urine Crystals Urine Bacteria Ur Microscopic Review Urine Culture Comments Last Dose Date Last Dose Time Salicylates Urine Opiates Screen Ur Oxycodone Screen Urine Methadone Screen Ur Propoxyphene Screen Acetaminophen Ur Barbiturates Screen Valproic Acid Ur Tricyclics Screen Ur Phencyclidine Scrn Ur Amphetamine Screen U Methamphetamines Scrn U Benzodiazepines Scrn Urine Cocaine Screen U Cannabinoids Screen Ethyl Alcohol SARS-CoV-2 (PCR) NOT DETECTED - Rads (name of study) CT head and cervical spine are unremarkable, collar removed at 5:05 PM Radiology: EMP read contemporaneously PD MEDICAL DECISION MAKING - ED course ED course: 66-year-old gentleman with multiple comorbidities and DNR/DNI presents obtunded after potential head injury. CT imaging of the head and neck were unremarkable. He did have some improvement here. We tried Narcan which did not do much. Also tried Haldol wondering if this was a conversion disorder. He did wake up a bit during his Emergency department stay but still not back to his baseline. His sodium is fairly low and this is an acute drop which may be contributing. Spoke with Dr. Guillen for observation at 5:23 PM. He did seem to respond somewhat, may be just a time and we tried the Haldol which may have helped as well. Prior to admission but after orders were written he did briefly drop his pressures to the 60/40 range and was not mentating well. This responded to IV fluid bolus and his blood pressure after this was 108/77 bedside ultrasonography was done with negative fast scan showing no hemoperitoneum or pericardial effusion, hyperdynamic if anything cardiac squeeze. Urinalysis noted, doubt infection given lack of urinary symptoms and indwelling Hopper and normal white count. - Critical Care Time(min): 35 Time Includes: Direct patient care, Review records, Reassess patient, Document care, Coordinate care, Medical consult Data interpretation: Labs, Pulse ox Departure - Departure Disposition: ED Place in Observation Clinical Impression: Transient hypotension, Acute hyponatremia, DNI (do not intubate), DNR (do not resuscitate) Altered mental status Qualifiers: Altered mental status type: disorientation Qualified Code(s): R41.0 - Diso rientation, unspecified Condition: Serious
[2021-09-02 16:38] LABS: BASOPHILS % (AUTO) 0.4 %; EOSINOPHILS # (AUTO) 0.2 10^3/uL (0.0-0.7); HCT - HEMATOCRIT 31.8 % (42.0-52.0); HGB - HEMOGLOBIN 11.1 g/dL (14.0-18.0); LYMPHOCYTES # (AUTO) 1.3 10^3/uL (1.5-3.5); LYMPHOCYTES % (AUTO) 16.9 %; MEAN CORPUSCULAR HEMOGLOBIN 32.1 pg (27.0-31.0); MEAN CORPUSCULAR HGB CONC 34.9 g/dL (32.0-36.0); MEAN CORPUSCULAR VOLUME 91.9 fL (80.0-94.0); MEAN PLATELET VOLUME 9.2 fL (7.4-11.4); MONOCYTES # (AUTO) 1.4 10^3/uL (0.0-1.0); MONOCYTES % (AUTO) 17.9 %; NEUTROPHILS # (AUTO) 4.7 10^3/uL (1.5-6.6); NEUTROPHILS % (AUTO) 62.4 %; PLT - PLATELET COUNT 406 10^3/uL (130-450); RED BLOOD COUNT 3.46 10^6/uL (4.70-6.10); RED CELL DISTRIBUTION WIDTH 14.3 % (12.0-15.0); WHITE BLOOD COUNT 7.6 x10^3/uL (4.8-10.8)
[2021-09-02 16:54] LABS: MUDS CUTOFF CONCENTRATIONS CUTOFF CONC BELOW:
--- NOTE | 2021-09-02 16:54 | CT Report ---
PROCEDURE: HEAD WO INDICATIONS: head injury, AMS TECHNIQUE: Noncontrast 4.5 mm thick angled axial sections acquired from the foramen magnum to the vertex. For r adiation dose reduction, the following was used: automated exposure control, adjustment of mA and/or kV according to patient size. COMPARISON: None. FINDINGS: BRAIN PARENCHYMA: Moderate matter hypoattenuation, compatible with the sequela microvascular ischemia . No acute cortical based (large territory) infarction, intracranial hemorrhage, mass or mass effect, or abnormal fluid collection. The density in the larger dural venous sinuses is grossly normal. VENTRICLES: Prominence of the ventricles and cortical sulci, most consistent with age-related atrophy . BONES/SINUSES: The skull base and calvarium demonstrate no acute abnormality. The paranasal sinuses a nd mastoid air cells are well aerated. IMPRESSION: 1.No acute intracranial abnormality. Reviewed by: Judson Benitez MD on 09/02/2021 4:53 PM PDT Approved by: Judson Benitez MD on 09/02/2021 4:53 PM PDT Station ID: [id number]
[2021-09-02 16:56] LABS: BILIRUBIN,URINE NEGATIVE (NEGATIVE); GLUCOSE, URINE (UA) NEGATIVE (NEGATIVE); KETONES,URINE (UA) NEGATIVE (NEGATIVE); LEUKOCYTE ESTERASE, URINE SMALL (NEGATIVE); NITRITE,URINE NEGATIVE (NEGATIVE); OCCULT BLOOD,URINE LARGE (NEGATIVE); PH,URINE >=9.0 PH (5.0-7.5); PROTEIN,URINE 100 mg/dL (NEGATIVE); UROBILINOGEN,URINE 0.2 (NORMAL) E.U./dL (NORMAL)
--- NOTE | 2021-09-02 16:57 | CT Report ---
PROCEDURE: CERVICAL SPINE WO INDICATIONS: head injury, AMS TECHNIQUE: Noncontrast 3 mm thick sections acquired from the skull base to the T4 level. Sagittal and coronal r eformats were then constructed. For radiation dose reduction, the following was used: automated exp osure control, adjustment of mA and/or kV according to patient size. COMPARISON: None. FINDINGS: CT CERVICAL SPINE: No acute, displaced fracture or retropulsion. Minimal grade 1 anterolisthesis at C 2-3 and C7-T1, measuring up to 2.5 mm. Retrolisthesis at C4-6, measuring up to 2.7 mm. The vertebral body heights are maintained. No aggressive osseous lesions are identified. Mild to moderate disc heig ht loss with posterior disc osteophyte complexes, most prominent at C4-5 and C6-7. The central canal diameter is preserved. SOFT TISSUES: The prevertebral and paraspinal soft tissues demonstrate no abnormality. LUNG APICES/THYROID: Biapical pleural thickening/scarring. The thyroid is homogeneous. IMPRESSION: 1.No acute osseous abnormality of the cervical spine. Reviewed by: Judson Benitez MD on 09/02/2021 4:56 PM PDT Approved by: Judson Benitez MD on 09/02/2021 4:56 PM PDT Station ID: [id number]
[2021-09-02 17:00] LABS: ACETAMINOPHEN < 10 ug/mL (10-30); ALBUMIN 3.7 g/dL (3.2-5.5); ALBUMIN/GLOBULIN RATIO 1.1 (1.0-2.2); ALKALINE PHOSPHATASE 74 IU/L (42-121); ALT ALANINE AMINOTRANSFERASE 21 IU/L (10-60); AST ASPARTATE AMINOTRANSFERASE 28 IU/L (10-42); BILIRUBIN,TOTAL 0.3 mg/dL (0.2-1.0); BUN - BLOOD UREA NITROGEN 35 mg/dL (6-20); CALCIUM 9.7 mg/dL (8.5-10.3); CARBON DIOXIDE - CO2 32 mmol/L (21-32); CREATININE 0.6 mg/dL (0.6-1.2); ETOH - ETHANOL < 5.0 mg/dL; GFR - MDRD 134 (>89); GLUCOSE 87 mg/dL (70-100); LIPASE 197 U/L (22-51); POTASSIUM 3.7 mmol/L (3.5-5.0); SALICYLATE < 6.0 mg/dL; SODIUM 125 mmol/L (135-145); TOTAL PROTEIN 7.2 g/dL (6.7-8.2)
[2021-09-02 17:01] LABS: CHLORIDE 80 mmol/L (101-111)
[2021-09-02 17:02] LABS: VALPROIC ACID (DEPAKOTE) 52.3 ug/mL
[2021-09-02] MEDS ORDERED: HALOPERIDOL 5 MG/ML VIAL IVP ONE (17:05)
[2021-09-02] MEDS ORDERED: SODIUM CHLORIDE 0.9% 1,000 ML IV STA ×2 (17:06→18:11)
[2021-09-02 17:07] LABS: CLARITY,URINE CLOUDY (CLEAR)
[2021-09-02 17:08] LABS: AMPHETAMINE SCREEN,URINE NEGATIVE (NEGATIVE); BARBITURATE SCREEN,UR NEGATIVE (NEGATIVE); BENZODIAZEPINES SCREEN, URINE POSITIVE (NEGATIVE); COCAINE SCREEN URINE NEGATIVE (NEGATIVE); METHADONE SCREEN, URINE NEGATIVE (NEGATIVE); METHAMPHETAMINES SCREEN, URINE NEGATIVE (NEGATIVE); OPIATE SCREEN, URINE NEGATIVE (NEGATIVE); OXYCODONE SCREEN, URINE NEGATIVE (NEGATIVE); PROPOXYPHENE SCREEN, URINE NEGATIVE (NEGATIVE); THC CANNABINOID SCREEN, URINE NEGATIVE (NEGATIVE); TRICYCLIC ANTIDEPRESSANT,URINE NEGATIVE (NEGATIVE)
[2021-09-02 17:16] LABS: RBC,URINE TNTC /HPF (0-5)
[2021-09-02 17:17] LABS: BACTERIA,URINE Moderate /HPF (None Seen); SQUAMOUS EPITHELIAL CELL,UR FEW Squamous (<= Few)
[2021-09-02 17:23] LABS: PT - PROTHROMBIN TIME 10.9 secs (9.9-12.6)
[2021-09-02] MEDS ORDERED: ONDANSETRON ODT 4 MG TABLET TL PRN (17:46)
[2021-09-02] MEDS ORDERED: SODIUM CHLORIDE FLUSH 0.9% 10 ML SYRINGE IVP PRN (17:46)
[2021-09-02] MEDS ORDERED: ACETAMINOPHEN 325 MG TABLET PO PRN (17:46)
--- NOTE | 2021-09-02 17:52 | HISTORY & PHYSICAL EXAMINATION ---
Chief Complaint - Chief Complaint Chief Complaint: I do not know why I'm here History of Present Illness - Admitted From Admitted From:: [facility] - History Obtained From Records Reviewed: [facility] History obtained from: Patient, ER Physician, EMR Exam Limitations: Patient has dementia and is still somewhat altered so is an unreliable hist - History of Present Illness HPI Comment/Other: This is a 66-year-old male with a past medical history significant for COPD, dementia, BPH with chronic indwelling Hopper catheter who presents today from [facility] after an unwitnessed fall. He has been at [facility] for the past month and has dementia at baseline and does not appear to be very functional from a physical standpoint and is predominantly bedbound. Reportedly he had an unwitnessed fall today where he hit his head. He was reportedly talking right after the fall but then became unresponsive and so he was brought to the emergency department. He is now a little more awake and able to revive me a limited history given his dementia. He states that he believes he is in the ambulance and does not know why he is here. He thinks he may have fallen but he is not sure. He denies any head pain. He is thinks his appetite and oral intake has been adequate. He denies any chest pain or dyspnea. He is not sure if he passed out or not. In the emergency department, labs reveal a sodium of 125 and a chloride of 80. He underwent CT of the head and cervical spine which showed no acute abnormalities. He is already a little more alert and able to participate in a conversation somewhat. He was started on IV fluids. Given his altered mental status and the hyponatremia, medicine was consulted for admission. He does have a POLST form which confirms he is a DNR with limited interventions. History - Past Medical History Cardiovascular: reports: None Respiratory: reports: COPD Neuro: reports: Dementia Endocrine/Autoimmune: reports: None : reports: Benign prostate hypertrophy, Indwelling catheter Musculoskeletal: reports: Osteoarthritis - Past Surgical History Ortho: reports: Amputation - Family & Social History Family History Comment/Other: Review of records reveal the patient denied any family history in the past. This is limited due to his dementia. Living arrangement: alf Social History Notes: He now resides at [facility]. He was previously living alone in the [facility]. He smoked a pack a day for 40 years. He admits to drinking a sixpack of beer on a daily basis. - POLST Patient has POLST: No Meds/Allgy - Home Medications Home Medications: Ambulatory Orders Medication Instructions Recorded Confirmed Albuterol Sulfate [Proair Hfa 2 puffs INH Q4H PRN #1 inh 07/27/21 08/04/21 Inhaler] Ipratropium [Atrovent] 1 puffs INH Q6H PRN #1 inh 07/27/21 08/04/21 Multivitamin W/Minerals [Theragran 1 tab PO DAILYWM #30 tablet 07/27/21 08/04/21 M] Tamsulosin [Flomax] 0.4 mg PO HS #30 cap 07/27/21 08/04/21 Thiamine [Vitamin B-1] 100 mg PO DAILY #30 tablet 07/27/21 08/04/21 polyethylene glycoL 3350 [Miralax] 1 amp PO PRN PRN 08/04/21 08/04/21 OLANZapine ODT [Zyprexa Odt] 5 mg TL HS #30 tablet 08/06/21 Sertraline [Zoloft] 50 mg PO DAILY #30 tablet 08/06/21 Acetaminophen [Tylenol] 650 mg PO Q6H PRN 09/02/21 09/02/[address] [Stephie Pacheco] 250 mg PO BID 09/02/21 09/02/21 Nicotine 14 mg Patch [Nicoderm] 1 each TOP Q24H 09/02/21 09/02/21 diazePAM [Valium] 5 mg PO BID PRN 09/02/21 09/02/21 hydroCHLOROthiazide [Hydrodiuril] 25 mg PO DAILY 09/02/21 09/02/21 - Allergies Allergies/Adverse Reactions: Allergies Allergy/AdvReac Type Severity Reaction Status Date / Time Influenza Virus Vaccines Allergy Unknown Verified 09/02/21 16:35 Penicillins Allergy Anaphylaxis Verified 09/02/21 16:35 Review of Systems - Constitutional Constitutional: denies: Fever, Chills - Eyes Eyes: denies: Blurred vision, Vision loss - Cardiovascular Cariovascular: denies: Chest pain, Lightheadedness, Exertional dyspnea, Decr. exercise tolerance - Respiratory Respiratory: denies: Cough, SOB at rest, SOB with exertion - Gastrointestinal Gastrointestinal: denies: Abdominal pain - Musculoskeletal Musculoskeletal: denies: Muscle pain, Muscle weakness - Neurological Neurological: denies: Dizziness - All Other Systems All Other Systems: reports: Other (He answered no to all review of systems but given his dementia, I am not sure how accurate this is.) Prior Level of Functionality: He is dependent on his ADLs. Exam - Vital Signs Reviewed Vital Signs: Yes Vital Signs: Vital Signs x48h Temp Pulse Resp BP Pulse Ox 09/02/21 17:00 36.5 C 92 12 122/77 97 09/02/21 16:30 35.8 C L 92 12 136/87 H 98 - Physical Exam General Appearance: positive: Other (He is awake but answers questions slowly. There is a small hematoma approximately 4 x 3 cm over his forehead.) Eyes Bilateral: positive: PERRL, Conjunctivae nml ENT: positive: Dry mucous membranes. negative: No signs of dehydration Neck: positive: Nml inspection Respiratory: positive: No respiratory distress. negative: Wheezes, Rales Cardiovascular: positive: Regular rate & rhythm, No murmur. negative: Tachycardia Abdomen: positive: Non-tender, No distention. negative: Tenderness Rectal: positive: Other (Hopper catheter in place) Skin: positive: Warm, Dry, Other (He has evidence of dry skin predominantly in his lower extremities with flaking.) Extremities: positive: No pedal edema Neurologic/Psychiatric: positive: Disoriented to place, Disoriented to time, Other (He is only oriented to self but not to location or time. He is able to move all 4 extremities without any obvious focal deficits). negative: Disoriented to person Conclusion/Plan - Problem List (1) Altered mental status Conclusion/Plan: He is now a little more alert since arrival to the emergency department but is still lethargic and not very conversant. This may be related to the hyponatremia or potentially due to delirium from the medications he received such as Valium. He is on Depakote and has a history of alcoholism so we will check an ammonia level. We will hold all sedatives for the time being. We will start him on IV fluids to treat the hyponatremia. Imaging revealed no acute abnormalities. We will monitor on telemetry and check orthostatics given his fall given he is unreliable historian and is unclear if he had a syncopal episode or not. We will also obtain an EKG. Continue oral thiamine. Qualifiers: Altered mental status type: disorientation Qualified Code(s): R41.0 - Disorientation, unspecified (2) Hyponatremia Conclusion/Plan: It is unclear if is the cause of mental status or an incidental finding. He does appear quite hypovolemic on exam and his sodium is decreased at 125. We will check urine sodium and urine chloride. We will start him on normal saline at 100 mL an hour. We will recheck a sodium this evening at 10 PM and once again in the morning. Suspect he can be discharged back to [facility] in the morning if his sodium is greater than 130 and his mentation is improved. (3) Dementia Conclusion/Plan: It appears that he is on Depakote at [facility]. He also receives Valium as needed. We will check an ammonia level given his history of a lcoholism and the fact that he is on Depakote. We will look to resume the Depakote tomorrow if his more level is within normal limits. He will ultimately be discharged back to [facility] once medically stable. (4) Chronic indwelling Hopper catheter Conclusion/Plan: We will keep the catheter in place and resume Flomax. (5) COPD (chronic obstructive pulmonary disease) Conclusion/Plan: This is not an exacerbation. We will continue with albuterol as needed. Qualifiers: COPD type: emphysema Emphysema type: unspecified Qualified Code(s): J43.9 - Emphysema, unspecified - Lab Results Lab results reviewed: Yes Fish Bones: 09/02/21 16:33 09/02/21 16:33 - Diagnostic Imaging Results Diagnostic Imaging Results: positive: Final report reviewed Core Measures - Anticipated LOS I expect patient to be DC'd or transferred within 96 hours.: Yes - Issues Hospital Issues and Management Plan: 66-year-old male with history of dementia presents emergency of [place] after an unwitnessed fall and later became unresponsive. Found to be hyponatremic and altered. Will place in observation for IV hydration. - DVT/VTE - Prophylaxis VTE/DVT Device ordered at admit?: Yes VTE/DVT Prophylaxis med ordered at admit?: No
--- NOTE | 2021-09-02 18:41 | PHARMACY PROGRESS NOTE ---
- Best Possible Medication History Admit Date and Time: 09/02/21 1746 Processed by: Pharmacy Medication History completed: Yes Secondary Source(s): Facility MAR as ONLY source As the person ultimately responsible for medication therapy, providers are able to order a medication from an existing home medication list in [facility] via the "Reconcile Routine" prior to Confirmation of that medication by support team assoc. Such practice is discouraged except when the physician, in their clinical judgment, deems that a medical need exists for a medication without regard to previous use.
[2021-09-02] MEDS: SODIUM CHLORIDE 0.9% 1,000 ML IV SCH (19:30)
[2021-09-02] MEDS ORDERED: TAMSULOSIN 0.4 MG CAPSULE PO SCH (21:00)
[2021-09-02 21:21] LABS: CREATININE 0.6 mg/dL (0.6-1.2); POTASSIUM 3.9 mmol/L (3.5-5.0)
[2021-09-03] MEDS: SODIUM CHLORIDE FLUSH 0.9% 10 ML SYRINGE IVP SCH ×2 (00:01→09:44)
[2021-09-03] MEDS: SODIUM CHLORIDE 0.9% 1,000 ML IV SCH (03:33)
[2021-09-03 05:19] LABS: BASOPHILS % (AUTO) 0.5 %; EOSINOPHILS # (AUTO) 0.2 10^3/uL (0.0-0.7); EOSINOPHILS % (AUTO) 2.3 %; HCT - HEMATOCRIT 30.1 % (42.0-52.0); HGB - HEMOGLOBIN 10.6 g/dL (14.0-18.0); LYMPHOCYTES # (AUTO) 1.3 10^3/uL (1.5-3.5); LYMPHOCYTES % (AUTO) 19.5 %; MEAN CORPUSCULAR HEMOGLOBIN 32.3 pg (27.0-31.0); MEAN CORPUSCULAR HGB CONC 35.2 g/dL (32.0-36.0); MEAN CORPUSCULAR VOLUME 91.8 fL (80.0-94.0); MEAN PLATELET VOLUME 10.2 fL (7.4-11.4); MONOCYTES # (AUTO) 1.1 10^3/uL (0.0-1.0); MONOCYTES % (AUTO) 17.3 %; NEUTROPHILS # (AUTO) 3.9 10^3/uL (1.5-6.6); NEUTROPHILS % (AUTO) 60.1 %; PLT - PLATELET COUNT 387 10^3/uL (130-450); RED BLOOD COUNT 3.28 10^6/uL (4.70-6.10); RED CELL DISTRIBUTION WIDTH 14.2 % (12.0-15.0); WHITE BLOOD COUNT 6.5 x10^3/uL (4.8-10.8)
[2021-09-03 05:24] LABS: CALCIUM 9.4 mg/dL (8.5-10.3); CREATININE 0.5 mg/dL (0.6-1.2); POTASSIUM 3.3 mmol/L (3.5-5.0)
[2021-09-03] MEDS ORDERED: POTASSIUM CHLORIDE 20 MEQ TABLET PO ONE (07:44)
[2021-09-03 08:24] VITALS: BP 132/64
[2021-09-03] MEDS ORDERED: THIAMINE 100 MG TABLET PO SCH (09:00)
--- NOTE | 2021-09-03 10:18 | Discharge Plan ---
"Discharge Plan for SNF / [facility] - Discharge Plan And Transition Orders Problem Reviewed?: Yes Disposition: 03 SNF DC/Xfer Condition: Stable Allergies and Adverse Reactions: Allergies Allergy/AdvReac Type Severity Reaction Status Date / Time Influenza Virus Vaccines Allergy Unknown Verified 09/02/21 16:35 Penicillins Allergy Anaphylaxis Verified 09/02/21 16:35 Health Concerns: The patient was admitted given his alternative status and hyponatremia. The cause of his altered mental status was not clear but shortly after admission, his mentation improved and he returned to his baseline. He does have dementia but is oriented to person. He is not oriented to location, year, month but this appears to be his baseline. His hyponatremia was felt to be hypovolemic hyponatremia secondary to the use of hydrochlorothiazide. This was held and he was treated with normal saline. His sodium is improved to 128. This should continue to improve as we have now discontinued the thiazide. We did monitor on telemetry given the fall but there was no evidence of arrhythmia. His troponin was normal. We did check an ammonia level given he is on Depakote but this was also within normal limits. He is now stable for discharge back to [facility]. Plan of Treatment: We recommend discontinuing the hydrochlorothiazide. There were no other changes made to his medications. He should have a BMP next week to ensure his sodium is stable. - SNF / [facility] Transition Orders Admit to (Facility): [facility] Discharge Diagnosis: Altered mental status - resolved. Hyponatremia - improved. Dementia - stable. Chronic indwelling Hopper catheter - stable. COPD - stable. Other Notification Orders: Call PCP immediately if patient develops dyspnea, chest pain/tightness or edema. Additional Bowel Program Orders: If no BM after 2 days, nurse may give M.O.M. 30ml PO PRN and/or ducolax Supp 1 [place] and/or IQRA 250mg P.O., and/or senna 1-2 tabs PO. On day 3 nurse may give repeat above order until residents constipation is resolved. Medication Orders: PLEASE REFER TO THE DISCHARGE MEDICATION LIST. - Diet Type: Geriatric Texture: Regular Liquids: Thin - Therapies | Activity Activity: Activity as Tolerated Weight Bearing: Full Weight Follow Up: He will need follow-up within the week to ensure his sodium stable."
--- NOTE | 2021-09-03 10:23 | DISCHARGE SUMMARY ---
Discharge Summary Admit Date: 09/02/21 Discharge Date: 09/03/21 Discharging Provider: Richy Guillen Primary Care Provider: Lj Grover Code Status: Do Not Attempt Resuscitation Condition at Discharge: Stable Discharge Disposition: SNF DC/Xfer Discharge Facility Name: [facility] - DIAGNOSES Admission Diagnoses: Altered mental status Hyponatremia Dementia Chronic indwelling spangler catheter COPD Discharge Diagnoses with Status of Each Condition: Altered mental status - resolved. Hyponatremia - improved. Dementia - stable. Chronic indwelling Spangler catheter - stable. COPD - stable. - HPI History of Present Illness: This is a 66-year-old male with a past medical history significant for COPD, dementia, BPH with chronic indwelling Spangler catheter who presents today from [facility] after an unwitnessed fall. He has been at [facility] for the p ast month and has dementia at baseline and does not appear to be very functional from a physical standpoint and is predominantly bedbound. Reportedly he had an unwitnessed fall today where he hit his head. He was reportedly talking right after the fall but then became unresponsive and so he was brought to the emergency department. He is now a little more awake and able to revive me a limited history given his dementia. He states that he believes he is in the ambulance and does not know why he is here. He thinks he may have fallen but he is not sure. He denies any head pain. He is thinks his appetite and oral intake has been adequate. He denies any chest pain or dyspnea. He is not sure if he passed out or not. In the emergency department, labs reveal a sodium of 125 and a chloride of 80. He underwent CT of the head and cervical spine which showed no acute abnormalities. He is already a little more alert and able to participate in a conversation somewhat. He was started on IV fluids. Given his altered mental status and the hyponatremia, medicine was consulted for admission. He does have a POLST form which confirms he is a DNR with limited interventions. - HOSPITAL COURSE Hospital Course: The patient was admitted given his alternative status and hyponatremia. The cause of his altered mental status was not clear but shortly after admission, his mentation improved and he returned to his baseline. He does have dementia but is oriented to person. He is not oriented to location, year, month but this appears to be his baseline. His hyponatremia was felt to be hypovolemic hyponatremia secondary to the use of hydrochlorothiazide. This was held and he was treated with normal saline. His sodium is improved to 128. This should continue to improve as we have now discontinued the thiazide. We did monitor on telemetry given the fall but there was no evidence of arrhythmia. His troponin was normal. We did check an ammonia level given he is on Depakote but this was also within normal limits. He is now stable for discharge back to [facility]. - ALLERGIES Allergies/Adverse Reactions: Allergies Allergy/AdvReac Type Severity Reaction Status Date / Time Influenza Virus Vaccines Allergy Unknown Verified 09/02/21 16:35 Penicillins Allergy Anaphylaxis Verified 09/02/21 16:35 - MEDICATIONS Home Medications: Ambulatory Orders Medication Instructions Recorded Confirmed Albuterol Sulfate [Proair Hfa 2 puffs INH Q4H PRN #1 inh 07/27/21 09/02/21 Inhaler] Ipratropium [Atrovent] 1 puffs INH Q6H PRN #1 inh 07/27/21 09/02/21 Multivitamin W/Minerals [Theragran 1 tab PO DAILYWM #30 tablet 07/27/21 09/02/21 M] Tamsulosin [Flomax] 0.4 mg PO HS #30 cap 07/27/21 09/02/21 Thiamine [Vitamin B-1] 100 mg PO DAILY #30 tablet 07/27/21 09/02/21 polyethylene glycoL 3350 [Miralax] 17 gm PO DAILY PRN 08/04/21 09/02/21 OLANZapine ODT [Zyprexa Odt] 5 mg TL HS #30 tablet 08/06/21 09/02/21 Sertraline [Zoloft] 50 mg PO DAILY #30 tablet 08/06/21 09/02/21 Acetaminophen [Tylenol] 650 mg PO Q6H PRN 09/02/21 09/02/[address] [Depakote Dr] 250 mg PO BID 09/02/21 09/02/21 Nicotine 14 mg Patch [Nicoderm] 1 each TOP Q24H 09/02/21 09/02/21 diazePAM [Valium] 5 mg PO BID PRN 09/02/21 09/02/21 - PHYSICAL EXAM AT DISCHARGE General Appearance: positive: No acute distress, Alert Eyes Bilateral: positive: Normal inspection, Conjunctivae nml ENT: positive: ENT inspection nml Respiratory: positive: No respiratory distress. negative: Wheezes, Rales Cardiovascular: positive: Regular rate & rhythm, No murmur. negative: Tachycardia Abdomen: positive: Non-tender, No distention. negative: Tenderness Skin: positive: Warm, Dry Extremities: positive: No pedal edema Neurologic/Psychiatric: positive: Disoriented to place, Disoriented to time, Other (No focal deficits.). negative: Disoriented to person Physical Exam Other/Comments: Vital Signs - 24 hr 09/02/21 09/02/21 09/03/21 18:50 23:46 08:15 Temperature 36.4 C L 36.8 C 36.4 C L Heart Rate [ 97 92 93 Brachial] Respiratory 15 17 18 Rate Blood Pressure 142/79 H [Left Brachial artery] Blood Pressure 103/58 L 132/64 H [Right Brachial artery] O2 Saturation 95 94 92 Oxygen O2 Source Room air - LABS Result Diagrams: 09/03/21 04:10 09/03/21 04:10 - DIAGNOSTIC IMAGING Diagnostic Imaging Results: Final report reviewed - FOLLOW UP Follow Up: He will need a BMP next week to ensure that his sodium is stable. - TIME SPENT Time Spent in Discharge (Minutes): 31
== END 2021-09-03 12:45 ==
LOC: EDUNIT# → ED 16:24 → MS2 17:46
PROVIDERS: ADMIT Internal Medicine; ATTEND Internal Medicine
DX: R41.0 Disorientation, unspecified (principal); E87.1 Hypo-osmolality and hyponatremia; F03.90 Unspecified dementia, unspecified severity, without behavioral disturbance, psychotic disturbance, mood disturbance, and anxiety; I95.89 Other hypotension; Z66 Do not resuscitate; T50.2X5A Adverse effect of carbonic-anhydrase inhibitors, benzothiadiazides and other diuretics, initial encounter; Z20.822 Contact with and (suspected) exposure to COVID-19; S00.83XA Contusion of other part of head, initial encounter; Z96.0 Presence of urogenital implants; J44.9 Chronic obstructive pulmonary disease, unspecified; F10.21 Alcohol dependence, in remission; N40.0 Benign prostatic hyperplasia without lower urinary tract symptoms; E86.1 Hypovolemia; W06.XXXA Fall from bed, initial encounter; Y92.129 Unspecified place in nursing home as the place of occurrence of the external cause; Z87.891 Personal history of nicotine dependence; Z74.01 Bed confinement status
CPT/HCPCS: 36415; 70450; 72125; 80048; 80053; 80164; 80306; 80307; 81001; 82140; 82436; 83690; 84300; 84443; 84484; 85025; 85610; 87086; 87635; 93005; 96361; 96374; 96375; 99285; 99291; A9270; G0378; G0480; 80320; 80329; 81003

== ENCOUNTER 2021-09-03 13:00 | Outpatient (CLI) | payer MEDICARE, MEDICAID | END 2021-09-03 13:01 | disposition home or self-care (01) | LOC: EMS 13:00 | PROVIDERS: ATTEND Emergency Medicine | DX: R53.1 Weakness (principal); Z74.01 Bed confinement status | CPT/HCPCS: A0425; A0428 ==

== ENCOUNTER 2021-09-07 08:00 | Outpatient (CLI) | payer MEDICARE, MEDICAID ==
[2021-09-07 19:53] LABS: CALCIUM 9.4 mg/dL (8.5-10.3); CREATININE 0.6 mg/dL (0.6-1.2); POTASSIUM 3.9 mmol/L (3.5-5.0)
== END 2021-09-07 23:59 | disposition home or self-care (01) ==
LOC: LAB.R 08:00
PROVIDERS: ATTEND Hospitalist
DX: N17.9 Acute kidney failure, unspecified (principal)
CPT/HCPCS: 80048

== ENCOUNTER 2021-09-20 17:10 | Outpatient (CLI) | payer MEDICARE, MEDICAID ==
[2021-09-20 21:28] LABS: BILIRUBIN,URINE NEGATIVE (NEGATIVE); GLUCOSE, URINE (UA) NEGATIVE (NEGATIVE); KETONES,URINE (UA) NEGATIVE (NEGATIVE); LEUKOCYTE ESTERASE, URINE MODERATE (NEGATIVE); NITRITE,URINE POSITIVE (NEGATIVE); OCCULT BLOOD,URINE LARGE (NEGATIVE); PROTEIN,URINE 100 mg/dL (NEGATIVE); UROBILINOGEN,URINE 0.2 (NORMAL) E.U./dL (NORMAL)
[2021-09-20 21:36] LABS: CLARITY,URINE TURBID (CLEAR)
[2021-09-20 21:49] LABS: BACTERIA,URINE Moderate /HPF (None Seen); SQUAMOUS EPITHELIAL CELL,UR NONE SEEN (<= Few); WBC,URINE >25 /HPF (0-3)
== END 2021-09-20 23:59 | disposition home or self-care (01) ==
LOC: LAB.R 17:10
PROVIDERS: ATTEND Hospitalist
DX: N39.0 Urinary tract infection, site not specified (principal)
CPT/HCPCS: 81001; 87077; 87086; 87181

== ENCOUNTER 2021-10-05 16:23 | Outpatient (CLI) | payer MEDICARE, MEDICAID | END 2021-10-05 16:24 | disposition critical access hospital (66) | LOC: EMS 16:23 | DX: R50.9 Fever, unspecified (principal) | CPT/HCPCS: A0425; A0429 ==

== ENCOUNTER 2021-10-05 16:36 | Emergency (ER) | payer MEDICARE, MEDICAID ==
[2021-10-05] MEDS ORDERED: ACETAMINOPHEN 500 MG TABLET PO STA (16:37)
--- NOTE | 2021-10-05 16:38 | ED Physician Documentation ---
PD HPI FEVER - Stated complaint Stated Complaint: FEVER - History obtained from History obtained from: Patient, EMS - Additional information Additional information: 66-year-old gentleman with history of COPD presents by ambulance for the anahy luation of fever. He comes from an assisted living facility where they noted him to be febrile last night and then today went up to 104.1 reportedly. Patient has no complaints and is clearly less than happy to be here leading to some issues with cooperativeness with history and physical. Review of Systems Ten Systems: 10 systems reviewed and negative Constitutional: reports: Fever, Chills, Fatigue. denies: Myalgias Nose: denies: Rhinorrhea / runny nose, Congestion Throat: denies: Sore throat Respiratory: denies: Dyspnea, Cough PD PAST MEDICAL HISTORY - Past Medical History Cardiovascular: None Respiratory: COPD Neuro: Dementia Endocrine/Autoimmune: None : Benign prostate hypertrophy, Indwelling catheter Musculoskeletal: Osteoarthritis - Past Surgical History Ortho: Amputation - Present Medications Home Medications: Ambulatory Orders Medication Instructions Recorded Confirmed Albuterol Sulfate [Proair Hfa 2 puffs INH Q4H PRN #1 inh 07/27/21 09/02/21 Inhaler] Ipratropium [Atrovent] 1 puffs INH Q6H PRN #1 inh 07/27/21 09/02/21 Multivitamin W/Minerals [Theragran 1 tab PO DAILYWM #30 tablet 07/27/21 09/02/21 M] Tamsulosin [Flomax] 0.4 mg PO HS #30 cap 07/27/21 09/02/21 Thiamine [Vitamin B-1] 100 mg PO DAILY #30 tablet 07/27/21 09/02/21 polyethylene glycoL 3350 [Miralax] 17 gm PO DAILY PRN 08/04/21 09/02/21 OLANZapine ODT [Zyprexa Odt] 5 mg TL HS #30 tablet 08/06/21 09/02/21 Sertraline [Zoloft] 50 mg PO DAILY #30 tablet 08/06/21 09/02/21 Acetaminophen [Tylenol] 650 mg PO Q6H PRN 09/02/21 09/02/21 Divalproex [Depnavid Pacheco] 250 mg PO BID 09/02/21 09/02/21 Nicotine 14 mg Patch [Nicoderm] 1 each TOP Q24H 09/02/21 09/02/21 diazePAM [Valium] 5 mg PO BID PRN 09/02/21 09/02/21 Oseltamivir [Tamiflu] 75 mg PO BID #10 cap 10/05/21 - Allergies Allergies/Adverse Reactions: Allergies Allergy/AdvReac Type Severity Reaction Status Date / Time Influenza Virus Vaccines Allergy Unknown Verified 10/05/21 16:42 Penicillins Allergy Anaphylaxis Verified 10/05/21 16:42 - Social History Does the pt smoke?: Yes Smoking Status: Never smoker Does the pt drink ETOH?: Yes Does the pt have substance abuse?: No - Immunizations Immunizations: TDAP >10years/unknown - POLST Patient has POLST: No PD ED PE NORMAL - Vitals Vital signs reviewed: Yes - General General: Alert and oriented X 3, Other (66-year-old gentleman who is less than completely cooperative and unhappy to be here but in no distress and without complaints.) - HEENT HEENT: PERRL, EOMI - Neck Neck: Supple, no meningeal sign, No bony TTP - Cardiac Cardiac: RRR, No murmur - Respiratory Respiratory: No respiratory distress, Other (Wheezy throughout without focal fin dings) - Abdomen Abdomen: Non tender - Derm Derm: No rash - Neuro Neuro: Alert and oriented X 3, Normal speech Results - Vitals Vitals: Vital Signs - 24 hr 10/05/21 10/05/21 10/05/21 16:37 16:47 17:56 Temperature 38.5 C H 38.5 C H Heart Rate 111 H 110 H 97 Respiratory 20 20 22 Rate Blood Pressure 137/83 H 167/83 H 129/70 O2 Saturation 92 93 90 L 10/05/21 18:17 Temperature 101.3 C H Heart Rate 94 Respiratory 18 Rate Blood Pressure 140/80 H O2 Saturation 93 Oxygen O2 Source Room air - Labs Labs: Laboratory Tests 10/05/21 10/05/21 10/05/21 16:47 16:47 16:47 WBC 8.0 RBC 3.36 L Hgb 10.8 L Hct 31.7 L MCV 94.3 H MCH 32.1 H MCHC 34.1 RDW 14.0 Plt Count 368 MPV 9.4 Neut # (Auto) Not Reportable Lymph # (Auto) Not Reportable [place] # (Auto) Not Reportable Eos # (Auto) Not Reportable Baso # (Auto) Not Reportable Absolute Nucleated RBC Not Reportable Total Counted 100 Band Neuts % (Manual) 0 Reactive Lymphs % (Man) 3 Abnorm Lymph % (Manual) 0 Nucleated RBC % Not Reportable Neutrophils # (Manual) 5.8 Lymphocytes # (Manual) 0.9 L Monocytes # (Manual) 1.3 H Eosinophils # (Manual) 0.0 Basophils # (Manual) 0.1 Differential Comment MANUAL DIFFERENTIAL WBC Morphology NORMAL APPEARANCE Platelet Estimate NORMAL (130-450,000) Platelet Morphology NORMAL APPEARANCE RBC Morph Micro Appear NORMAL APPEARANCE Sodium 134 L Potassium 3.8 Chloride 98 L Carbon Dioxide 26 Anion Gap 10.0 BUN 29 H Creatinine 0.7 Estimated GFR (MDRD) 112 Glucose 109 H Lactic Acid 0.8 Calcium 8.9 Total Bilirubin 0.2 AST 24 ALT 18 Alkaline Phosphatase 55 Total Protein 7.0 Albumin 3.7 Globulin 3.3 Albumin/Globulin Ratio 1.1 Urine Color Urine Clarity Urine pH Ur Specific [place] Gap Urine Protein Urine Glucose (UA) Urine Ketones Urine Occult Blood Urine Nitrite Urine Bilirubin Urine Urobilinogen Ur Leukocyte Esterase Urine RBC Urine WBC Ur Squamous Epith Cells Urine Crystals Amorphous Sediment Urine Bacteria Urine Culture Comments Nasal Adenovirus (PCR) Nasal B. parapertussis DNA (PCR) Nasal Coronavir 229E PCR Nasal Coronavir HKU1 PCR Nasal Coronavir NL63 PCR Nasal Coronavir OC43 PCR Nasal Enterovir/Rhinovir PCR Nasal Influenza A H3 PCR Nasal Influenza B PCR Nasal Parainfluen 1 PCR Nasal Parainfluen 2 PCR Nasal Parainfluen 3 PCR Nasal Parainfluen 4 PCR Nasal RSV (PCR) Nasal B.pertussis DNA PCR Nasal C.pneumoniae (PCR) [place] Human Metapneumo PCR Nasal M.pneumoniae (PCR) Nasal SARS-CoV-2 (PCR) 10/05/21 10/05/21 16:55 17:55 WBC RBC Hgb Hct MCV MCH MCHC RDW Plt Count MPV Neut # (Auto) Lymph # (Auto) [place] # (Auto) Eos # (Auto) Baso # (Auto) Absolute Nucleated RBC Total Counted Band Neuts % (Manual) Reactive Lymphs % (Man) Abnorm Lymph % (Manual) Nucleated RBC % Neutrophils # (Manual) Lymphocytes # (Manual) Monocytes # (Manual) Eosinophils # (Manual) Basophils # (Manual) Differential Comment WBC Morphology Platelet Estimate Platelet Morphology RBC Morph Micro Appear Sodium Potassium Chloride Carbon Dioxide Anion Gap BUN Creatinine Estimated GFR (MDRD) Glucose Lactic Acid Calcium Total Bilirubin AST ALT Alkaline Phosphatase Total Protein Albumin Globulin Albumin/Globulin Ratio Urine Color BROWN Urine Clarity CLOUDY Urine pH >=9.0 H Ur Specific [place] Gap <=1.005 Urine Protein >=300 H Urine Glucose (UA) NEGATIVE Urine Ketones NEGATIVE Urine Occult Blood LARGE H Urine Nitrite POSITIVE H Urine Bilirubin NEGATIVE Urine Urobilinogen 0.2 (NORMAL) Ur Leukocyte Esterase MODERATE H Urine RBC TNTC H Urine WBC 4-5 Ur Squamous Epith Cells RARE Squamous Urine Crystals >50 Triple Phos Amorphous Sediment Few Urine Bacteria Few Urine Culture Comments INDICATED Nasal Adenovirus (PCR) NOT DETECTED Nasal B. parapertussis DNA (PCR) NOT DETECTED Nasal Coronavir 229E PCR NOT DETECTED Nasal Coronavir HKU1 PCR NOT DETECTED Nasal Coronavir NL63 PCR NOT DETECTED Nasal Coronavir OC43 PCR NOT DETECTED Nasal Enterovir/Rhinovir PCR NOT DETECTED Nasal Influenza A H3 PCR DETECTED A Nasal Influenza B PCR NOT DETECTED Nasal Parainfluen 1 PCR NOT DETECTED Nasal Parainfluen 2 PCR NOT DETECTED Nasal Parainfluen 3 PCR NOT DETECTED Nasal Parainfluen 4 PCR NOT DETECTED Nasal RSV (PCR) NOT DETECTED Nasal B.pertussis DNA PCR NOT DETECTED Nasal C.pneumoniae (PCR) NOT DETECTED [place] Human Metapneumo PCR NOT DETECTED Nasal M.pneumoniae (PCR) NOT DETECTED Nasal SARS-CoV-2 (PCR) NOT DETECTED PD MEDICAL DECISION MAKING - ED course ED course: 66-year-old gentleman presents by ambulance from [facility] despite POLST paperwork saying comfort measures only and preferring not to transport to the hospital. He has a fever but is otherwise relatively asymptomatic. Work-up here demonstrates evidence of influenza A without bacterial superinfection. Given his age and underlying comorbidities oseltamivir was prescribed. Departure - Departure Disposition: Home, Self Care Clinical Impression: Influenza A, Fever Condition: Stable Record reviewed to determine appropriate education?: Yes Instructions: ED Flu Prescriptions: Oseltamivir [Tamiflu] 75 mg PO BID #10 cap Comments: Farooq was found to have influenza a is the cause of his fever. I am prescribing Tamiflu. Tylenol and/or ibuprofen as needed for the fever. Return for new or worsening symptoms. Discharge Date/Time: 10/05/21 18:42
[2021-10-05 16:52] LABS: BASOPHILS % (AUTO) 0.4 %; EOSINOPHILS % (AUTO) 0.1 %; HCT - HEMATOCRIT 31.7 % (42.0-52.0); HGB - HEMOGLOBIN 10.8 g/dL (14.0-18.0); LYMPHOCYTES % (AUTO) 16.1 %; MEAN CORPUSCULAR HEMOGLOBIN 32.1 pg (27.0-31.0); MEAN CORPUSCULAR HGB CONC 34.1 g/dL (32.0-36.0); MEAN CORPUSCULAR VOLUME 94.3 fL (80.0-94.0); MEAN PLATELET VOLUME 9.4 fL (7.4-11.4); MONOCYTES % (AUTO) 23.8 %; NEUTROPHILS % (AUTO) 59.3 %; PLT - PLATELET COUNT 368 10^3/uL (130-450); RED BLOOD COUNT 3.36 10^6/uL (4.70-6.10)
[2021-10-05 16:54] LABS: ABNORMAL LYMPHS % (MANUAL) 0 %; BAND NEUTROPHILS % (MANUAL) 0 %
[2021-10-05 17:04] LABS: ALBUMIN 3.7 g/dL (3.2-5.5); ALBUMIN/GLOBULIN RATIO 1.1 (1.0-2.2); BILIRUBIN,TOTAL 0.2 mg/dL (0.2-1.0); CALCIUM 8.9 mg/dL (8.5-10.3); CREATININE 0.7 mg/dL (0.6-1.2); POTASSIUM 3.8 mmol/L (3.5-5.0)
--- NOTE | 2021-10-05 17:34 | XRAY Report ---
PROCEDURE: Chest 1 View X-Ray INDICATIONS: fever TECHNIQUE: One view of the chest was acquired. COMPARISON: 08/04/2021 FINDINGS: Surgical changes and devices: None. Lungs and pleura: No pleural effusions or pneumothorax. Lungs are clear. Mediastinum: Mediastinal contours appear normal. Heart size is normal. Bones and chest wall: No suspicious bony lesions. Overlying soft tissues appear unremarkable. IMPRESSION: Normal chest x-ray Reviewed by: Yasir Mcqueen on 10/05/2021 5:32 PM PDT Approved by: Yasir Mcqueen on 10/05/2021 5:32 PM PDT Station ID: [id number]
[2021-10-05 17:46] LABS: BASOPHILS # (MANUAL) 0.1 10^3/uL (0-0.1); BASOPHILS % (MANUAL) 1 %; LYMPHOCYTES # (MANUAL) 0.9 10^3/uL (1.5-3.5); LYMPHOCYTES % (MANUAL) 8 %; MONOCYTES # (MANUAL) 1.3 10^3/uL (0.0-1.0); NEUTROPHILS # (MANUAL) 5.8 10^3/uL (1.5-6.6); PLATELET ESTIMATE, MANUAL NORMAL (130-450,000) (NORMAL); PLATELET MORPHOLOGY NORMAL APPEARANCE (NORMAL); RBC MORPHOLOGY (MULTIPLE) NORMAL APPEARANCE (NORMAL); REACTIVE LYMPHS % (MANUAL) 3 %; WBC MORPHOLOGY (MULTIPLE) NORMAL APPEARANCE (NORMAL)
[2021-10-05 17:47] LABS: DIFFERENTIAL COMMENT MANUAL DIFFERENTIAL
[2021-10-05 17:52] LABS: CORONAVIRUS 229E-RESP PCR NOT DETECTED; CORONAVIRUS HKU1-RESP PCR NOT DETECTED; CORONAVIRUS NL63-RESP PCR NOT DETECTED; CORONAVIRUS OC43-RESP PCR NOT DETECTED; HUMAN METAPNEUMOVIRUS NOT DETECTED; RHINOVIRUS/ENTEROVIRUS NOT DETECTED; SARS-CoV-2 -RESP PCR PANEL NOT DETECTED
[2021-10-05 17:53] LABS: B. PARAPERTUSSIS- RESP PCR PAN NOT DETECTED; B. PERTUSSIS- RESP PCR PANEL NOT DETECTED; C. PNEUMONIAE- RESP PCR PANEL NOT DETECTED; INFLUENZA A H3- RESP PCR PANEL DETECTED; INFLUENZA B - RESP PCR PANEL NOT DETECTED; M. PNEUMONIAE- RESP PCR PANEL NOT DETECTED; PARAINFLUENZA VIRUS 1 NOT DETECTED; PARAINFLUENZA VIRUS 2 NOT DETECTED; PARAINFLUENZA VIRUS 3 NOT DETECTED; PARAINFLUENZA VIRUS 4 NOT DETECTED; RSV- RESP PCR PANEL NOT DETECTED
[2021-10-05] MEDS ORDERED: OSELTAMIVIR 75 MG CAPSULE PO STA (18:01)
[2021-10-05 18:06] LABS: BILIRUBIN,URINE NEGATIVE (NEGATIVE); GLUCOSE, URINE (UA) NEGATIVE (NEGATIVE); KETONES,URINE (UA) NEGATIVE (NEGATIVE); LEUKOCYTE ESTERASE, URINE MODERATE (NEGATIVE); NITRITE,URINE POSITIVE (NEGATIVE); OCCULT BLOOD,URINE LARGE (NEGATIVE); PH,URINE >=9.0 PH (5.0-7.5); PROTEIN,URINE >=300 mg/dL (NEGATIVE); UROBILINOGEN,URINE 0.2 (NORMAL) E.U./dL (NORMAL)
[2021-10-05 18:08] LABS: CLARITY,URINE CLOUDY (CLEAR)
[2021-10-05 18:19] VITALS: BP 140/80
[2021-10-05 18:20] LABS: AMORPHOUS SEDIMENT,UR Few /LPF; BACTERIA,URINE Few /HPF (None Seen); CRYSTALS,URINE >50 Triple Phos /LPF; RBC,URINE TNTC /HPF (0-5); SQUAMOUS EPITHELIAL CELL,UR RARE Squamous (<= Few)
== END 2021-10-05 18:42 | disposition home or self-care (01) ==
LOC: ED 16:36
DX: J10.1 Influenza due to other identified influenza virus with other respiratory manifestations (principal); Z20.822 Contact with and (suspected) exposure to COVID-19
CPT/HCPCS: 36415; 71045; 80053; 81001; 83605; 85025; 87040; 87086; 87633; 99282; 99284; A9270

== ENCOUNTER 2021-10-05 18:43 | Outpatient (CLI) | payer MEDICARE, MEDICAID | END 2021-10-05 18:44 | disposition home or self-care (01) | LOC: EMS 18:43 | PROVIDERS: ATTEND Emergency Medicine | DX: F03.90 Unspecified dementia, unspecified severity, without behavioral disturbance, psychotic disturbance, mood disturbance, and anxiety (principal); R41.0 Disorientation, unspecified; J11.1 Influenza due to unidentified influenza virus with other respiratory manifestations | CPT/HCPCS: A0425; A0428 ==

== ENCOUNTER 2021-11-03 14:20 | Outpatient (CLI) | payer MEDICARE, MEDICAID ==
--- NOTE | 2021-11-03 16:29 | XRAY Report ---
PROCEDURE: Chest 2 View X-Ray INDICATIONS: WHEEZES DIMINISHED LS IN BASES,FEVER INTERMITTEN TECHNIQUE: 2 view(s) of the chest. COMPARISON: 10/05/2021, 08/04/2021. FINDINGS: Surgical changes and devices: None. Lungs and pleura: No pneumothorax. Lungs are hyperinflated and hyperlucent. There is diffuse interst itial thickening, most prominent in the mid and lower lung zones, right greater than left. The machine adjuster helper ior costophrenic angles were not included on the film. Mediastinum: Mediastinal contours are normal. Heart size is normal. Bones and chest wall: No suspicious bony abnormalities. Soft tissues appear unremarkable. IMPRESSION: 1. Diffuse bilateral mid and lower lung interstitial thickening, more pronounced in the right lower l ana rosa. Viral or atypical interstitial pneumonitis may have this appearance. Differential diagnosis incl udes chronic edema or chronic interstitial lung disease. This has become more prominent since the hanna or study. 2. Underlying emphysema. Reviewed by: Madhuri Vaz MD on 11/03/2021 4:28 PM PDT Approved by: Madhuri Vaz MD on 11/03/2021 4:28 PM PDT Station ID: [id number]
== END 2021-11-03 14:21 | disposition home or self-care (01) ==
LOC: DI 14:20
PROVIDERS: ATTEND Registered Nurse
DX: J18.9 Pneumonia, unspecified organism (principal); J43.9 Emphysema, unspecified

== ENCOUNTER 2022-01-18 22:24 | Outpatient (CLI) | payer MEDICARE, MEDICAID ==
[2022-01-18 23:10] LABS: ABSOLUTE RETICS # AUTO 0.11 10^6/uL (0.020-0.110); RED BLOOD COUNT 3.45 10^6/uL (4.70-6.10); RETICULOCYTE COUNT % (AUTO) 3.2 % (0.5-2.3)
[2022-01-18 23:30] LABS: % IRON SATURATION 11 % (20-50); IRON 35 ug/dL (45-182); TOTAL IRON BINDING CAPACITY 329 ug/dL (250-450); TRANSFERRIN 235 mg/dL (180-329)
[2022-01-18 23:36] LABS: THYROID STIMULATING HORMONE 2.38 uIU/mL (0.34-5.60)
[2022-01-20 08:09] LABS: RPR Non Reactive (Non Reactive)
== END 2022-01-18 23:59 | disposition home or self-care (01) ==
LOC: LAB.R 22:24
DX: E03.9 Hypothyroidism, unspecified (principal); E61.1 Iron deficiency; D64.9 Anemia, unspecified; R62.7 Adult failure to thrive; A53.9 Syphilis, unspecified
CPT/HCPCS: 82607; 83540; 84443; 84466; 85045; 86592

== ENCOUNTER 2022-02-11 15:25 | Outpatient (CLI) | payer MEDICARE, MEDICAID ==
[2022-02-11 22:33] LABS: BASOPHILS % (AUTO) 0.4 %; EOSINOPHILS # (AUTO) 0.2 10^3/uL (0.0-0.7); EOSINOPHILS % (AUTO) 2.5 %; HCT - HEMATOCRIT 36.3 % (42.0-52.0); HGB - HEMOGLOBIN 11.8 g/dL (14.0-18.0); LYMPHOCYTES # (AUTO) 1.7 10^3/uL (1.5-3.5); LYMPHOCYTES % (AUTO) 19.1 %; MEAN CORPUSCULAR HEMOGLOBIN 29.7 pg (27.0-31.0); MEAN CORPUSCULAR HGB CONC 32.5 g/dL (32.0-36.0); MEAN CORPUSCULAR VOLUME 91.4 fL (80.0-94.0); MEAN PLATELET VOLUME 10.4 fL (7.4-11.4); MONOCYTES # (AUTO) 1.1 10^3/uL (0.0-1.0); MONOCYTES % (AUTO) 12.3 %; NEUTROPHILS # (AUTO) 5.9 10^3/uL (1.5-6.6); RED BLOOD COUNT 3.97 10^6/uL (4.70-6.10); RED CELL DISTRIBUTION WIDTH 16.2 % (12.0-15.0); WHITE BLOOD COUNT 9.1 x10^3/uL (4.8-10.8)
[2022-02-11 22:47] LABS: ALBUMIN 4.3 g/dL (3.2-5.5); ALBUMIN/GLOBULIN RATIO 1.2 (1.0-2.2); BILIRUBIN,TOTAL 0.5 mg/dL (0.2-1.0); CALCIUM 9.4 mg/dL (8.5-10.3); CREATININE 0.8 mg/dL (0.6-1.2); POTASSIUM 4.6 mmol/L (3.5-5.0); TOTAL PROTEIN 7.8 g/dL (6.7-8.2)
[2022-02-11 23:42] LABS: RBC MORPHOLOGY (MULTIPLE) 1+ ANISOCYTOSIS (NORMAL)
[2022-02-11 23:43] LABS: PLATELET ESTIMATE, MANUAL INCREASED (>450,000) (NORMAL)
== END 2022-02-11 23:59 | disposition home or self-care (01) ==
LOC: LAB.R 15:25
DX: N17.9 Acute kidney failure, unspecified (principal); R62.7 Adult failure to thrive
CPT/HCPCS: 80053; 85025

== ENCOUNTER 2022-02-25 08:00 | Outpatient (CLI) | payer MEDICARE, MEDICAID ==
[2022-02-25 11:12] LABS: CALCIUM 9.7 mg/dL (8.5-10.3); CREATININE 0.7 mg/dL (0.6-1.2); POTASSIUM 4.5 mmol/L (3.5-5.0)
== END 2022-02-25 23:59 | disposition home or self-care (01) ==
LOC: LAB.R 08:00
PROVIDERS: ATTEND Internal Medicine
DX: I10 Essential (primary) hypertension (principal); M62.81 Muscle weakness (generalized)
CPT/HCPCS: 80048

== ENCOUNTER 2022-03-23 17:56 | Outpatient (CLI) | payer MEDICARE, MEDICAID | END 2022-03-23 17:57 | disposition critical access hospital (66) | LOC: EMS 17:56 | DX: R07.81 Pleurodynia (principal); W18.39XA Other fall on same level, initial encounter; Y92.129 Unspecified place in nursing home as the place of occurrence of the external cause | CPT/HCPCS: A0425; A0429 ==

== ENCOUNTER 2022-03-23 18:02 | Emergency (ER) | payer MEDICARE, MEDICAID ==
[2022-03-23] MEDS ORDERED: oxyCODONE 5 MG TABLET PO STA (18:10)
--- NOTE | 2022-03-23 18:14 | ED Physician Documentation ---
History of Present Illness - Stated complaint Stated Complaint: FELL, LEFT RIB PAIN - Additonal information Additional information: 67-year-old gentleman is brought to the emergency department for evaluation of left-sided rib pain. He lives at [facility] and had an unwitnessed ground-level fall yesterday about 9 PM. He is not anticoagulated and last night he declined transport but over the course of the last now 24 hours has begun to have increasing pain. For EMS he was noted to have some mild dyspnea room air saturations were 90 to 93%. He was placed on 4 L nasal cannula. He does have a history of COPD intermittently has used oxygen. Also history of chronic kidney disease as well as what is thought to be dementia. He is a DNR comfort measures only. This gentleman appears much older than stated age and does have a history of alcoholism in the past. Review of Systems Unable to obtain: Dementia Musculoskeletal: reports: Other (Left-sided rib pain) PD PAST MEDICAL HISTORY - Past Medical History Cardiovascular: None Respiratory: COPD Neuro: Dementia Endocrine/Autoimmune: None : Benign prostate hypertrophy, Indwelling catheter Psych: Depression Musculoskeletal: Osteoarthritis - Past Surgical History Past Surgical History: Yes Ortho: Amputation - Present Medications Home Medications: Ambulatory Orders Medication Instructions Recorded Confirmed Albuterol Sulfate [Proair Hfa 2 puffs INH Q4H PRN #1 inh 07/27/21 09/02/21 Inhaler] Ipratropium [Atrovent] 1 puffs INH Q6H PRN #1 inh 07/27/21 09/02/21 Multivitamin W/Minerals [Theragran 1 tab PO DAILYWM #30 tablet 07/27/21 12/27/21 M] Tamsulosin [Flomax] 0.4 mg PO HS #30 cap 07/27/21 12/27/21 Thiamine [Vitamin B-1] 100 mg PO DAILY #30 tablet 07/27/21 12/27/21 polyethylene glycoL 3350 [Miralax] 17 gm PO DAILY PRN 08/04/21 09/02/21 OLANZapine ODT [Zyprexa Odt] 5 mg TL HS #30 tablet 08/06/21 12/27/21 Sertraline [Zoloft] 50 mg PO DAILY #30 tablet 08/06/21 12/27/21 Acetaminophen [Tylenol] 650 mg PO Q6H PRN 09/02/21 09/02/[address] [Depakote Dr] 250 mg PO BID 09/02/21 09/02/21 Nicotine 14 mg Patch [Nicoderm] 1 each TOP Q24H 09/02/21 09/02/21 diazePAM [Valium] 5 mg PO BID PRN 09/02/21 09/02/21 Oseltamivir [Tamiflu] 75 mg PO BID #10 cap 10/05/21 oxyCODONE [Roxicodone] 5 mg PO BID PRN #10 tablet 03/23/22 polyethylene glycoL 3350 [Miralax] 17 gm PO DAILY PRN #1 each 03/23/22 - Allergies Allergies/Adverse Reactions: Allergies Allergy/AdvReac Type Severity Reaction Status Date / Time Influenza Virus Vaccines Allergy Unknown Verified 12/27/21 00:47 Penicillins Allergy Anaphylaxis Verified 12/27/21 00:47 - Social History Does the pt smoke?: Yes Smoking Status: Never smoker Does the pt drink ETOH?: Yes Does the pt have substance abuse?: No - Immunizations Immunizations: TDAP >10years/unknown - POLST Patient has POLST: No PD ED PE NORMAL - General General: Other (Disheveled chronically ill appearance. Appears much older than stated age). No: Alert and oriented X 3 (mild confusion at baseline) - HEENT HEENT: Atraumatic, Moist mucous membranes - Neck Neck: Supple, no meningeal sign, No adenopathy - Cardiac Cardiac: RRR, No murmur - Respiratory Respiratory: No: Clear bilaterally (bilateral rhonchi) - Abdomen Abdomen: Normal bowel sounds, Soft - Derm Derm: Normal color, Warm and dry, No rash. No: Other (Significant tenderness with palpation of the left lateral and anterior rib cages. No crepitus. ) - Extremities Extremities: No deformity - Neuro Neuro: Alert and oriented X 3, group chief operator 2-12 intact Eye Opening: Spontaneous Motor: Obeys Commands Verbal: Oriented GCS Score: 15 Results - Vitals Vitals: Vital Signs - 24 hr 03/23/22 18:19 Temperature 37.6 C Heart Rate 95 Respiratory 18 Rate Blood Pressure 173/106 H O2 Saturation 97 Oxygen O2 Source Room air - Rads (name of study) CT head Radiology: Final report received (No acute intracranial abnormality) cervical ct Radiology: Final report received (No acute fracture or traumatic subluxation of the cervical spine) CT chest Radiology: Final report received (Motion degraded chest CT. Questionable nondisplaced left 11th rib fracture. Deformity of the right second rib may not be acute, correlate for point tenderness. Other findings as above.) PD MEDICAL DECISION MAKING - ED course Complexity details: reviewed results, re-evaluated patient, d/w patient ED course: 67-year-old male who is a DNR/comfort measures only patient presents to the emergency department for evaluation of left-sided rib pain after ground-level fall at [facility] yesterday evening. Denies striking his head or losing consciousness. He is not anticoagulated. He however he does have very focal left lower lateral rib pain. He is on room air here with no hypoxia or respiratory distress. Subsequent CT imaging of the head neck and chest do not show any concerns for fracture in the spine or bleeding in the head but there is an isolated left rib fracture. This is where he has the maximal tenderness. There was findings to suggest a possible second right rib fracture that could be nonacute but patient is not tender in this area. Incidental finding made of pneumobilia and in the past patient has been noted to have cholelithiasis. However his abdomen is nontender and given the history of being DNR comfort measures only would not recommend further work-up of this. I am sending a prescription for oxycodone to our [facility] pharmacy. Patient is discharged home in stable but unchanged condition Departure - Departure Disposition: 01 Home, Self Care Clinical Impression: Fall from ground level, Pneumobilia Left rib fracture Qualifiers: Encounter type: initial encounter Rib fracture type: single rib Fracture type: closed Qualified Code(s): S22.32XA - Fracture of one rib, left side, initial encounter for closed fracture Condition: Stable Record reviewed to determine appropriate education?: Yes Instructions: ED Fx Rib Prescriptions: polyethylene glycoL 3350 [Miralax] 17 gm PO DAILY PRN #1 each PRN Reason: Constipation Comments: Farooq you were seen today because you had a fall last night at [facility]. You have some left-sided rib pain. The CT scan shows a nondisplaced isolated left rib fracture. This is something that I expect will heal well with time. I encourage you to continue to ambulate as much as you can and keep taking big deep breaths. You can continue your usual pain medication such as ibuprofen or Tylenol but for more severe pain I have sent a prescription of oxycodone to our own [facility] pharmacy here. The CT of your head and neck did not show any bleeding or broken bones. The CT portion of your chest that included your liver showed a little bit of air within the biliary system. This called pneumobilia. It is not of concern today though your primary provider may wish to work this up in the future moving forward. Return to the ED if you have any sudden serious worsening concerns
--- NOTE | 2022-03-23 18:52 | CT Report ---
PROCEDURE: HEAD WO INDICATIONS: glf TECHNIQUE: Noncontrast 4.5 mm thick angled axial sections acquired from the foramen magnum to the vertex. For r adiation dose reduction, the following was used: automated exposure control, adjustment of mA and/or kV according to patient size. COMPARISON: 09/02/2021 FINDINGS: Image quality: Motion degraded CSF spaces: Basal cisterns are patent. Lateral ventricles are symmetric. Volume: Periventricular white matter hypoattenuation is commonly seen with chronic small vessel disea se. Volume loss is present. These findings are moderate. Brain: No intracranial hemorrhage. Coon-white differentiation is grossly maintained. Craniofacial structures: No displaced fracture. Sinuses are clear. Orbits are intact. IMPRESSION: No acute intracranial abnormality. Reviewed by: Eb Hassan MD on 03/23/2022 6:51 PM PDT Approved by: Eb Hassan MD on 03/23/2022 6:51 PM PDT Station ID: [id number]
--- NOTE | 2022-03-23 18:54 | CT Report ---
PROCEDURE: CERVICAL SPINE WO INDICATIONS: glf; left rib pain TECHNIQUE: Noncontrast 3 mm thick sections acquired from the skull base to the T4 level. Sagittal and coronal r eformats were then constructed. For radiation dose reduction, the following was used: automated exp osure control, adjustment of mA and/or kV according to patient size. COMPARISON: 09/02/2021 FINDINGS: Image quality: Excellent. Bones: No fractures or dislocations. Visualized superior ribs are intact. Mild to moderate degener ative changes. Straightening of normal cervical lordosis with multilevel spondylolisthesis. Soft tissues: Prevertebral soft tissues are normal in thickness. No paravertebral hematomas. Chest findings separately dictated. IMPRESSION: No acute fracture or traumatic subluxation of the cervical spine. Reviewed by: Eb Hassan MD on 03/23/2022 6:53 PM PDT Approved by: Eb Hassan MD on 03/23/2022 6:53 PM PDT Station ID: [id number]
--- NOTE | 2022-03-23 18:59 | CT Report ---
PROCEDURE: CHEST WO INDICATIONS: GLF; left rib pain TECHNIQUE: Noncontrast 1mm axial images were acquired from the pulmonary apices to the posterior costophrenic an gles. Axial 5 mm soft tissue kernel reconstructions were performed as well as 8 mm axial MIP and cor onal and sagittal 5 mm reformations. For radiation dose reduction, the following was used: automate d exposure control, adjustment of mA and/or kV according to patient size. COMPARISON: FINDINGS: Image quality: Motion degraded Lungs and pleura: Emphysema. No dense consolidation. No pneumothorax or pleural effusion. There are q uestionable micronodules seen on maximum intensity projection images. Consider enrollment in lung can cer screening patient qualifies. Mediastinum, heart, and esophagus: No hiatal hernia. No pathologic adenopathy by size criteria. Small pericardial effusion versus thickening. Chest wall and thyroid: Thyroid is unremarkable. Gynecomastia. No chest wall hematoma. Upper abdomen: Partially seen and difficult to evaluate. There is a suspected pneumobilia. Possible c holelithiasis. Bones: Questionable nondisplaced left 11th rib fracture. No other suspicious osseous abnormality. Rig ht second rib deformity may not be acute. IMPRESSION: Motion degraded chest CT. Questionable nondisplaced left 11th rib fracture. Deformity right second ri b may not be acute, correlate for point tenderness. Other findings as above. Reviewed by: Eb Hassan MD on 03/23/2022 6:58 PM PDT Approved by: Eb Hassan MD on 03/23/2022 6:58 PM PDT Station ID: [id number]
[2022-03-23 19:59] VITALS: BP 161/92
== END 2022-03-23 19:58 | disposition home or self-care (01) ==
LOC: EDUNIT# → ED 18:02
DX: S22.32XA Fracture of one rib, left side, initial encounter for closed fracture (principal); W18.30XA Fall on same level, unspecified, initial encounter; Y92.129 Unspecified place in nursing home as the place of occurrence of the external cause; N18.9 Chronic kidney disease, unspecified; J44.9 Chronic obstructive pulmonary disease, unspecified; F03.90 Unspecified dementia, unspecified severity, without behavioral disturbance, psychotic disturbance, mood disturbance, and anxiety; Z66 Do not resuscitate
CPT/HCPCS: 70450; 71250; 72125; 99283; 99284; A9270

== ENCOUNTER 2022-03-23 19:55 | Outpatient (CLI) | payer MEDICARE, MEDICAID | END 2022-03-23 19:56 | disposition home or self-care (01) | LOC: EMS 19:55 | PROVIDERS: ATTEND Registered Nurse | DX: S22.32XA Fracture of one rib, left side, initial encounter for closed fracture (principal); W19.XXXA Unspecified fall, initial encounter; F03.90 Unspecified dementia, unspecified severity, without behavioral disturbance, psychotic disturbance, mood disturbance, and anxiety | CPT/HCPCS: A0425; A0428 ==

== ENCOUNTER 2022-04-26 14:27 | Outpatient (CLI) | payer MEDICARE, MEDICAID | END 2022-04-26 23:59 | disposition home or self-care (01) | LOC: EMS 14:27 | PROVIDERS: ATTEND Emergency Medicine | DX: J44.1 Chronic obstructive pulmonary disease with (acute) exacerbation (principal); R09.02 Hypoxemia; F03.90 Unspecified dementia, unspecified severity, without behavioral disturbance, psychotic disturbance, mood disturbance, and anxiety | CPT/HCPCS: A0425; A0428 ==

== ENCOUNTER 2022-04-26 14:35 | Emergency (ER) | payer MEDICARE, MEDICAID ==
[2022-04-26] MEDS ORDERED: IPRATROPIUM/ALBUTEROL 3 ML NEB INH STA (14:55)
[2022-04-26] MEDS ORDERED: methylPREDNISolone SUCCINATE 125 MG/2 ML VIAL IVP STA (14:55)
[2022-04-26] MEDS ORDERED: SODIUM CHLORIDE 0.9% 1,000 ML IV STA (14:56)
--- NOTE | 2022-04-26 15:01 | ED Physician Documentation ---
History of Present Illness - Stated complaint Stated Complaint: COPD EXACERBATION - Chief complaint Chief Complaint: Resp - History obtained from History obtained from: Patient - History of Present Illness Timing: How many days ago (2-3) Pain level max: 0 Pain level now: 0 - Additonal information Additional information: Patient is a 67-year-old male, DNR, DNI, comfort care who presents to the emergency department with increased work of breathing, fever, cough, congestion. Unclear when this started. He does have dementia and is unable to give much history. He lives at [facility]. He does not use oxygen at baseline. EMS states that they picked him up and found him to be tachycardic, heart rate 120-130 and hypoxic. The only treatment provided en route was oxygen. Per EMS the patient has reportedly COVID and flu negative Review of Systems Unable to obtain: Dementia Constitutional: reports: Fever, Chills Nose: reports: Rhinorrhea / runny nose, Congestion Respiratory: reports: Dyspnea, Cough, Wheezing PD PAST MEDICAL HISTORY - Past Medical History Cardiovascular: None Respiratory: COPD Neuro: Dementia Endocrine/Autoimmune: None : Benign prostate hypertrophy, Indwelling catheter Psych: Depression Musculoskeletal: Osteoarthritis - Past Surgical History Past Surgical History: Yes Ortho: Amputation - Present Medications Home Medications: Ambulatory Orders Medication Instructions Recorded Confirmed Albuterol Sulfate [Proair Hfa 2 puffs INH Q4H PRN #1 inh 07/27/21 09/02/21 Inhaler] Ipratropium [Atrovent] 1 puffs INH Q6H PRN #1 inh 07/27/21 09/02/21 Multivitamin W/Minerals [Theragran 1 tab PO DAILYWM #30 tablet 07/27/21 12/27/21 M] Tamsulosin [Flomax] 0.4 mg PO HS #30 cap 07/27/21 12/27/21 Thiamine [Vitamin B-1] 100 mg PO DAILY #30 tablet 07/27/21 12/27/21 polyethylene glycoL 3350 [Miralax] 17 gm PO DAILY PRN 08/04/21 09/02/21 OLANZapine ODT [Zyprexa Odt] 5 mg TL HS #30 tablet 08/06/21 12/27/21 Sertraline [Zoloft] 50 mg PO DAILY #30 tablet 08/06/21 12/27/21 Acetaminophen [Tylenol] 650 mg PO Q6H PRN 09/02/21 09/02/[address] [Depakote Dr] 250 mg PO BID 09/02/21 09/02/21 Nicotine 14 mg Patch [Nicoderm] 1 each TOP Q24H 09/02/21 09/02/21 diazePAM [Valium] 5 mg PO BID PRN 09/02/21 09/02/21 Oseltamivir [Tamiflu] 75 mg PO BID #10 cap 10/05/21 oxyCODONE [Roxicodone] 5 mg PO BID PRN #10 tablet 03/23/22 polyethylene glycoL 3350 [Miralax] 17 gm PO DAILY PRN #1 each 03/23/22 Albuterol Sulf [Ventolin Hfa 1 - 2 puffs INH Q4HR PRN #1 each 04/26/22 Inhaler] predniSONE [Deltasone] 10 mg PO [id number] #42 tab 04/26/22 - Allergies Allergies/Adverse Reactions: Allergies Allergy/AdvReac Type Severity Reaction Status Date / Time Influenza Virus Vaccines Allergy Unknown Verified 12/27/21 00:47 Penicillins Allergy Anaphylaxis Verified 12/27/21 00:47 - Social History Does the pt smoke?: Yes Smoking Status: Never smoker Does the pt drink ETOH?: Yes Does the pt have substance abuse?: No - Immunizations Immunizations: TDAP >10years/unknown - POLST Patient has POLST: No PD ED PE NORMAL - Vitals Vital signs reviewed: Yes - General General: No acute distress, Well developed/nourished, Other (Alert, oriented to person and place.) - HEENT HEENT: PERRL, Moist mucous membranes, Pharynx benign - Neck Neck: Supple, no meningeal sign - Cardiac Cardiac: Other (Tachycardic) - Respiratory Respiratory: Other (Mild respiratory distress with wheezing bilaterally) - Abdomen Abdomen: Soft, Non tender, Non distended - Derm Derm: Warm and dry, No rash - Extremities Extremities: No edema, No calf tenderness / cord - Neuro Neuro: Other (Alert, oriented to person and place) - Psych Psych: Normal mood, Normal affect Results - Vitals Vitals: Vital Signs - 24 hr 04/26/22 04/26/22 04/26/22 14:44 14:58 15:24 Temperature 38.0 C H Heart Rate 133 H 130 H 124 H Respiratory 29 H 26 H Rate Blood Pressure 168/118 H 178/113 H O2 Saturation 87 L 94 96 If not protocol 2 2 : Oxygen Flow, liters/minute 04/26/22 04/26/22 04/26/22 15:30 15:35 15:54 Temperature Heart Rate 122 H 120 H 123 H Respiratory 23 24 22 Rate Blood Pressure O2 Saturation 94 If not protocol 2 : Oxygen Flow, liters/minute 04/26/22 04/26/22 04/26/22 16:00 16:30 17:30 Temperature Heart Rate 133 H 132 H 127 H Respiratory 23 22 24 Rate Blood Pressure 194/99 H 142/97 H 181/84 H O2 Saturation 95 94 95 If not protocol 2 2 2 : Oxygen Flow, liters/minute 04/26/22 04/26/22 04/26/22 17:54 18:00 18:30 Temperature Heart Rate 129 H 132 H 126 H Respiratory 26 H 15 20 Rate Blood Pressure 145/95 H 147/67 H O2 Saturation 96 92 If not protocol 2 2 : Oxygen Flow, liters/minute 04/26/22 19:00 Temperature Heart Rate 125 H Respiratory 23 Rate Blood Pressure 147/67 H O2 Saturation 93 If not protocol 2 : Oxygen Flow, liters/minute Oxygen O2 Source Nasal cannula Oxygen Flow Rate 2 - EKG (time done) 1442 Rate: Rate (enter#) (134) Rhythm: Sinus tachycardia [place]: Normal Intervals: Normal NC QRS: Normal Ischemia: ST depression (Minimal ST depression in the lateral leads, likely rate-related) - Labs Labs: Laboratory Tests 04/26/22 04/26/22 04/26/22 15:04 15:04 15:16 WBC 11.1 H RBC 4.14 L Hgb 11.7 L Hct 36.3 L MCV 87.7 MCH 28.3 MCHC 32.2 RDW 15.9 H Plt Count 352 MPV 9.7 Neut # (Auto) Not Reportable Lymph # (Auto) Not Reportable [place] # (Auto) Not Reportable Eos # (Auto) Not Reportable Baso # (Auto) Not Reportable Absolute Nucleated RBC Not Reportable Total Counted 100 Band Neuts % (Manual) 0 Abnorm Lymph % (Manual) 0 Nucleated RBC % Not Reportable Neutrophils # (Manual) 7.9 H Lymphocytes # (Manual) 0.7 L Monocytes # (Manual) 2.6 H Eosinophils # (Manual) 0.0 Basophils # (Manual) 0.0 Differential Comment MANUAL DIFFERENTIAL WBC Morphology NORMAL APPEARANCE Platelet Estimate NORMAL (130-450,000) Platelet Morphology NORMAL APPEARANCE RBC Morph Micro Appear NORMAL APPEARANCE Sodium 130 L Potassium 4.6 Chloride 96 L Carbon Dioxide 26 Anion Gap 8.0 BUN 25 H Creatinine 0.8 Estimated GFR (MDRD) 96 Glucose 114 H Calcium 9.3 Phosphorus 3.3 Magnesium 1.7 Total Bilirubin 0.4 AST 29 ALT 27 Alkaline Phosphatase 115 Total Protein 8.6 H Albumin 4.2 Globulin 4.4 H Albumin/Globulin Ratio 1.0 Lipase 58 H Nasal Adenovirus (PCR) NOT DETECTED Nasal B. parapertussis DNA (PCR) NOT DETECTED Nasal Coronavir 229E PCR NOT DETECTED Nasal Coronavir HKU1 PCR NOT DETECTED Nasal Coronavir NL63 PCR NOT DETECTED Nasal Coronavir OC43 PCR NOT DETECTED Nasal Enterovir/Rhinovir PCR NOT DETECTED Nasal Influenza B PCR NOT DETECTED Nasal Influenza A PCR NOT DETECTED Nasal Parainfluen 1 PCR NOT DETECTED Nasal Parainfluen 2 PCR NOT DETECTED Nasal Parainfluen 3 PCR NOT DETECTED Nasal Parainfluen 4 PCR NOT DETECTED Nasal RSV (PCR) DETECTED A Nasal B.pertussis DNA PCR NOT DETECTED Nasal C.pneumoniae (PCR) NOT DETECTED [place] Human Metapneumo PCR NOT DETECTED Nasal M.pneumoniae (PCR) NOT DETECTED Nasal SARS-CoV-2 (PCR) NOT DETECTED - Rads (name of study) cxr Radiology: Final report received, EMP read contemporaneously, See rad report PD MEDICAL DECISION MAKING - ED course Complexity details: reviewed results, re-evaluated patient, considered rosa bates, d/w patient, d/w family ED course: 67-year-old male presents with RSV and a COPD exacerbation. He was given steroids, breathing treatments. No evidence of pneumonia. No indication for antibiotics. Patient is borderline hypoxic, 90 to 92% on room air. His work of breathing has significantly decreased. Patient is [facility] at [facility]. I did confirm with the [facility] that they are able to apply oxygen if he needs it. An order was written for this. We will place him on a steroid taper. He will continue his nebulizer treatments. Patient and family counseled regarding signs and symptoms for which I believe and urgent re-evaluation would be necessary. Family with good understanding of and agreement to plan and is comfortable going home at this time This document was made in part using voice recognition software. While efforts are made to proofread this document, sound alike and grammatical errors may occur. Departure - Departure Disposition: 01 Home, Self Care Clinical Impression: COPD exacerbation, RSV bronchiolitis Condition: Good Instructions: ED RSV Bronchiolitis, ED COPD Flare Follow-Up: your,doctor in 3 days [Other] Prescriptions: Albuterol Sulf [Ventolin Hfa Inhaler] 1 - 2 puffs INH Q4HR PRN #1 each PRN Reason: Shortness Of Air/Wheezing predniSONE [Deltasone] 10 mg PO [id number] #42 tab Comments: Your prescriptions were sent to the [facility] pharmacy. You will need to use your albuterol inhaler approximately every 4 hours. This should be used with a spacer as well. Please take the steroids as prescribed. Please return if you worsen. You have tested positive for RSV tonight. There is no pneumonia on your chest x-ray. Discharge Date/Time: 04/26/22 19:27
[2022-04-26 15:13] LABS: BASOPHILS % (AUTO) 0.5 %; EOSINOPHILS % (AUTO) 0.6 %; HCT - HEMATOCRIT 36.3 % (42.0-52.0); HGB - HEMOGLOBIN 11.7 g/dL (14.0-18.0); LYMPHOCYTES % (AUTO) 7.1 %; MEAN CORPUSCULAR HEMOGLOBIN 28.3 pg (27.0-31.0); MEAN CORPUSCULAR HGB CONC 32.2 g/dL (32.0-36.0); MEAN CORPUSCULAR VOLUME 87.7 fL (80.0-94.0); MEAN PLATELET VOLUME 9.7 fL (7.4-11.4); MONOCYTES % (AUTO) 19.4 %; NEUTROPHILS % (AUTO) 71.7 %; PLT - PLATELET COUNT 352 10^3/uL (130-450); RED BLOOD COUNT 4.14 10^6/uL (4.70-6.10); RED CELL DISTRIBUTION WIDTH 15.9 % (12.0-15.0); WHITE BLOOD COUNT 11.1 x10^3/uL (4.8-10.8)
--- NOTE | 2022-04-26 15:19 | XRAY Report ---
PROCEDURE: Chest 1 View X-Ray INDICATIONS: cough, dyspnea TECHNIQUE: One view of the chest was acquired. COMPARISON: 03/23/2022 FINDINGS: Surgical changes and devices: None. Lungs and pleura: Minimal bibasilar opacities. No dense consolidation or pleural effusion. Mediastinum: Mediastinal contours appear normal. Heart size is normal. Bones and chest wall: No suspicious bony lesions. Overlying soft tissues appear unremarkable. Susp ected left lower rib fracture. IMPRESSION: Minimal bibasilar opacities could represent atelectasis or early airspace disease such as aspiration. Consider future imaging surveillance to assess for resolution. No pleural effusions. Suspected left lower rib fracture is partially seen on this single view radiograph. Reviewed by: Eb Hassan MD on 04/26/2022 3:18 PM PST Approved by: Eb Hassan MD on 04/26/2022 3:18 PM PST Station ID: [id number]
[2022-04-26 15:22] LABS: ABNORMAL LYMPHS % (MANUAL) 0 %; ALBUMIN 4.2 g/dL (3.2-5.5); BAND NEUTROPHILS % (MANUAL) 0 %; BILIRUBIN,TOTAL 0.4 mg/dL (0.2-1.0); CALCIUM 9.3 mg/dL (8.5-10.3); CREATININE 0.8 mg/dL (0.6-1.2); MAGNESIUM 1.7 mg/dL (1.7-2.8); PHOSPHORUS 3.3 mg/dL (2.5-4.6); POTASSIUM 4.6 mmol/L (3.5-5.0); TOTAL PROTEIN 8.6 g/dL (6.7-8.2)
[2022-04-26] MEDS ORDERED: ALBUTEROL NEB 2.5 MG/3 ML INH STA ×2 (15:45→17:21)
[2022-04-26] MEDS ORDERED: MAGNESIUM SULFATE 2 GRAM 2 GM/50 ML BAG IV ONE (15:46)
[2022-04-26 15:51] LABS: DIFFERENTIAL COMMENT MANUAL DIFFERENTIAL; LYMPHOCYTES # (MANUAL) 0.7 10^3/uL (1.5-3.5); LYMPHOCYTES % (MANUAL) 6 %; MONOCYTES # (MANUAL) 2.6 10^3/uL (0.0-1.0); NEUTROPHILS # (MANUAL) 7.9 10^3/uL (1.5-6.6); PLATELET ESTIMATE, MANUAL NORMAL (130-450,000) (NORMAL); PLATELET MORPHOLOGY NORMAL APPEARANCE (NORMAL); RBC MORPHOLOGY (MULTIPLE) NORMAL APPEARANCE (NORMAL); WBC MORPHOLOGY (MULTIPLE) NORMAL APPEARANCE (NORMAL)
[2022-04-26 16:56] LABS: CORONAVIRUS 229E-RESP PCR NOT DETECTED; CORONAVIRUS HKU1-RESP PCR NOT DETECTED; CORONAVIRUS NL63-RESP PCR NOT DETECTED; CORONAVIRUS OC43-RESP PCR NOT DETECTED; HUMAN METAPNEUMOVIRUS NOT DETECTED; INFLUENZA A- RESP PCR PANEL NOT DETECTED; RHINOVIRUS/ENTEROVIRUS NOT DETECTED; SARS-CoV-2 -RESP PCR PANEL NOT DETECTED
[2022-04-26 16:57] LABS: B. PARAPERTUSSIS- RESP PCR PAN NOT DETECTED; B. PERTUSSIS- RESP PCR PANEL NOT DETECTED; C. PNEUMONIAE- RESP PCR PANEL NOT DETECTED; INFLUENZA B - RESP PCR PANEL NOT DETECTED; M. PNEUMONIAE- RESP PCR PANEL NOT DETECTED; PARAINFLUENZA VIRUS 1 NOT DETECTED; PARAINFLUENZA VIRUS 2 NOT DETECTED; PARAINFLUENZA VIRUS 3 NOT DETECTED; PARAINFLUENZA VIRUS 4 NOT DETECTED; RSV- RESP PCR PANEL DETECTED
[2022-04-26] MEDS ORDERED: predniSONE 20 MG TABLET PO STA (17:21)
[2022-04-26 18:38] VITALS: BP 147/67
== END 2022-04-26 19:27 | disposition home or self-care (01) ==
LOC: EDUNIT# → ED 14:35
DX: J44.1 Chronic obstructive pulmonary disease with (acute) exacerbation (principal); J20.5 Acute bronchitis due to respiratory syncytial virus; J44.0 Chronic obstructive pulmonary disease with (acute) lower respiratory infection; Z20.822 Contact with and (suspected) exposure to COVID-19
CPT/HCPCS: 36415; 71045; 80053; 83690; 83735; 84100; 85025; 87633; 93005; 94640; 96365; 96366; 96375; 99281; 99285; J7512

== ENCOUNTER 2022-04-26 19:28 | Outpatient (CLI) | payer MEDICARE, MEDICAID | END 2022-04-26 23:59 | disposition critical access hospital (66) | LOC: EMS 19:28 | DX: R06.03 Acute respiratory distress (principal); R06.2 Wheezing; R05.9 Cough, unspecified | CPT/HCPCS: A0425; A0428 ==

== ENCOUNTER 2022-06-21 15:28 | Outpatient (CLI) | payer MEDICARE, MEDICAID ==
[2022-06-21 16:52] LABS: GLUCOSE, URINE (UA) NEGATIVE (NEGATIVE); KETONES,URINE (UA) TRACE mg/dL (NEGATIVE); LEUKOCYTE ESTERASE, URINE LARGE (NEGATIVE); NITRITE,URINE POSITIVE (NEGATIVE); OCCULT BLOOD,URINE LARGE (NEGATIVE); PROTEIN,URINE >=300 mg/dL (NEGATIVE); UROBILINOGEN,URINE 1 (NORMAL) E.U./dL (NORMAL)
[2022-06-21 16:58] LABS: BILIRUBIN,URINE NEGATIVE (NEGATIVE); CLARITY,URINE CLOUDY (CLEAR); ICTOTEST,URINE NEGATIVE
[2022-06-21 17:07] LABS: BACTERIA,URINE Few /HPF (None Seen); RBC,URINE TNTC /HPF (0-5); SQUAMOUS EPITHELIAL CELL,UR NONE SEEN (<= Few)
== END 2022-06-21 23:59 | disposition home or self-care (01) ==
LOC: LAB.R 15:28
PROVIDERS: ATTEND Student in an Organized Health Care Education/Training Program
DX: N39.0 Urinary tract infection, site not specified (principal)
CPT/HCPCS: 81001; 81003; 87077; 87086; 87181

== ENCOUNTER 2022-06-22 12:01 | Outpatient (CLI) | payer MEDICARE, MEDICAID ==
[2022-06-22 12:13] LABS: BASOPHILS % (AUTO) 0.5 %; EOSINOPHILS # (AUTO) 0.2 10^3/uL (0.0-0.7); HCT - HEMATOCRIT 37.8 % (42.0-52.0); HGB - HEMOGLOBIN 11.9 g/dL (14.0-18.0); LYMPHOCYTES # (AUTO) 1.4 10^3/uL (1.5-3.5); LYMPHOCYTES % (AUTO) 17.4 %; MEAN CORPUSCULAR HEMOGLOBIN 28.1 pg (27.0-31.0); MEAN CORPUSCULAR HGB CONC 31.5 g/dL (32.0-36.0); MEAN CORPUSCULAR VOLUME 89.4 fL (80.0-94.0); MEAN PLATELET VOLUME 9.9 fL (7.4-11.4); MONOCYTES # (AUTO) 1.2 10^3/uL (0.0-1.0); MONOCYTES % (AUTO) 14.6 %; NEUTROPHILS # (AUTO) 5.1 10^3/uL (1.5-6.6); PLT - PLATELET COUNT 351 10^3/uL (130-450); RED BLOOD COUNT 4.23 10^6/uL (4.70-6.10); RED CELL DISTRIBUTION WIDTH 17.7 % (12.0-15.0); WHITE BLOOD COUNT 7.9 x10^3/uL (4.8-10.8)
[2022-06-22 12:26] LABS: ALBUMIN 4.1 g/dL (3.2-5.5); ALBUMIN/GLOBULIN RATIO 1.1 (1.0-2.2); BILIRUBIN,TOTAL 0.5 mg/dL (0.2-1.0); CALCIUM 8.9 mg/dL (8.5-10.3); CREATININE 0.9 mg/dL (0.6-1.2); POTASSIUM 4.4 mmol/L (3.5-5.0); TOTAL PROTEIN 7.8 g/dL (6.7-8.2)
== END 2022-06-22 12:02 | disposition home or self-care (01) ==
LOC: LAB.R 12:01
PROVIDERS: ATTEND Student in an Organized Health Care Education/Training Program
DX: R50.9 Fever, unspecified (principal); R62.7 Adult failure to thrive; R53.1 Weakness; N39.0 Urinary tract infection, site not specified
CPT/HCPCS: 80053; 85025

== ENCOUNTER 2022-07-24 12:35 | Outpatient (CLI) | payer MEDICARE, MEDICAID ==
[2022-07-24 12:45] LABS: BILIRUBIN,URINE NEGATIVE (NEGATIVE); GLUCOSE, URINE (UA) NEGATIVE (NEGATIVE); KETONES,URINE (UA) NEGATIVE (NEGATIVE); LEUKOCYTE ESTERASE, URINE MODERATE (NEGATIVE); NITRITE,URINE NEGATIVE (NEGATIVE); OCCULT BLOOD,URINE MODERATE (NEGATIVE); PROTEIN,URINE >=300 mg/dL (NEGATIVE); UROBILINOGEN,URINE 0.2 (NORMAL) E.U./dL (NORMAL)
[2022-07-24 12:48] LABS: CLARITY,URINE SL. CLOUDY (CLEAR)
[2022-07-24 13:23] LABS: WBC CLUMPS,URINE PRESENT; WBC,URINE >25 /HPF (0-3)
[2022-07-24 13:24] LABS: BACTERIA,URINE Moderate /HPF (None Seen); SQUAMOUS EPITHELIAL CELL,UR FEW Squamous (<= Few)
[2022-07-24 13:26] LABS: CRYSTALS,URINE 3-5 Triple Phosphate /LPF
== END 2022-07-24 12:36 | disposition home or self-care (01) ==
LOC: LAB.R 12:35
PROVIDERS: ATTEND Registered Nurse
DX: N39.0 Urinary tract infection, site not specified (principal)
CPT/HCPCS: 81001

== ENCOUNTER 2022-08-01 15:17 | Outpatient (CLI) | payer MEDICARE, MEDICAID ==
--- NOTE | 2022-08-01 18:04 | XRAY Report ---
PROCEDURE: Chest 2 View X-Ray INDICATIONS: RULE OUT PNEUMONIA TECHNIQUE: 2 views of the chest were acquired. COMPARISON: 04/26/2022 FINDINGS: Surgical changes and devices: None. Lungs and pleura: No pleural effusions or pneumothorax. Patchy bibasilar atelectasis. Mediastinum: Mediastinal contours are normal. Heart size is normal. Bones and chest wall: No suspicious bony abnormalities. Soft tissues appear unremarkable. IMPRESSION: Patchy bibasilar atelectasis. Reviewed by: Eliecer Xiong MD on 08/01/2022 6:03 PM PDT Approved by: Eliecer Xiong MD on 08/01/2022 6:03 PM PDT Station ID: [id number]
== END 2022-08-01 15:18 | disposition home or self-care (01) ==
LOC: DI 15:17
PROVIDERS: ATTEND Registered Nurse
DX: J98.11 Atelectasis (principal)

== ENCOUNTER 2023-04-04 08:00 | Outpatient (CLI) | payer MEDICARE, MEDICAID ==
[2023-04-04 17:45] LABS: BILIRUBIN,URINE NEGATIVE (NEGATIVE); GLUCOSE, URINE (UA) NEGATIVE (NEGATIVE); KETONES,URINE (UA) NEGATIVE (NEGATIVE); LEUKOCYTE ESTERASE, URINE LARGE (NEGATIVE); NITRITE,URINE POSITIVE (NEGATIVE); OCCULT BLOOD,URINE LARGE (NEGATIVE); PH,URINE 7.5 PH (5.0-7.5); PROTEIN,URINE NEGATIVE (NEGATIVE); UROBILINOGEN,URINE 0.2 (NORMAL) E.U./dL (NORMAL)
[2023-04-04 17:46] LABS: CLARITY,URINE CLOUDY (CLEAR)
[2023-04-04 18:07] LABS: AMORPHOUS SEDIMENT,UR Moderate /LPF; BACTERIA,URINE Many /HPF (None Seen); SQUAMOUS EPITHELIAL CELL,UR NONE SEEN (<= Few)
== END 2023-04-04 23:59 | disposition home or self-care (01) ==
LOC: LAB.R 08:00
PROVIDERS: ATTEND Registered Nurse
DX: R41.82 Altered mental status, unspecified (principal)
CPT/HCPCS: 81001; 81003; 87077; 87086; 87181

== ENCOUNTER 2023-04-08 13:52 | Outpatient (CLI) | payer MEDICARE, MEDICAID | END 2023-04-08 23:59 | disposition critical access hospital (66) | LOC: EMS 13:52 | DX: R06.03 Acute respiratory distress (principal); Z99.81 Dependence on supplemental oxygen; R00.0 Tachycardia, unspecified | CPT/HCPCS: A0425; A0427 ==

== ENCOUNTER 2023-04-08 13:59 | Emergency (ER) | payer MEDICARE, MEDICAID ==
--- NOTE | 2023-04-08 14:02 | ED Physician Documentation ---
PD HPI DYSPNEA - Stated complaint Stated Complaint: SOA/POST CHOKING - History obtained from History obtained from: Patient, EMS - History of Present Illness Timing - onset: Today - Additional information Additional information: 68-year-old gentleman with history of COPD and dementia at a local nursing facility choked on a piece of ham at lunch today and then was coughing and more short of breath than usual. He is on oxygen at baseline. He is feeling somewhat better after the administration of a DuoNeb and Solu-Medrol on the way here. PD PAST MEDICAL HISTORY - Past Medical History Cardiovascular: None Respiratory: COPD Neuro: Dementia Endocrine/Autoimmune: None : Benign prostate hypertrophy, Indwelling catheter Psych: Depression Musculoskeletal: Osteoarthritis - Past Surgical History Past Surgical History: Yes Ortho: Amputation - Present Medications Home Medications: Ambulatory Orders Medication Instructions Recorded Confirmed Albuterol Sulfate [Proair Hfa 2 puffs INH Q4H PRN #1 inh 07/27/21 09/02/21 Inhaler] Ipratropium [Atrovent] 1 puffs INH Q6H PRN #1 inh 07/27/21 09/02/21 Multivitamin W/Minerals [Theragran 1 tab PO DAILYWM #30 tablet 07/27/21 12/27/21 M] Tamsulosin [Flomax] 0.4 mg PO HS #30 cap 07/27/21 12/27/21 Thiamine [Vitamin B-1] 100 mg PO DAILY #30 tablet 07/27/21 12/27/21 polyethylene glycoL 3350 [Miralax] 17 gm PO DAILY PRN 08/04/21 09/02/21 OLANZapine ODT [Zyprexa Odt] 5 mg TL HS #30 tablet 08/06/21 12/27/21 Sertraline [Zoloft] 50 mg PO DAILY #30 tablet 08/06/21 12/27/21 Acetaminophen [Tylenol] 650 mg PO Q6H PRN 09/02/21 09/02/21 Divalproex [Stephie Pacheco] 250 mg PO BID 09/02/21 09/02/21 Nicotine 14 mg Patch [Nicoderm] 1 each TOP Q24H 09/02/21 09/02/21 diazePAM [Valium] 5 mg PO BID PRN 09/02/21 09/02/21 Oseltamivir [Tamiflu] 75 mg PO BID #10 cap 10/05/21 oxyCODONE [Roxicodone] 5 mg PO BID PRN #10 tablet 03/23/22 polyethylene glycoL 3350(BULK) 17 gm PO DAILY PRN #1 each 03/23/22 [Miralax] Albuterol Sulf [Ventolin Hfa 1 - 2 puffs INH Q4HR PRN #1 each 04/26/22 Inhaler] predniSONE [Deltasone] 10 mg PO [id number] #42 tab 04/26/22 predniSONE [Deltasone] 60 mg PO DAILY 5 Days #15 tablet 04/08/23 - Allergies Allergies/Adverse Reactions: Allergies Allergy/AdvReac Type Severity Reaction Status Date / Time Influenza Virus Vaccines Allergy Unknown Verified 04/08/23 14:03 Penicillins Allergy Anaphylaxis Verified 04/08/23 14:03 - Social History Does the pt smoke?: Yes Smoking Status: Never smoker Does the pt drink ETOH?: Yes Does the pt have substance abuse?: No - Immunizations Immunizations: TDAP >10years/unknown - POLST Patient has POLST: No PD ED PE NORMAL - Vitals Vital signs reviewed: Yes - General General: Other (Demented and confused but cooperative) - Cardiac Cardiac: RRR, No murmur - Respiratory Respiratory: No respiratory distress, Other (Rhonchorous diminished breath sounds throughout, nonlabored) - Extremities Extremities: No edema, No calf tenderness / cord Results - Vitals Vitals: Vital Signs - 24 hr 04/08/23 04/08/23 14:03 14:07 Temperature 36.8 C 36.8 C Heart Rate 110 H 110 H Respiratory 24 22 Rate Blood Pressure 150/90 H 150/90 H O2 Saturation 99 99 Oxygen O2 Source Room air Oxygen Flow Rate 4 - Rads (name of study) Single view chest x-ray is unremarkable Relevant Findings:: Final report received, EMP independent interpretation of test PD Medical Decision Making - ED course ED course: 68-year-old gentleman with symptoms consistent with prior COPD exacerbation after a choking episode but no real evidence of aspiration or pneumonia/pneumonitis. Feeling better after a DuoNeb in route and received st eroids on route which I will continue it for a few days. Departure - Departure Disposition: 01 Home, Self Care Clinical Impression: COPD exacerbation Choking Qualifiers: Encounter type: initial encounter Qualified Code(s): T17.308A - Unspecified foreign body in larynx causing other injury, initial encounter Condition: Good Record reviewed to determine appropriate education?: Yes Instructions: ED COPD Flare Prescriptions: predniSONE [Deltasone] 60 mg PO DAILY 5 Days #15 tablet Comments: Farooq's chest x-ray looks fine and his vital signs were unremarkable. He received a DuoNeb and steroids and will continue the steroids for a few days. Return for new or worsening symptoms.
--- NOTE | 2023-04-08 14:31 | XRAY Report ---
PROCEDURE: Chest 1 View X-Ray INDICATIONS: dyspnea, aspiration TECHNIQUE: One view of the chest was acquired. COMPARISON: Chest radiograph August 01, 2022 FINDINGS: Surgical changes and devices: None. Lungs and pleura: No pleural effusions or pneumothorax. Lungs are clear. Mediastinum: Mediastinal contours appear normal. Heart size is normal. Bones and chest wall: No suspicious bony lesions. Overlying soft tissues appear unremarkable. IMPRESSION: No acute cardiopulmonary process. Reviewed by: Travis Smith MD on 04/08/2023 1:30 PM [facility] Approved by: Travis Smith MD on 04/08/2023 1:30 PM [facility] Station ID: [id number]
[2023-04-08 15:22] VITALS: BP 130/88; O2SAT 100
== END 2023-04-08 15:16 | disposition home or self-care (01) ==
LOC: EDUNIT# → ED 13:59
DX: T17.328A Food in larynx causing other injury, initial encounter (principal); W44.8XXA Other foreign body entering into or through a natural orifice, initial encounter
CPT/HCPCS: 99283; 99284

== ENCOUNTER 2023-04-08 15:21 | Outpatient (CLI) | payer MEDICARE, MEDICAID | END 2023-04-08 15:22 | LOC: EMS 15:21 | PROVIDERS: ATTEND Emergency Medicine | DX: R41.0 Disorientation, unspecified (principal); F03.90 Unspecified dementia, unspecified severity, without behavioral disturbance, psychotic disturbance, mood disturbance, and anxiety; J44.9 Chronic obstructive pulmonary disease, unspecified | CPT/HCPCS: A0425; A0428 ==

== ENCOUNTER 2023-05-11 12:42 | Outpatient (CLI) | payer MEDICARE | END 2023-05-11 12:43 | disposition critical access hospital (66) | LOC: EMS 12:42 | DX: R06.02 Shortness of breath (principal); R06.2 Wheezing | CPT/HCPCS: A0425; A0429 ==

== ENCOUNTER 2023-05-11 12:49 | Emergency (ER) | payer MEDICAID, MEDICARE ==
--- NOTE | 2023-05-11 13:02 | ED Physician Documentation ---
PD HPI DYSPNEA - Stated complaint Stated Complaint: SOA - Chief complaint Chief Complaint: General - History obtained from History obtained from: EMS - Additional information Additional information: 68-year-old male with history of alcohol induced dementia, [facility] resident presents by EMS from his nursing facility for shortness of breath. Patient has history of aspiration events and apparently aspirated on breakfast this morning. He has had gradually worsening shortness of breath throughout the day, and with gradually worsening shortness of breath the staff decided to call 911. EMS repo rts that patient was on 6 L nasal cannula with saturations 95 to 96%. He apparently does chronically wear oxygen, but usually only 2L at a time. On arrival patient is red-faced, actively trying to cough Review of Systems Unable to obtain: Dementia PD PAST MEDICAL HISTORY - Past Medical History Past Medical History: Yes Cardiovascular: None Respiratory: COPD Neuro: Dementia Endocrine/Autoimmune: None : Benign prostate hypertrophy, Indwelling catheter Psych: Depression Musculoskeletal: Osteoarthritis - Past Surgical History Past Surgical History: Yes Ortho: Amputation - Present Medications Home Medications: Ambulatory Orders Medication Instructions Recorded Confirmed Albuterol Sulfate [Proair Hfa 2 puffs INH Q4H PRN #1 inh 07/27/21 09/02/21 Inhaler] Ipratropium [Atrovent] 1 puffs INH Q6H PRN #1 inh 07/27/21 09/02/21 Multivitamin W/Minerals [Theragran 1 tab PO DAILYWM #30 tablet 07/27/21 12/27/21 M] Tamsulosin [Flomax] 0.4 mg PO HS #30 cap 07/27/21 12/27/21 Thiamine [Vitamin B-1] 100 mg PO DAILY #30 tablet 07/27/21 12/27/21 polyethylene glycoL 3350 [Miralax] 17 gm PO DAILY PRN 08/04/21 09/02/21 OLANZapine ODT [Zyprexa Odt] 5 mg TL HS #30 tablet 08/06/21 12/27/21 Sertraline [Zoloft] 50 mg PO DAILY #30 tablet 08/06/21 12/27/21 Acetaminophen [Tylenol] 650 mg PO Q6H PRN 09/02/21 09/02/21 Divalproex [Stephie Pacheco] 250 mg PO BID 09/02/21 09/02/21 Nicotine 14 mg Patch [Nicoderm] 1 each TOP Q24H 09/02/21 09/02/21 diazePAM [Valium] 5 mg PO BID PRN 09/02/21 09/02/21 Oseltamivir [Tamiflu] 75 mg PO BID #10 cap 10/05/21 oxyCODONE [Roxicodone] 5 mg PO BID PRN #10 tablet 03/23/22 polyethylene glycoL 3350(BULK) 17 gm PO DAILY PRN #1 each 03/23/22 [Miralax] Albuterol Sulf [Ventolin Hfa 1 - 2 puffs INH Q4HR PRN #1 each 04/26/22 Inhaler] predniSONE [Deltasone] 10 mg PO [id number] #42 tab 04/26/22 predniSONE [Deltasone] 60 mg PO DAILY 5 Days #15 tablet 04/08/23 - Allergies Allergies/Adverse Reactions: Allergies Allergy/AdvReac Type Severity Reaction Status Date / Time Influenza Virus Vaccines Allergy Unknown Verified 05/11/23 12:51 Penicillins Allergy Anaphylaxis Verified 05/11/23 12:51 - Social History Does the pt smoke?: Yes Smoking Status: Current every day smoker Does the pt drink ETOH?: Yes Does the pt have substance abuse?: No - Immunizations Immunizations: TDAP >10years/unknown - POLST Patient has POLST: No PD ED PE NORMAL - Vitals Vital signs reviewed: Yes - General General: Other (appears chronically unwell, actively coughing) - HEENT HEENT: Atraumatic - Neck Neck: Supple, no meningeal sign - Cardiac Cardiac: Other (tachycardia) - Respiratory Respiratory: Other (active nonproductive cough) - Abdomen Abdomen: Soft, Non tender, Non distended - Derm Derm: Normal color, Warm and dry, No rash - Extremities Extremities: No deformity, No tenderness to palpate, Normal ROM s pain - Neuro Neuro: Other (AOx2) Results - Vitals Vitals: Vital Signs - 24 hr 05/11/23 05/11/23 12:52 15:17 Temperature 36.9 C Heart Rate 140 H 121 H Respiratory 30 H 18 Rate Blood Pressure 160/110 H 196/103 H O2 Saturation 94 96 If not protocol 2 : Oxygen Flow, liters/minute Oxygen O2 Source Nasal cannula - Labs Labs: Laboratory Tests 05/11/23 05/11/23 05/11/23 12:54 13:11 13:11 WBC 12.1 H RBC 4.43 L Hgb 12.5 L Hct 39.4 L MCV 88.9 MCH 28.2 MCHC 31.7 L RDW 14.8 Plt Count 626 H MPV 8.7 Neut # (Auto) 8.4 H Lymph # (Auto) 2.1 [place] # (Auto) 1.2 H Eos # (Auto) 0.2 Baso # (Auto) 0.1 Absolute Nucleated RBC 0.00 Nucleated RBC % 0.0 PT 12.0 INR 1.1 Sodium 129 L Potassium 4.8 H Chloride 91 L Carbon Dioxide 25 Anion Gap 13.0 BUN 18 Creatinine 0.8 Estimated GFR (MDRD) 96 Glucose 99 Lactic Acid Calcium 9.8 Total Bilirubin 0.3 AST 16 ALT 15 Alkaline Phosphatase 83 Total Protein 8.2 Albumin 4.4 Globulin 3.8 Albumin/Globulin Ratio 1.2 Nasal Adenovirus (PCR) Nasal B. parapertussis DNA (PCR) Nasal Coronavir 229E PCR Nasal Coronavir HKU1 PCR Nasal Coronavir NL63 PCR Nasal Coronavir OC43 PCR Nasal Enterovir/Rhinovir PCR Nasal Influenza B PCR Nasal Influenza A PCR Nasal Parainfluen 1 PCR Nasal Parainfluen 2 PCR Nasal Parainfluen 3 PCR Nasal Parainfluen 4 PCR Nasal RSV (PCR) Nasal B.pertussis DNA PCR Nasal C.pneumoniae (PCR) [place] Human Metapneumo PCR Nasal M.pneumoniae (PCR) Nasal SARS-CoV-2 (PCR) 05/11/23 05/11/23 13:11 14:11 WBC RBC Hgb Hct MCV MCH MCHC RDW Plt Count MPV Neut # (Auto) Lymph # (Auto) [place] # (Auto) Eos # (Auto) Baso # (Auto) Absolute Nucleated RBC Nucleated RBC % PT INR Sodium Potassium Chloride Carbon Dioxide Anion Gap BUN Creatinine Estimated GFR (MDRD) Glucose Lactic Acid 2.5 H Calcium Total Bilirubin AST ALT Alkaline Phosphatase Total Protein Albumin Globulin Albumin/Globulin Ratio Nasal Adenovirus (PCR) NOT DETECTED Nasal B. parapertussis DNA (PCR) NOT DETECTED Nasal Coronavir 229E PCR NOT DETECTED Nasal Coronavir HKU1 PCR NOT DETECTED Nasal Coronavir NL63 PCR NOT DETECTED Nasal Coronavir OC43 PCR NOT DETECTED Nasal Enterovir/Rhinovir PCR NOT DETECTED Nasal Influenza B PCR NOT DETECTED Nasal Influenza A PCR NOT DETECTED Nasal Parainfluen 1 PCR NOT DETECTED Nasal Parainfluen 2 PCR NOT DETECTED Nasal Parainfluen 3 PCR NOT DETECTED Nasal Parainfluen 4 PCR NOT DETECTED Nasal RSV (PCR) NOT DETECTED Nasal B.pertussis DNA PCR NOT DETECTED Nasal C.pneumoniae (PCR) NOT DETECTED [place] Human Metapneumo PCR NOT DETECTED Nasal M.pneumoniae (PCR) NOT DETECTED Nasal SARS-CoV-2 (PCR) NOT DETECTED PD Medical Decision Making - ED course Complexity details: reviewed old records, reviewed results, re-evaluated patient, considered differential, d/w patient ED course: Chronically unwell appearing patient on comfort measures who is presenting after possible aspiration event. Actively coughing and hacking in exam room. Lung exam limited due to the amount and extent of patient coughing. Respiratory therapy paged on arrival to perform deep suctioning. Patient received 2 rounds of deep suctioning and is back on his normal 2 L nasal cannula. He is resting comfortably and there has been no more coughing fits witnessed. Patient is still mildly tachycardic at a rate of approximately 115 bpm, however he is comfort care only and his POLST specifically request only symptomatic treatment. Patient will be discharged back to his facility. Mother at bedside informed. Power of litigation attorney associate contacted by phone and is in agreement with plan. Departure - Departure Disposition: 01 Home, Self Care Clinical Impression: Aspiration into airway Condition: Stable Instructions: Dysphagia Diet Forms: PCP List Discharge Date/Time: 05/11/23 18:59
[2023-05-11 13:21] LABS: BASOPHILS # (AUTO) 0.1 10^3/uL (0.0-0.1); BASOPHILS % (AUTO) 0.4 %; EOSINOPHILS # (AUTO) 0.2 10^3/uL (0.0-0.7); EOSINOPHILS % (AUTO) 1.5 %; HCT - HEMATOCRIT 39.4 % (42.0-52.0); HGB - HEMOGLOBIN 12.5 g/dL (14.0-18.0); LYMPHOCYTES # (AUTO) 2.1 10^3/uL (1.5-3.5); LYMPHOCYTES % (AUTO) 17.1 %; MEAN CORPUSCULAR HEMOGLOBIN 28.2 pg (27.0-31.0); MEAN CORPUSCULAR HGB CONC 31.7 g/dL (32.0-36.0); MEAN CORPUSCULAR VOLUME 88.9 fL (80.0-94.0); MEAN PLATELET VOLUME 8.7 fL (7.4-11.4); MONOCYTES # (AUTO) 1.2 10^3/uL (0.0-1.0); MONOCYTES % (AUTO) 9.8 %; NEUTROPHILS # (AUTO) 8.4 10^3/uL (1.5-6.6); NEUTROPHILS % (AUTO) 69.4 %; PLT - PLATELET COUNT 626 10^3/uL (130-450); RED BLOOD COUNT 4.43 10^6/uL (4.70-6.10); RED CELL DISTRIBUTION WIDTH 14.8 % (12.0-15.0); WHITE BLOOD COUNT 12.1 x10^3/uL (4.8-10.8)
[2023-05-11 13:36] LABS: INR 1.1 (0.8-1.2)
[2023-05-11 13:47] LABS: ALBUMIN 4.4 g/dL (3.2-5.5); ALBUMIN/GLOBULIN RATIO 1.2 (1.0-2.2); BILIRUBIN,TOTAL 0.3 mg/dL (0.2-1.0); CALCIUM 9.8 mg/dL (8.5-10.3); CREATININE 0.8 mg/dL (0.6-1.3); POTASSIUM 4.8 mmol/L (3.5-4.5); TOTAL PROTEIN 8.2 g/dL (6.4-8.9)
--- NOTE | 2023-05-11 14:05 | XRAY Report ---
PROCEDURE: Chest 1 View X-Ray INDICATIONS: dyspnea, hx aspiration TECHNIQUE: One view of the chest was acquired. COMPARISON: 04/08/23. FINDINGS: Surgical changes and devices: None. Lungs and pleura: No pleural effusions or pneumothorax. Subtle interstitial pulmonary edema. Mediastinum: Mediastinal contours appear normal. Heart size is normal. Bones and chest wall: No suspicious bony lesions. Overlying soft tissues appear unremarkable. IMPRESSION: Subtle interstitial pulmonary edema. Reviewed by: Eliecer Xiong MD on 05/11/2023 2:03 PM PST Approved by: Eliecer Xiong MD on 05/11/2023 2:03 PM PST Station ID: [id number]
[2023-05-11 15:22] LABS: B. PARAPERTUSSIS- RESP PCR PAN NOT DETECTED; B. PERTUSSIS- RESP PCR PANEL NOT DETECTED; C. PNEUMONIAE- RESP PCR PANEL NOT DETECTED; CORONAVIRUS 229E-RESP PCR NOT DETECTED; CORONAVIRUS HKU1-RESP PCR NOT DETECTED; CORONAVIRUS NL63-RESP PCR NOT DETECTED; CORONAVIRUS OC43-RESP PCR NOT DETECTED; HUMAN METAPNEUMOVIRUS NOT DETECTED; INFLUENZA A- RESP PCR PANEL NOT DETECTED; INFLUENZA B - RESP PCR PANEL NOT DETECTED; M. PNEUMONIAE- RESP PCR PANEL NOT DETECTED; PARAINFLUENZA VIRUS 1 NOT DETECTED; PARAINFLUENZA VIRUS 2 NOT DETECTED; PARAINFLUENZA VIRUS 3 NOT DETECTED; PARAINFLUENZA VIRUS 4 NOT DETECTED; RHINOVIRUS/ENTEROVIRUS NOT DETECTED; RSV- RESP PCR PANEL NOT DETECTED; SARS-CoV-2 -RESP PCR PANEL NOT DETECTED
[2023-05-11 15:23] VITALS: BP 196/103; O2SAT 96
== END 2023-05-11 18:59 | disposition home or self-care (01) ==
LOC: EDUNIT# → ED 12:49
DX: T17.908A Unspecified foreign body in respiratory tract, part unspecified causing other injury, initial encounter (principal); W44.9XXA Unspecified foreign body entering into or through a natural orifice, initial encounter; Y92.129 Unspecified place in nursing home as the place of occurrence of the external cause; R00.0 Tachycardia, unspecified; Z99.81 Dependence on supplemental oxygen; F17.200 Nicotine dependence, unspecified, uncomplicated
CPT/HCPCS: 36415; 80053; 83605; 85025; 85610; 87040; 87633; 93005; 99283; 99284

== ENCOUNTER 2023-05-11 18:46 | Outpatient (CLI) | payer MEDICARE | END 2023-05-11 18:47 | LOC: EMS 18:46 | DX: R41.0 Disorientation, unspecified (principal); Z99.81 Dependence on supplemental oxygen | CPT/HCPCS: A0425; A0428 ==

== ENCOUNTER 2023-05-22 15:14 | Outpatient (CLI) | payer MEDICARE, MEDICAID | END 2023-05-22 15:15 | disposition home or self-care (01) | LOC: LAB.R 15:14 | PROVIDERS: ATTEND Registered Nurse | DX: I10 Essential (primary) hypertension (principal) | CPT/HCPCS: 80048 ==

== ENCOUNTER 2023-09-04 12:06 | Outpatient (CLI) | payer MEDICARE, MEDICAID ==
[2023-09-04 12:31] LABS: ALBUMIN 4.2 g/dL (3.2-5.5); ALBUMIN/GLOBULIN RATIO 1.3 (1.0-2.2); BILIRUBIN,TOTAL 0.3 mg/dL (0.2-1.0); CALCIUM 9.8 mg/dL (8.5-10.3); CREATININE 0.9 mg/dL (0.6-1.3); POTASSIUM 4.5 mmol/L (3.5-4.5); TOTAL PROTEIN 7.4 g/dL (6.4-8.9)
== END 2023-09-04 12:07 | disposition home or self-care (01) ==
LOC: LAB 12:06
PROVIDERS: ATTEND Registered Nurse
DX: I10 Essential (primary) hypertension (principal)
CPT/HCPCS: 36415; 80053

== ENCOUNTER 2023-11-05 12:47 | Outpatient (CLI) | payer MEDICARE, MEDICAID ==
--- NOTE | 2023-11-05 13:56 | Ultrasound Report ---
PROCEDURE: Soft Tissue Head or Neck INDICATIONS: MASS ON FOREHEAD TECHNIQUE: Real-time scanning was performed of the femoral head, with image documentation. COMPARISON: None FINDINGS: Ultrasound examination of 4 head near midline at patient's reported area of palpable lump shows a 2.3 x 0.7 x 2.5 cm solid appearing structure within subcutaneous soft tissue and is similar in echotextu re compared to adjacent subcutaneous fat. No internal vascularity is seen. IMPRESSION: Finding may represent a 2.3 x 0.7 x 2.5 cm lipoma in mid forehead soft tissue, suggest c linical correlation and follow-up. Reviewed by: Kerwin Coronado MD on 11/05/2023 1:55 PM PDT Approved by: Kerwin Coronado MD on 11/05/2023 1:55 PM PDT Station ID: [id number]
== END 2023-11-05 12:48 | disposition home or self-care (01) ==
LOC: DI 12:47
PROVIDERS: ATTEND Family Medicine
DX: R22.0 Localized swelling, mass and lump, head (principal)

== ENCOUNTER 2023-11-27 08:00 | Outpatient (CLI) | payer MEDICARE, MEDICAID ==
[2023-11-27 16:15] LABS: BILIRUBIN,URINE SMALL (NEGATIVE); GLUCOSE, URINE (UA) NEGATIVE (NEGATIVE); KETONES,URINE (UA) NEGATIVE (NEGATIVE); LEUKOCYTE ESTERASE, URINE LARGE (NEGATIVE); NITRITE,URINE POSITIVE (NEGATIVE); OCCULT BLOOD,URINE LARGE (NEGATIVE); PROTEIN,URINE 100 mg/dL (NEGATIVE); UROBILINOGEN,URINE 1 (NORMAL) E.U./dL (NORMAL)
[2023-11-27 16:25] LABS: BACTERIA,URINE Many /HPF (None Seen); CLARITY,URINE CLOUDY (CLEAR); RBC,URINE TNTC /HPF (0-5); SQUAMOUS EPITHELIAL CELL,UR NONE SEEN (<= Few); WBC,URINE >25 /HPF (0-3)
== END 2023-11-27 23:59 | disposition home or self-care (01) ==
LOC: LAB.R 08:00
DX: R30.0 Dysuria (principal)
CPT/HCPCS: 81001; 81003

== ENCOUNTER 2023-11-28 08:00 | Outpatient (CLI) | payer MEDICARE, MEDICAID ==
[2023-11-28 16:42] LABS: BILIRUBIN,URINE NEGATIVE (NEGATIVE); GLUCOSE, URINE (UA) NEGATIVE (NEGATIVE); KETONES,URINE (UA) NEGATIVE (NEGATIVE); LEUKOCYTE ESTERASE, URINE LARGE (NEGATIVE); NITRITE,URINE POSITIVE (NEGATIVE); OCCULT BLOOD,URINE LARGE (NEGATIVE); PROTEIN,URINE 100 mg/dL (NEGATIVE); UROBILINOGEN,URINE 1 (NORMAL) E.U./dL (NORMAL)
[2023-11-28 16:52] LABS: CLARITY,URINE CLOUDY (CLEAR)
[2023-11-28 16:53] LABS: AMORPHOUS SEDIMENT,UR Few /LPF; BACTERIA,URINE Many /HPF (None Seen); SQUAMOUS EPITHELIAL CELL,UR NONE SEEN (<= Few); WBC,URINE >25 /HPF (0-3)
== END 2023-11-28 23:59 | disposition home or self-care (01) ==
LOC: LAB.R 08:00
PROVIDERS: ATTEND Registered Nurse
DX: R31.9 Hematuria, unspecified (principal)
CPT/HCPCS: 81001; 81003; 87077; 87086; 87181

== ENCOUNTER 2023-11-30 10:28 | Outpatient (CLI) | payer MEDICARE, MEDICAID | END 2023-11-30 23:59 | disposition critical access hospital (66) | LOC: EMS 10:28 | DX: S00.81XA Abrasion of other part of head, initial encounter (principal); S00.31XA Abrasion of nose, initial encounter; S00.12XA Contusion of left eyelid and periocular area, initial encounter; S61.412A Laceration without foreign body of left hand, initial encounter; S61.411A Laceration without foreign body of right hand, initial encounter; W05.0XXA Fall from non-moving wheelchair, initial encounter; Y92.128 Other place in nursing home as the place of occurrence of the external cause | CPT/HCPCS: A0425; A0429 ==

== ENCOUNTER 2023-11-30 10:42 | Emergency (ER) | payer MEDICARE, MEDICAID ==
--- NOTE | 2023-11-30 11:43 | ED Physician Documentation ---
PD HPI MAJOR TRAUMA - Stated complaint Stated Complaint: FALL - Chief complaint Chief Complaint: Trauma Hd/Nk - History obtained from History obtained from: Patient - Additional information Additional information: 68-year-old gentleman brought in from [facility], for a fall. He he says he slipped on concrete and went face first. Complains of facial and neck pain. Also has a scrape on the right hand but he says that not bothering him. No loss of consciousness. PD PAST MEDICAL HISTORY - Past Medical History Cardiovascular: None Respiratory: COPD Neuro: Dementia Endocrine/Autoimmune: None : Benign prostate hypertrophy, Indwelling catheter Psych: Depression Musculoskeletal: Osteoarthritis - Past Surgical History Past Surgical History: Yes Ortho: Amputation - Present Medications Home Medications: Ambulatory Orders Medication Instructions Recorded Confirmed Albuterol Sulfate [Proair Hfa 2 puffs INH Q4H PRN #1 inh 07/27/21 09/02/21 Inhaler] Ipratropium [Atrovent] 1 puffs INH Q6H PRN #1 inh 07/27/21 09/02/21 Multivitamin W/Minerals [Theragran 1 tab PO DAILYWM #30 tablet 07/27/21 12/27/21 M] Tamsulosin [Flomax] 0.4 mg PO HS #30 cap 07/27/21 12/27/21 Thiamine [Vitamin B-1] 100 mg PO DAILY #30 tablet 07/27/21 12/27/21 polyethylene glycoL 3350 [Miralax] 17 gm PO DAILY PRN 08/04/21 09/02/21 OLANZapine ODT [Zyprexa Odt] 5 mg TL HS #30 tablet 08/06/21 12/27/21 Sertraline [Zoloft] 50 mg PO DAILY #30 tablet 08/06/21 12/27/21 Acetaminophen [Tylenol] 650 mg PO Q6H PRN 09/02/21 09/02/21 Divalproex [Stephie Pacheco] 250 mg PO BID 09/02/21 09/02/21 Nicotine 14 mg Patch [Nicoderm] 1 each TOP Q24H 09/02/21 09/02/21 diazePAM [Valium] 5 mg PO BID PRN 09/02/21 09/02/21 Oseltamivir [Tamiflu] 75 mg PO BID #10 cap 10/05/21 oxyCODONE [Roxicodone] 5 mg PO BID PRN #10 tablet 03/23/22 polyethylene glycoL 3350(BULK) 17 gm PO DAILY PRN #1 each 03/23/22 [Miralax] Albuterol Sulf [Ventolin Hfa 1 - 2 puffs INH Q4HR PRN #1 each 04/26/22 Inhaler] predniSONE [Deltasone] 10 mg PO [id number] #42 tab 04/26/22 predniSONE [Deltasone] 60 mg PO DAILY 5 Days #15 tablet 04/08/23 - Allergies Allergies/Adverse Reactions: Allergies Allergy/AdvReac Type Severity Reaction Status Date / Time Influenza Virus Vaccines Allergy Unknown Verified 11/30/23 10:57 Penicillins Allergy Anaphylaxis Verified 11/30/23 10:57 - Social History Does the pt smoke?: Yes Smoking Status: Current every day smoker Does the pt drink ETOH?: Yes Does the pt have substance abuse?: No - Immunizations Immunizations: TDAP >10years/unknown - POLST Patient has POLST: No PD ED PE NORMAL - Vitals Vital signs reviewed: Yes - General General: No acute distress, Other (He is alert and oriented to person and place, not a great historian regarding events) - HEENT HEENT: PERRL, EOMI, Other (Facial abrasions over the forehead, bridge of the nose, right infraorbital areas. No obvious bony tenderness. He is edentulous.) - Neck Neck: Other (Mild upper and mid C-spine tenderness) - Cardiac Cardiac: RRR, No murmur - Respiratory Respiratory: No respiratory distress - Abdomen Abdomen: Non tender - Back Back: No CVA TTP, No spinal TTP - Derm Derm: Normal color, Warm and dry - Extremities Extremities: Other (Abrasion on the dorsum of the right hand, he has a chronic contracture there, it is not tender. The remainder of his extremities are ranged with full range of motion and no tenderness.) - Neuro Eye Opening: Spontaneous Motor: Obeys Commands Verbal: Confused (mild) GCS Score: 14 - Psych Psych: Normal mood Results - Vitals Vitals: Vital Signs - 24 hr 11/30/23 10:51 Temperature 36.1 C L Heart Rate 72 Respiratory 20 Rate Blood Pressure 93/69 O2 Saturation 97 Oxygen O2 Source Nasal cannula - Rads (name of study) CT of the head and cervical spine were negative for traumatic injuries. Relevant Findings:: Final report received, EMP independent interpretation of test CT max facial CT showing likely old tip of nasal bone fracture (not tender there), otherwise negative Relevant Findings:: Final report received, EMP independent interpretation of test PD Medical Decision Making - ED course ED course: 68-year-old gentleman with facial injuries after a fall. CT imaging was negative. He did have an old nasal bone fracture and he says he "probably broke his nose previously. He is not tender at that spot. I asked him if he wanted me to call any family and he declined. Departure - Departure Disposition: 01 Home, Self Care Clinical Impression: Head injury Qualifiers: Encounter type: initial encounter Qualified Code(s): S09.90XA - Unspecified injury of head, initial encounter Facial abrasion Qualifiers: Encounter type: initial encounter Qualified Code(s): S00.81XA - Abrasion of other part of head, initial encounter Neck sprain Qualifiers: Encounter type: initial encounter Qualified Code(s): S13.9XXA - Sprain of joints and ligaments of unspecified parts of neck, initial encounter Condition: Good Record reviewed to determine appropriate education?: Yes Instructions: ED Abrasion, ED Head Injury Closed Comments: For the scrapes, they can be washed with soap and water then apply bacitracin ointment which is available [id number] and a appropriate dressing. Return for new or worsening symptoms. Forms: PCP List
[2023-11-30] MEDS: TETANUS/DIPHTHERIA/PERTUSSIS 0.5 ML SYRINGE IM ONE (12:16)
[2023-11-30] MEDS: ACETAMINOPHEN 500 MG TABLET PO STA (12:16)
--- NOTE | 2023-11-30 12:25 | CT Report ---
PROCEDURE: Head WO INDICATIONS: head/neck/face inj TECHNIQUE: Noncontrast 4.5 mm thick angled axial sections acquired from the foramen magnum to the vertex. For r adiation dose reduction, the following was used: automated exposure control, adjustment of mA and/or kV according to patient size. COMPARISON: Head CT dated 03/23/2022. FINDINGS: Image quality: Excellent. CSF spaces: Basal cisterns are patent. No extra-axial fluid collections. Ventricles are normal in size and shape. Brain: No midline shift. No intracranial masses or hemorrhage. Coon-white matter interface is norm al. Intracranial carotid calcifications. Age-related volume loss and small vessel ischemic change. Skull and face: Calvarium and visualized facial bones are intact, without suspicious lesions. Sinuses: Visualized sinuses and mastoids are clear. IMPRESSION: No acute intracranial pathology. Reviewed by: Eliecer Xiong MD on 11/30/2023 12:23 PM PDT Approved by: Eliecer Xiong MD on 11/30/2023 12:23 PM PDT Station ID: [id number]
--- NOTE | 2023-11-30 12:30 | CT Report ---
PROCEDURE: Cervical Spine WO INDICATIONS: head/neck/face inj TECHNIQUE: Noncontrast 3 mm thick sections acquired from the skull base to the T4 level. Sagittal and coronal r eformats were then constructed. For radiation dose reduction, the following was used: automated exp osure control, adjustment of mA and/or kV according to patient size. COMPARISON: 03/23/2022. FINDINGS: Image quality: Excellent. Bones: No fractures or dislocations. Visualized superior ribs are intact. Reversal of normal lordo tic curve of the cervical spine. This is increased from previous, and may represent muscle spasm. Tra ce anterolisthesis of C3 on C4. Multilevel degenerative disc height loss and uncovertebral joint hype rtrophy and multilevel facet arthropathy. Soft tissues: Prevertebral soft tissues are normal in thickness. No paravertebral hematomas. No ap ical pneumothoraces. Severe biapical emphysematous change. IMPRESSION: 1. No acute cervical fracture or dislocation identified. 2. Cervical spondylosis. Reviewed by: Eliecer Xiong MD on 11/30/2023 12:29 PM PDT Approved by: Eliecer Xiong MD on 11/30/2023 12:29 PM PDT Station ID: [id number]
--- NOTE | 2023-11-30 12:33 | CT Report ---
PROCEDURE: Maxillofacial WO INDICATIONS: head/neck/face inj TECHNIQUE: Noncontrast 1.5 mm thick axial images acquired from the mandible through the frontal sinuses, with co francisco and sagittal reformatting. For radiation dose reduction, the following was used: automated ex posure control, adjustment of mA and/or kV according to patient size. COMPARISON: None. FINDINGS: Image quality: Excellent. Bones and teeth: Orbital bledsoe are intact. Sinus bledsoe show no fracture or deformity. There is a ti p of the nasal bone fracture, presumed chronic. Nasal septum intact. Nasal septal deviation to the ri ght. Visualized portions of the mandible demonstrate no fractures or subluxation. Zygomatic arches a re intact. Pterygoid plates are intact. Visualized portions of the skull base and auditory canals a re intact. Patient is a patulous. Sinuses: Paranasal sinuses are aerated, without fluid levels, mucosal thickening, or mucoceles. Mas toid air cells are aerated. Soft tissues: Left periorbital edema and edema over the left forehead. No enlarged lymph nodes. No soft tissue lacerations or debris. Vascular: Visualized vascular structures appear normal in the absence of contrast. Bony vascular fo ramina and canals are intact. IMPRESSION: 1. Tip of nasal bone fracture is presumed to be chronic. 2. No other facial bone fractures or mandibular fractures. Reviewed by: Eliecer Xiong MD on 11/30/2023 12:31 PM PDT Approved by: Eliecer Xiong MD on 11/30/2023 12:31 PM PDT Station ID: [id number]
[2023-11-30 14:43] VITALS: BP 108/66; O2SAT 96
[2023-11-30] MEDS: MORPHINE 2 MG/ML CARPUJECT IVP STA (14:59)
== END 2023-11-30 15:04 | disposition home or self-care (01) ==
LOC: EDUNIT# → ED 10:42
DX: S00.81XA Abrasion of other part of head, initial encounter (principal); S00.31XA Abrasion of nose, initial encounter; S00.211A Abrasion of right eyelid and periocular area, initial encounter; S60.511A Abrasion of right hand, initial encounter; S13.9XXA Sprain of joints and ligaments of unspecified parts of neck, initial encounter; W01.0XXA Fall on same level from slipping, tripping and stumbling without subsequent striking against object, initial encounter; Z23 Encounter for immunization
CPT/HCPCS: 70450; 70486; 72125; 90471; 90715; 99283; 99284; A9270

== ENCOUNTER 2023-11-30 15:08 | Outpatient (CLI) | payer MEDICARE, MEDICAID | END 2023-11-30 23:59 | LOC: EMS 15:08 | PROVIDERS: ATTEND Emergency Medicine | DX: R41.0 Disorientation, unspecified (principal); S09.92XA Unspecified injury of nose, initial encounter; S09.90XA Unspecified injury of head, initial encounter; W05.0XXA Fall from non-moving wheelchair, initial encounter; F03.90 Unspecified dementia, unspecified severity, without behavioral disturbance, psychotic disturbance, mood disturbance, and anxiety | CPT/HCPCS: A0425; A0428 ==

== ENCOUNTER 2023-12-10 16:54 | Outpatient (CLI) | payer MEDICARE, MEDICAID ==
--- NOTE | 2023-12-10 19:07 | XRAY Report ---
PROCEDURE: Chest 2V INDICATIONS: WHEEZING, SOB TECHNIQUE: 2 views of the chest were acquired. COMPARISON: CT cervical spine 11/30/2023. CXR 06/22/2023. FINDINGS: Surgical changes and devices: None. Lungs and pleura: No pleural effusions or pneumothorax. Lungs appear clear. Emphysematous change. Mediastinum: Mediastinal contours appear normal. Heart size is normal. Bones and chest wall: No suspicious bony lesions. Overlying soft tissues appear unremarkable. IMPRESSION: No acute cardiopulmonary process. Emphysematous change. Reviewed by: Khang Kline MD on 12/10/2023 7:06 PM PDT Approved by: Khang Kline MD on 12/10/2023 7:06 PM PDT Station ID: [id number]
== END 2023-12-10 16:55 | disposition home or self-care (01) ==
LOC: DI 16:54
PROVIDERS: ATTEND Family Medicine
DX: R06.2 Wheezing (principal); J43.9 Emphysema, unspecified

== ENCOUNTER 2024-01-04 08:00 | Outpatient (CLI) | payer MEDICARE, MEDICAID ==
[2024-01-04 15:52] LABS: BASOPHILS % (AUTO) 0.1 %; EOSINOPHILS % (AUTO) 0.3 %; HCT - HEMATOCRIT 35.2 % (42.0-52.0); HGB - HEMOGLOBIN 11.3 g/dL (14.0-18.0); LYMPHOCYTES % (AUTO) 11.1 %; MEAN CORPUSCULAR HEMOGLOBIN 28.8 pg (27.0-31.0); MEAN CORPUSCULAR HGB CONC 32.1 g/dL (32.0-36.0); MEAN CORPUSCULAR VOLUME 89.8 fL (80.0-94.0); MEAN PLATELET VOLUME 9.3 fL (7.4-11.4); MONOCYTES # (AUTO) 0.6 10^3/uL (0.0-1.0); MONOCYTES % (AUTO) 6.4 %; NEUTROPHILS # (AUTO) 7.5 10^3/uL (1.5-6.6); NEUTROPHILS % (AUTO) 80.8 %; PLT - PLATELET COUNT 387 10^3/uL (130-450); RED BLOOD COUNT 3.92 10^6/uL (4.70-6.10); WHITE BLOOD COUNT 9.2 x10^3/uL (4.8-10.8)
[2024-01-04 16:17] LABS: ALBUMIN/GLOBULIN RATIO 1.3 (1.0-2.2); ALKALINE PHOSPHATASE 68 IU/L (42-121); ALT ALANINE AMINOTRANSFERASE 11 IU/L (10-60); AST ASPARTATE AMINOTRANSFERASE 13 IU/L (10-42); BILIRUBIN,TOTAL 0.3 mg/dL (0.2-1.0); BUN - BLOOD UREA NITROGEN 16 mg/dL (6-20); CALCIUM 9.2 mg/dL (8.5-10.3); CARBON DIOXIDE - CO2 27 mmol/L (21-32); CHLORIDE 92 mmol/L (101-111); CREATININE 0.7 mg/dL (0.6-1.3); GFR - MDRD 112 (>89); GLUCOSE 112 mg/dL (74-104); POTASSIUM 4.9 mmol/L (3.5-4.5); SODIUM 124 mmol/L (135-145)
[2024-01-04 16:23] LABS: THYROID STIMULATING HORMONE 0.66 uIU/mL (0.34-5.60)
== END 2024-01-04 23:59 | disposition home or self-care (01) ==
LOC: LAB.R 08:00
PROVIDERS: ATTEND Family Medicine
DX: I10 Essential (primary) hypertension (principal); R53.1 Weakness; G31.2 Degeneration of nervous system due to alcohol; E03.9 Hypothyroidism, unspecified
CPT/HCPCS: 80053; 80164; 84439; 84443; 85025

== ENCOUNTER 2024-02-01 15:27 | Outpatient (CLI) | payer MEDICARE, MEDICAID ==
[2024-02-01 15:35] LABS: BILIRUBIN,URINE NEGATIVE (NEGATIVE); GLUCOSE, URINE (UA) NEGATIVE (NEGATIVE); KETONES,URINE (UA) NEGATIVE (NEGATIVE); LEUKOCYTE ESTERASE, URINE MODERATE (NEGATIVE); NITRITE,URINE POSITIVE (NEGATIVE); OCCULT BLOOD,URINE TRACE-INTA (NEGATIVE); PROTEIN,URINE NEGATIVE (NEGATIVE); UROBILINOGEN,URINE 0.2 (NORMAL) E.U./dL (NORMAL)
[2024-02-01 15:36] LABS: CLARITY,URINE HAZY (CLEAR)
[2024-02-01 15:44] LABS: BACTERIA,URINE Moderate /HPF (None Seen); SQUAMOUS EPITHELIAL CELL,UR NONE SEEN (<= Few)
== END 2024-02-01 15:28 | disposition home or self-care (01) ==
LOC: LAB.R 15:27
PROVIDERS: ATTEND Family Medicine
DX: R30.0 Dysuria (principal)
CPT/HCPCS: 81001; 81003; 87077; 87086; 87181

== ENCOUNTER 2024-02-06 08:00 | Outpatient (CLI) | payer MEDICARE, MEDICAID ==
[2024-02-06 05:55] LABS: BASOPHILS % (AUTO) 0.5 %; EOSINOPHILS # (AUTO) 0.2 10^3/uL (0.0-0.7); EOSINOPHILS % (AUTO) 1.9 %; HCT - HEMATOCRIT 34.7 % (42.0-52.0); HGB - HEMOGLOBIN 11.1 g/dL (14.0-18.0); LYMPHOCYTES # (AUTO) 2.3 10^3/uL (1.5-3.5); MEAN CORPUSCULAR HEMOGLOBIN 28.5 pg (27.0-31.0); MEAN CORPUSCULAR VOLUME 89.2 fL (80.0-94.0); MEAN PLATELET VOLUME 8.9 fL (7.4-11.4); MONOCYTES # (AUTO) 1.1 10^3/uL (0.0-1.0); MONOCYTES % (AUTO) 12.7 %; NEUTROPHILS % (AUTO) 57.3 %; PLT - PLATELET COUNT 485 10^3/uL (130-450); RED BLOOD COUNT 3.89 10^6/uL (4.70-6.10); RED CELL DISTRIBUTION WIDTH 14.8 % (12.0-15.0); WHITE BLOOD COUNT 8.8 x10^3/uL (4.8-10.8)
[2024-02-06 06:13] LABS: CALCIUM 9.2 mg/dL (8.5-10.3); CREATININE 0.8 mg/dL (0.6-1.3); POTASSIUM 4.2 mmol/L (3.5-4.5)
== END 2024-02-06 23:59 | disposition home or self-care (01) ==
LOC: LAB.R 08:00
PROVIDERS: ATTEND Family Medicine
DX: E87.1 Hypo-osmolality and hyponatremia (principal); D50.8 Other iron deficiency anemias
CPT/HCPCS: 80048; 85025

== ENCOUNTER 2024-02-08 10:31 | Outpatient (CLI) | payer MEDICARE, MEDICAID ==
--- NOTE | 2024-02-08 11:02 | XRAY Report ---
PROCEDURE: Chest 2V INDICATIONS: COUGHING TECHNIQUE: 2 views of the chest were acquired. COMPARISON: 12/10/2023. FINDINGS: Surgical changes and devices: None. Lungs and pleura: No pleural effusions or pneumothorax. There is hyperinflation. No focal infiltrate s. Mediastinum: Mediastinal contours appear normal. Heart size is normal. Bones and chest wall: No suspicious bony lesions. Overlying soft tissues appear unremarkable. IMPRESSION: Hyperinflation. No focal infiltrate, pleural effusion or pneumothorax. Reviewed by: Kerwin Coronado MD on 02/08/2024 11:01 AM PDT Approved by: Kerwin Coronado MD on 02/08/2024 11:01 AM PDT Station ID: [id number]
== END 2024-02-08 10:32 | disposition home or self-care (01) ==
LOC: DI 10:31
DX: R05.1 Acute cough (principal)